=== PATIENT | female | born 1980 | race African-American/Black ===

== ENCOUNTER 2018-07-30 08:57 | Emergency (ER) | payer OTHER ==
[~2018-07-30] VITALS: Ht 157.5 cm; Wt 95.3 kg
--- OUTSIDE RECORDS SUMMARY | 2018-07-30 09:02 | XMS REPORT ---
Author Author [facility] Organization [facility] Address [address] [place], [place] [address] Care Team Providers Care Manager Statistics Name Role Phone PCP Unavailable Allergies and Adverse Reactions Name Reaction Notes NO KNOWN DRUG ALLERGIES Plan of Treatment Not available. Medications Active Name Start Date Estimated Completion Date SIG Comments Metaform Oral 500mg twice daily Bactrim DS Oral Tablet 160-800 mg take 1 tablet by oral route 2 times per day tylenol #3 po 1 q 4-6 hrs p.r.n. Humalog Subcutaneous Solution 100 unit/mL 11/28/2014 inject by subcutaneous route as per insulin sliding scale protocol Lantus Subcutaneous Solution 100 unit/mL 11/28/2014 inject 40 milliliters by subcutaneous route once a day (at bedtime) naproxen sodium oral tablet 550 mg 11/28/2014 12/08/2014 take 1 tablet (550 mg ) by oral route every 12 hours as needed for 10 days Keflex oral capsule 500 mg 11/28/2014 12/05/2014 take 1 capsule by oral route every 8 hours for 7 days Name Start Date Expiration Date SIG Comments Clindamycin HCl Oral Capsule 300 mg 12/05/2009 12/15/2009 take 1 capsule (300 mg) by oral route every 6 hours for 10 days ibuprofen Oral tablet 800 mg 05/03/2013 05/17/2013 take 1 tablet by oral route 3 times a day as needed for 14 days Problem List Description Status Onset Diabetes Active Bronchitis, chronic Active Vital Signs Date Time BP-Sys(mm[Hg] BP-Radha(mm[Hg]) HR(bpm) RR(rpm) Temp WT HT HC BMI BSA BMI Percentile O2 Sat(%) 11/28/2014 1:44:00 PM 120 mmHg 84 mmHg 84 bpm 16 rpm 97.6 F 12/16/2009 11:13:00 AM 100 mmHg 60 mmHg 72 bpm 18 rpm 97.2 F 12/09/2009 2:04:00 PM 110 mmHg 80 mmHg 72 bpm 18 rpm 97.7 F 12/05/2009 10:10:00 AM 110 mmHg 80 mmHg 78 bpm 18 rpm 96.6 F 12/01/2009 2:57:00 PM 100 mmHg 60 mmHg 80 bpm 18 rpm 97.4 F 175 lbs Social History Name Description Comments denies alcohol use denies smoking smokrd 5 months quit 2 months ago History of Procedures Date Ordered Description Order Status 05/03/2013 12:00 AM COMPLETE CBC W/AUTO DIFF WBC Returned 05/03/2013 12:00 AM COMPREHEN METABOLIC PANEL Returned 05/03/2013 12:00 AM GLYCOSYLATED HEMOGLOBIN TEST Returned 12/01/2009 12:00 AM DRAINAGE OF SKIN ABSCESS Reviewed Results Summary Data and Description Results 05/07/2013 8:40 AM GLUCOSE 184.0 mg/dLSODIUM 140.0 mmol/LPOTASSIUM 3.90 mmol/ LCHLORIDE 107.0 mmol/LCO2 27.0 mmol/LBUN 8.0 mg/dLCREATININE 0.70 mg/dLSGOT/AST 11.0 IU/LSGPT/ALT 10.0 IU/LALK PHOS 90.0 IU/LTOTAL PROTEIN 5.90 g/dLALBUMIN 3.40 g/dLTOTAL BILI 0.20 mg/dLCALCIUM 9.30 mg/dLeGFR >60 mL/min/1.73 m2HGB A1C 14.20 %WBC 8.7 RBC 4.55 HGB 12.80 g/dLHCT 37.20 %MCV 82.0 fLMCH 28.10 pgMCHC 34.40 g/dLRDW CV 12.70 %MPV 9.50 fLPLT 333 %NEUT 46.70 %%LYMP 43.60 %%MONO 6.60 %%EOS 2.90 %%BASO 0.20 %#NEUT 4.05 #LYMP 3.78 #MONO 0.57 #EOS 0.25 #BASO 0.02 History Of Immunizations Not available. History of Past Illness Name Date of Onset Comments Bronchitis, chronic Hemorrhoids, External Diabetes Abscess Dec 05 2009 10:11AM Abscess Of Finger Dec 01 2009 3:04PM Abscess Dec 09 2009 2:06PM Abscess Dec 16 2009 11:14AM Diabetes Mellitus, Type II, Uncontrolled May 03 2013 3:49PM Dental caries May 03 2013 3:49PM Diabetes mellitus, Type I Uncontrolled May 17 2013 4:26PM Diabetes Nov 28 2014 1:45PM Dental caries Nov 28 2014 1:45PM Poor vision Nov 28 2014 1:45PM Payers Insurance Name Company Name Plan Name Plan Number Policy Number Policy Group Number Start Date [place] - [place] [facility] ONLY Free Clinic [id number] N/A [facility] [id number] N/A [place] Clinic - [place] [facility] ONLY [facility] [id number] N/A History of Encounters Visit Date Visit Type Provider 11/28/2014 Office visit Gonzalez Morgan APRN 05/17/2013 Office visit Gonzalez Morgan APRN 05/03/2013 Office visit Gonzalez Morgan APRN 12/16/2009 Office visit Loyd Acuña MD 12/09/2009 Office visit Loyd Acuña MD 12/05/2009 Office visit Loyd Acuña MD 12/01/2009 Procedures Loyd Acuña MD 05/05/2009 Laboratory Tom Moreira MD
--- OUTSIDE RECORDS SUMMARY | 2018-07-30 09:03 | XMS REPORT ---
Author Author CHELSEA NORMAN Organization [facility] Address [address] [place] [address] Care Team Providers Care Camelid Fiber Sorter Name Role Phone CHELSEA NORMAN Unavailable PROBLEMS Type Condition ICD9-CM Code XXI76-BF Code Onset Dates Condition Status SNOMED Code Problem Proliferative diabetic retinopathy of both eyes with macular edema associated with type 2 diabetes mellitus E11.3513 Active 8607809640260 Problem manager intermediate current use of insulin Z79.4 Active 115622409 Problem Neuropathy G62.9 Active 480823886 Problem Vitreous hemorrhage, unspecified eye H43.10 Active 61474577 Problem Type 2 diabetes mellitus with unspecified diabetic retinopathy with macular edema E11.311 Active 6113079325658 Problem Iron deficiency anemia, unspecified iron deficiency anemia type D50.9 Active 13182869 Problem 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 56663429 ALLERGIES No Known Allergies ENCOUNTERS Encounter Location Date Diagnosis [address] [address] Apr, Type 2 diabetes mellitus with other circulatory complications E11.59 ; Iron deficiency anemia, unspecified iron deficiency anemia type D50.9 and BMI 40.0-44.9, adult Z68.41 [place] [address] [address] [place] [address] Apr, [place] [address] [address] [place] [id number] [place] [address] Apr, Type 2 diabetes mellitus with other circulatory complications E11.59 [place] [address] [address] [place] [id number] [place] [address] Mar, Type 2 diabetes mellitus with other circulatory complications E11.59 ; retirement current use of insulin Z79.4 ; Leg swelling M79.89 ; Pain in right leg M79.604 ; Pain of left leg M79.605 and BMI 40.0-44.9 , adult Z68.41 [facility] [address] [facility] [id number] [place] [address] Dec, [facility] [place] [address] [id number] [place] [address] Dec [facility] [address] [id number] [place] [address] Dec [facility] [place] [address] [id number] [place] [address] Dec [facility] [address] [id number] [place] [address] November Type 2 diabetes mellitus with other circulatory complications E11.59 ; manager intermediate current use of insulin Z79.4 ; Iron deficiency anemia, unspecified iron deficiency anemia type D50.9 and BMI 40.0-44.9, adult Z68.41 [facility] [address] [id number] [place] [address] November [facility] [address] [facility] [id number] [place] [address] November, [facility] DIAMONDSHAMIKA [id number] [address] November Type 2 diabetes mellitus with other circulatory complications E11.59 ; retirement current use of insulin Z79.4 and Hx of retinal hemorrhage Z86.69 [facility] [address] [id number] [place] [address] November Type 2 diabetes mellitus with other circulatory complications E11.59 ; manager intermediate current use of insulin Z79.4 ; Iron deficiency anemia, unspecified iron deficiency anemia type D50.9 ; Neuropathy G62.9 ; Drug-induced constipation K59.03 ; Peripheral edema R60.9 ; Hx of retinal hemorrhage Z86.69 and BMI 40.0-44.9, adult Z68.41 IMMUNIZATIONS No Known Immunizations SOCIAL HISTORY Never Assessed REASON FOR VISIT headaches / BP concerns-twooden,RMA, pt complaining of headaches for about month now, and her blood sugar is high PLAN OF CARE Activity Details Follow Up 4 Weeks Reason:DM2 f/u VITAL SIGNS Height 62 in 2018-05-23 Weight 233.4 lbs 2018-05-23 Temperature 98.0 degrees Fahrenheit 2018-05-23 Heart Rate 91 bpm 2018-05-23 Respiratory Rate 18 2018-05-23 Oximetry on room air:100 % 2018-05-23 BMI 42.68 kg/m2 2018-05-23 Blood pressure systolic 114 mmHg 2018-05-23 Blood pressure diastolic 82 mmHg 2018-05-23 MEDICATIONS Medication Instructions Dosage Frequency Start Date End Date Duration Status Potassimin 20 meq Orally Once a day 1 tablet 24h Jun, 30 days Active Docusate Sodium 100 MG Orally 2 times a day 1 capsule as needed 12h Active Aspirin Adult Low Dose 81 MG Orally Once a day 1 tablet 24h Active Fiber-Lax 625 MG Orally Once a day 1 tablet as needed 24h Active Furosemide 40 mg Orally 2 times a day 1 tablet 12h 30 days Active Atorvastatin Calcium 10 mg Orally Once a day 1 tablet 24h Apr, 30 day(s) Active Ferrous Sulfate 325 (65 Fe) MG Orally 2 times a day 1 tablet 12h Active Levemir Flexpen 100 UNIT/ML Subcutaneous daily at bedtime inject 20 units Apr, 30 days Active Olmesartan Medoxomil 5 mg Orally Once a day 1 tablet 24h Apr, 90 days Active NovoLog Flexpen 100 UNIT/ML Subcutaneous 3 times a day 5 units 8h November, Active RESULTS No Results PROCEDURES No Known procedures INSTRUCTIONS MEDICATIONS ADMINISTERED No Known Medications MEDICAL (GENERAL) HISTORY Type Description Date Medical History diabetes Medical History Nerve damage Surgical History section X 3 Surgical History cyst removal Surgical History cholecystectomy Surgical History Mass removed from Lt breast Surgical History Laser eye surgery balateral Hospitalization History child Hospitalization History surgeries
--- OUTSIDE RECORDS SUMMARY | 2018-07-30 09:03 | XMS REPORT ---
Author Author CHELSEA NORMAN Organization [facility] Address [address] [place] [address] Care Team Providers Care Lidder Name Role Phone CHELSEA NORMNA Unavailable PROBLEMS Type Condition ICD9-CM Code SZE33-FX Code Onset Dates Condition Status SNOMED Code Problem Proliferative diabetic retinopathy of both eyes with macular edema associated with type 2 diabetes mellitus E11.3513 Active 8329379392340 Problem pipe straightener current use of insulin Z79.4 Active 973921417 Problem Neuropathy G62.9 Active 712394767 Problem Vitreous hemorrhage, unspecified eye H43.10 Active 47406460 Problem Type 2 diabetes mellitus with unspecified diabetic retinopathy with macular edema E11.311 Active 9154401894442 Problem Iron deficiency anemia, unspecified iron deficiency anemia type D50.9 Active 95145853 Problem 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 55160537 ALLERGIES No Information ENCOUNTERS Encounter Location Date Diagnosis [place] [address] [place] [address] Apr, [place] [address] [place] [address] Apr, Type 2 diabetes mellitus with other circulatory complications E11.59 [place] [address] [address] [place] [address] Mar, Type 2 diabetes mellitus with other circulatory complications E11.59 ; pipe straightener current use of insulin Z79.4 ; Leg swelling M79.89 ; Pain in right leg M79.604 ; Pain of left leg M79.605 and BMI 40.0-44.9 , adult Z68.41 [facility] [address], [place] [address] Dec, [facility] [id number] [place] [address] Dec [facility] [address] [id number] [place] [address] Dec [facility] [address] [id number] [place] [address] Dec [facility] [place] [address] [id number] [place] [address] November Type 2 diabetes mellitus with other circulatory complications E11.59 ; pipe straightener current use of insulin Z79.4 ; Iron deficiency anemia, unspecified iron deficiency anemia type D50.9 and BMI 40.0-44.9, adult Z68.41 [facility] [place] [address] [id number] [place] [address] November [facility] [address] [facility] [id number] [place] [address] November, [facility] [place] [address] [id number] [place] [address] November Type 2 diabetes mellitus with other circulatory complications E11.59 ; pipe straightener current use of insulin Z79.4 and Hx of retinal hemorrhage Z86.69 [facility] L[address] [address] [id number] [place] [address] November Type 2 diabetes mellitus with other circulatory complications E11.59 ; pipe straightener current use of insulin Z79.4 ; Iron deficiency anemia, unspecified iron deficiency anemia type D50.9 ; Neuropathy G62.9 ; Drug-induced constipation K59.03 ; Peripheral edema R60.9 ; Hx of retinal hemorrhage Z86.69 and BMI 40.0-44.9, adult Z68.41 IMMUNIZATIONS No Known Immunizations SOCIAL HISTORY Never Assessed REASON FOR VISIT Lab/meds PLAN OF CARE VITAL SIGNS MEDICATIONS Unknown Medications RESULTS No Results PROCEDURES No Known procedures [...]
--- OUTSIDE RECORDS SUMMARY | 2018-07-30 09:03 | XMS REPORT ---
Author Author CHELSEA NORMAN Organization [facility] Address [address] [place] [address] Care Team Providers Care Resource Center Teacher Name Role Phone CHELSEA NORMAN Unavailable PROBLEMS Type Condition ICD9-CM Code IIC72-PP Code Onset Dates Condition Status SNOMED Code Problem Proliferative diabetic retinopathy of both eyes with macular edema associated with type 2 diabetes mellitus E11.3513 Active 6472395667183 Problem intermission coordinator current use of insulin Z79.4 Active 827966248 Problem Neuropathy G62.9 Active 064867672 Problem Vitreous hemorrhage, unspecified eye H43.10 Active 87129308 Problem Type 2 diabetes mellitus with unspecified diabetic retinopathy with macular edema E11.311 Active 3051073779438 Problem Iron deficiency anemia, unspecified iron deficiency anemia type D50.9 Active 25003576 Problem 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 50931314 ALLERGIES No Information ENCOUNTERS Encounter Location Date Diagnosis [place] [address] [place] [address] Apr, [place] [address] [place] [address] Apr, Type 2 diabetes mellitus with other circulatory complications E11.59 [place] [address] [address] [place] [address] Mar, Type 2 diabetes mellitus with other circulatory complications E11.59 ; intermission coordinator current use of insulin Z79.4 ; Leg swelling M79.89 ; Pain in right leg M79.604 ; Pain of left leg M79.605 and BMI 40.0-44.9 , adult Z68.41 [facility] [address] [address] Dec, [facility] [id number] [place] [address] Dec [facility] [address] [address] [id number] [place] [address] Dec [facility] [address] [id number] [place] [address] Dec [facility] [address] [address] [id number] [place] [address] November Type 2 diabetes mellitus with other circulatory complications E11.59 ; intermission coordinator current use of insulin Z79.4 ; Iron deficiency anemia, unspecified iron deficiency anemia type D50.9 and BMI 40.0-44.9, adult Z68.41 [facility] [place] [address] [id number] [place] [address] November [facility] [address] [facility] [id number] [place] [address] November, [facility] DIAMOND [address] [id number] [place] [address] November Type 2 diabetes mellitus with other circulatory complications E11.59 ; intermission coordinator current use of insulin Z79.4 and Hx of retinal hemorrhage Z86.69 [facility] [place] [address] [id number] [place] [address] November Type 2 diabetes mellitus with other circulatory complications E11.59 ; intermission coordinator current use of insulin Z79.4 ; Iron deficiency anemia, unspecified iron deficiency anemia type D50.9 ; Neuropathy G62.9 ; Drug-induced constipation K59.03 ; Peripheral edema R60.9 ; Hx of retinal hemorrhage Z86.69 and BMI 40.0-44.9, adult Z68.41 IMMUNIZATIONS No Known Immunizations SOCIAL HISTORY Never Assessed REASON FOR VISIT Lantus PLAN OF CARE VITAL SIGNS MEDICATIONS Medication Instructions Dosage Frequency Start Date End Date Duration Status Atorvastatin Calcium 10 mg Orally Once a day 1 tablet 24h Apr, 30 day(s) Active Levemir Flexpen 100 UNIT/ML Subcutaneous daily at bedtime inject 15 units Apr, Active RESULTS No Results PROCEDURES No Known [...]
--- OUTSIDE RECORDS SUMMARY | 2018-07-30 09:04 | XMS REPORT | Continuity of Care Document ---
Author Author [facility] Organization [facility] Address Unknown Phone Unavailable Allergies There is no data. Medications There is no data. Problems There is no data. Procedures There is no data. Results Test Result Range CBC - 04/18/18 15:24 WHITE BLOOD CELL COUNT 8.7 Thousand/uL 3.8-10.8 RED BLOOD CELL COUNT 4.27 Million/uL 3.80-5.10 HEMOGLOBIN 10.0 g/dL 11.7-15.5 HEMATOCRIT 33.1 % 35.0-45.0 MCV 77.5 fL 80.0-100.0 MCH 23.4 pg 27.0-33.0 MCHC 30.2 g/dL 32.0-36.0 RDW 12.7 % 11.0-15.0 PLATELET COUNT 399 Thousand/uL 140-400 MPV 10.3 fL 7.5-12.5 ABSOLUTE NEUTROPHILS 5733 cells/uL 4045-3291 ABSOLUTE LYMPHOCYTES 2158 cells/uL 850-3900 ABSOLUTE MONOCYTES 626 cells/uL 200-950 ABSOLUTE EOSINOPHILS 139 cells/uL 15-500 ABSOLUTE BASOPHILS 44 cells/uL 0-200 NEUTROPHILS 65.9 % NRG LYMPHOCYTES 24.8 % NRG MONOCYTES 7.2 % NRG EOSINOPHILS 1.6 % NRG BASOPHILS 0.5 % NRG Encounters ACCT No. Visit Date/Time Discharge Status Pt. Type Provider Facility Loc./Unit Complaint [id number] 11/28/2014 14:34:38 11/28/2014 23:59:59 CLS Outpatient Gonzalez Morgan [id number] 01/18/2018 10:00:00 01/18/2018 23:59:59 [address] LI [facility] [id number] 04/18/2018 14:20:00 Document Registration
--- OUTSIDE RECORDS SUMMARY | 2018-07-30 09:04 | XMS REPORT ---
Author Author HARMAN LI [facility] L[facility] Address [address] [place] [address] Care Team Providers Care Flight Test Shop Mechanic Name Role Phone HARMAN LI Unavailable PROBLEMS Type Condition ICD9-CM Code ZEA96-SU Code Onset Dates Condition Status SNOMED Code Problem Proliferative diabetic retinopathy of both eyes with macular edema associated with type 2 diabetes mellitus E11.3513 Active 4614266191087 Problem intermediate project manager current use of insulin Z79.4 Active 960053826 Problem Neuropathy G62.9 Active 522704537 Problem Vitreous hemorrhage, unspecified eye H43.10 Active 36889580 Problem Type 2 diabetes mellitus with unspecified diabetic retinopathy with macular edema E11.311 Active 6026371607543 Problem Iron deficiency anemia, unspecified iron deficiency anemia type D50.9 Active 27249204 Problem 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 89407541 ALLERGIES No Information ENCOUNTERS Encounter Location Date Diagnosis [facility] [address] [facility] [id number] [place] [address] Dec, [facility] [address] [address] [id number] [place] [address] Dec [facility] [address] [address] [id number] [place] [address] Dec [facility] [address] [id number] [place] [address] Dec [facility] [place] [address] [id number] [place] [address] November Type 2 diabetes mellitus with other circulatory complications E11.59 ; half-way current use of insulin Z79.4 ; Iron deficiency anemia, unspecified iron deficiency anemia type D50.9 and BMI 40.0-44.9, adult Z68.41 [facility] [place] [address] [id number] [place] [address] November [facility] [address] [facility] [id number] [place] [address] November, [facility] [address] [id number] [place] [address] November Type 2 diabetes mellitus with other circulatory complications E11.59 ; intermediate project manager current use of insulin Z79.4 and Hx of retinal hemorrhage Z86.69 [facility] [address] [id number] [place] [address] November Type 2 diabetes mellitus with other circulatory complications E11.59 ; intermediate project manager current use of insulin Z79.4 ; Iron deficiency anemia, unspecified iron deficiency anemia type D50.9 ; Neuropathy G62.9 ; Drug-induced constipation K59.03 ; Peripheral edema R60.9 ; Hx of retinal hemorrhage Z86.69 and BMI 40.0-44.9, adult Z68.41 IMMUNIZATIONS No Known Immunizations SOCIAL HISTORY Never Assessed REASON FOR VISIT eye exam PLAN OF CARE VITAL SIGNS MEDICATIONS Unknown [...]
--- OUTSIDE RECORDS SUMMARY | 2018-07-30 09:04 | XMS REPORT ---
Author Author HARMAN LI [facility] LOBO Address [address] [place] [address] Care Team Providers Care Sheep Farm Worker Name Role Phone HARMAN LI Unavailable PROBLEMS Type Condition ICD9-CM Code VKC22-CP Code Onset Dates Condition Status SNOMED Code Problem Proliferative diabetic retinopathy of both eyes with macular edema associated with type 2 diabetes mellitus E11.3513 Active 4595055667139 Problem termite exterminator current use of insulin Z79.4 Active 887154616 Problem Neuropathy G62.9 Active 206038081 Problem Vitreous hemorrhage, unspecified eye H43.10 Active 23180799 Problem Type 2 diabetes mellitus with unspecified diabetic retinopathy with macular edema E11.311 Active 8693648243478 Problem Iron deficiency anemia, unspecified iron deficiency anemia type D50.9 Active 11626714 Problem 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 [id number] [place] [address] Dec, [facility] [address] [address] [id number] [place] [address] Dec [facility] [address] [id number] [place] [address] Dec [facility] [address] [id number] [place] [address] Dec [facility] [place] [address] [id number] [place] [address] November Type 2 diabetes mellitus with other circulatory complications E11.59 ; MCFP current use of insulin Z79.4 ; Iron deficiency anemia, unspecified iron deficiency anemia type D50.9 and BMI 40.0-44.9, adult Z68.41 [facility] [place] [address] [id number] [place] [address] November [facility] [address] [facility] [id number] [place] [address] November, [facility] [address] [id number] [place] [address] November Type 2 diabetes mellitus with other circulatory complications E11.59 ; termite exterminator current use of insulin Z79.4 and Hx of retinal hemorrhage Z86.69 [facility] [address] [id number] [place] [address] November Type 2 diabetes mellitus with other circulatory complications E11.59 ; termite exterminator current use of insulin Z79.4 ; Iron deficiency anemia, unspecified iron deficiency anemia type D50.9 ; Neuropathy G62.9 ; Drug-induced constipation K59.03 ; Peripheral edema R60.9 ; Hx of retinal hemorrhage Z86.69 and BMI 40.0-44.9, adult Z68.41 IMMUNIZATIONS No Known Immunizations SOCIAL HISTORY Never Assessed REASON FOR VISIT FYI only PLAN OF CARE VITAL SIGNS MEDICATIONS Unknown [...]
--- OUTSIDE RECORDS SUMMARY | 2018-07-30 09:04 | XMS REPORT | CCD ---
Author Author RANDEE RADER Organization Unknown Address [address] [facility] [address] [place], [place] [address] Care Team Providers Care Informatics Pharmacist Name Role Phone MIGUEL JUAREZ, CHELSEA Del Rio Attphyedith CHELSEA RIVERA MDsularissa Vital Signs Unknown. Allergies Allergy Code Allergy Type Reaction Status No Known Allergies 0 No known allergies Active Procedures Unknown. History of Immunizations Unknown. Problems Unknown. Results Unknown. Medications Unknown. Medications Administered Unknown. Encounters Unknown. Social History Smoking Status Code Start Date End Date Never smoker [id number] Patient Decision Aids Unknown. Discharge Instructions You were admitted to [facility] on 12/16/2013. You were discharged from [facility] on 12/16/2013. Should you have any questions prior to discharge, please contact a member of your healthcare team. If you have left the hospital and have any questions, please contact your primary care physician. Chief Complaint and Reason For Visit Chief Complaint Date of Onset HAND SWELLING Function Status Unknown. Referral/Transition of Care Unknown.
--- OUTSIDE RECORDS SUMMARY | 2018-07-30 09:04 | XMS REPORT ---
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 [id number] [place] [address] Dec, [facility] [address] [id number] [place] [address] Dec [facility] [address] [id number] [place] [address] Dec [facility] [address] [id number] [place] [address] Dec [facility] [address] [id number] [place] [address] November Type 2 diabetes mellitus with other circulatory complications E11.59 ; retirement current use of insulin Z79.4 ; Iron deficiency anemia, unspecified iron deficiency anemia type D50.9 and BMI 40.0-44.9, adult Z68.41 [facility] [place] [address] [id number] [place] [address] November [facility] [address] [facility] [id number] [place] [address] November, [facility] [address] [id number] [place] [address] November Type 2 diabetes mellitus with other circulatory complications E11.59 ; termite control service representative current use of insulin Z79.4 and Hx of retinal hemorrhage Z86.69 [facility] [address] [id number] [place] [address] November Type 2 diabetes mellitus with other circulatory complications E11.59 ; termite control service representative current use of insulin Z79.4 ; Iron deficiency anemia, unspecified iron deficiency anemia type D50.9 ; Neuropathy G62.9 ; Drug-induced constipation K59.03 ; Peripheral edema R60.9 ; Hx of retinal hemorrhage Z86.69 and BMI 40.0-44.9, adult Z68.41 IMMUNIZATIONS No Known Immunizations SOCIAL HISTORY Never Assessed REASON FOR VISIT Repository Medication PLAN OF CARE VITAL SIGNS MEDICATIONS Unknown [...]
--- OUTSIDE RECORDS SUMMARY | 2018-07-30 09:04 | XMS REPORT | CCD ---
Author Author FAYE ORDAZ Organization Unknown Address [address] [facility] [address] [place], [place] [address] Care Team Providers Care Mender Knit Goods Name Role Phone [place] ER, PATRICIA DO Attphys [place] ER, PATRICIA DO Prisurg Vital Signs Unknown or Not Available. Allergies Allergy Code Allergy Type Reaction Status No Known Allergies 0 No known allergies Active Procedures Procedure Code Procedure Type Date BEDSIDE GLUCOSE 06406463 SNOMED CT 05/14/2014 CULTURE URINE 378656433 SNOMED CT 05/14/2014 ^CBC W/AUTO DIFF 4067732 SNOMED CT 05/14/2014 URINALYSIS C&S IF IND 160647826 SNOMED CT 05/14/[address] 05/14/2014 COMPREHENSIVE METABOLIC PANEL 470676380 SNOMED CT 2013 CBC W/ AUTO DIFF (RFLX MAN DIFF IF IND) 5128050 SNOMED CT 05/14/2014 History of Immunizations Unknown or Not Available. Problems Unknown or Not Available. Results BEDSIDE GLUCOSE - Collect Date/Time: 05/14/2014 18:11 Test Name Code Test Result Test Units Test Ref Range GLUCOSE POCT 260 MG/DL L=70 H=100 COMPREHENSIVE METABOLIC PANEL - Collect Date/Time: 05/14/2014 17:20 Test Name Code Test Result Test Units Test Ref Range GLUCOSE 2345-7 521 MG/DL L=70 H=100 SODIUM 2951-2 133 MEQ/L L=135 H=148 POTASSIUM 2823-3 4.1 MEQ/L L=3.5 H=5.3 CHLORIDE 2075-0 99 MEQ/L L=96 H=110 CO2 2028-9 24 MEQ/L L=22 H=29 BUN 3094-0 11 MG/DL L=8 H=22 CREATININE 2160-0 0.8 MG/DL L=0.6 H=1.6 SGOT/AST 1920-8 10 IU/L L=10 H=40 SGPT/ALT 1742-6 9 IU/L L=8 H=54 ALK PHOS 6768-6 84 IU/L L=35 H=115 TOTAL PROTEIN 2885-2 6.0 G/DL L=5.5 H=8.5 ALBUMIN 1751-7 3.4 G/DL L=3.1 H=5.4 TOTAL BILI 1975-2 0.2 MG/DL L=0.0 H=1.5 CALCIUM 28972-6 9.0 MG/DL L=8.2 H=10.6 AGE 33 yrs GFR NonAA 82 GFR AA 99 eGFR 60 mL/min/1.7 eGFR AA* 60 mL/min/1.7 RECHECKED GLUCOSE N/A LIPASE - Collect Date/Time: 05/14/2014 17:20 Test Name Code Test Result Test Units Test Ref Range LIPASE 3040-3 45 U/L L=8 H=78 CBC W/ AUTO DIFF (RFLX MAN DIFF IF IND) - Collect Date/Time: 05/14/2014 17:20 Test Name Code Test Result Test Units Test Ref Range WBC 34180-4 7.7 TH/CMM L=4.5 H=10.8 RBC 789-8 4.48 ML/CMM L=4.20 H=5.40 HGB 718-7 12.4 G/DL L=12.0 H=16.0 HCT 4544-3 36.2 % L=37.0 H=47.0 MCV 81 FL L=81 H=99 MCH 27.7 PG L=27.0 H=33.0 MCHC 34.3 G/DL L=31.0 H=36.0 RDW SD 37 FL L=36 H=50 RDW CV 12.8 % L=0.0 H=14.8 MPV 9.4 FL L=9.3 H=12.5 PLT 777-3 272 TH/CMM L=130 H=440 NRBC# 0.00 TH/CMM L=0.00 H=0.00 NRBC% 0.0 /100WBC L=0.0 H=2.0 %NEUT 53.4 % %LYMP 39.6 % %MONO 5.1 % %EOS 1.6 % %BASO 0.3 % #NEUT 4.10 TH/CMM L=2.10 H=8.20 #LYMP 3.03 TH/CMM L=0.90 H=5.20 #MONO 0.39 TH/CMM L=0.16 H=1.00 #EOS 0.12 TH/CMM L=0.00 H=0.80 #BASO 0.02 TH/CMM L=0.00 H=0.20 MANUAL DIFF NOT IND N/A URINALYSIS C&S IF IND - Collect Date/Time: 05/14/2014 17:45 Test Name Code Test Result Test Units Test Ref Range COLOR YELLOW N/A NL: YELLOW APPEARANCE CLEAR N/A NL: CLEAR SPEC GRAV <=1.005 N/A NL: 1.002 - 1.022 pH 6.0 N/A NL: 5 - 9 PROTEIN NEGATIVE N/A NL: NEGATIVE mg/dl GLUCOSE >=1000 N/A NL: NEGATIVE mg/dl KETONE NEGATIVE N/A NL: NEGATIVE mg/dl BILIRUBIN NEGATIVE N/A NL: NEGATIVE BLOOD SMALL N/A NL: NEGATIVE NITRITE NEGATIVE N/A NL: NEGATIVE LEUK SCREEN NEGATIVE N/A NL: NEGATIVE WBC/HPF 5-10 N/A NL: NEGATIVE RBC/HPF 0-5 N/A NL: NEGATIVE CASTS/LPF NEGATIVE N/A NL: NEGATIVE CRYSTALS NEGATIVE N/A NL: NEGATIVE MUCOUS THRDS NEGATIVE N/A NL: NEGATIVE BACTERIA 1+ N/A NL: NEGATIVE EPITH CELLS 1+ SQUAMOUS N/A NL: NEGATIVE TRICHOMONAS NEGATIVE N/A NL: NEGATIVE YEAST NEGATIVE N/A NL: NEGATIVE CULT SET UP? YES N/A Medications Unknown or Not Available. Medications Administered Unknown or Not Available. Encounters Encounter Diagnosis Diagnosis Code Start Date OTHER ABNORMAL GLUCOSE 82425 05/14/2014 Social History Smoking Status Code Start Date End Date Never smoker 787688556 Patient Decision Aids Unknown or Not Available. Discharge Instructions You were admitted to [facility] on 05/14/2014 with a principal diagnosis of OTHER ABNORMAL GLUCOSE. You were discharged from [facility] on 05/14/2014. Should you have any questions prior to discharge, please contact a member of your healthcare team. If you have left the hospital and have any questions, please contact your primary care physician. Chief Complaint and Reason For Visit Chief Complaint Date of Onset NAUSEA VOMITING Function Status Unknown or Not Available. Referral/Transition of Care Unknown or Not Available.
--- OUTSIDE RECORDS SUMMARY | 2018-07-30 09:04 | XMS REPORT ---
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 Z79.4 Active 472046719 Problem Neuropathy G62.9 Active 916682356 Problem Vitreous hemorrhage, unspecified eye H43.10 Active 71542195 Problem Type 2 diabetes mellitus with unspecified diabetic retinopathy with macular edema E11.311 Active 6374056712385 Problem Iron deficiency anemia, unspecified iron deficiency anemia type D50.9 Active 14137762 Problem 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 70124960 ALLERGIES No Information ENCOUNTERS Encounter Location Date Diagnosis [facility] [place] [address] [facility] [id number] [place] [address] Dec, [facility] [address] [id number] [place] [address] Dec [facility] [address] [id number] [place] [address] Dec [facility] [address] [id number] [place] [address] Dec [facility] [address] [id number] [place] [address] November Type 2 diabetes mellitus with other circulatory complications E11.59 ; intermediate current use of insulin Z79.4 ; Iron deficiency anemia, unspecified iron deficiency anemia type D50.9 and BMI 40.0-44.9, adult Z68.41 [facility] [place] [address] [id number] [place] [address] November [facility] [place] [address] [facility] [id number] [place] [address] November, [facility] [address] [id number] [place] [address] November Type 2 diabetes mellitus with other circulatory complications E11.59 ; roasterman current use of insulin Z79.4 and Hx of retinal hemorrhage Z86.69 [facility] [address] [id number] [place] [address] November Type 2 diabetes mellitus with other circulatory complications E11.59 ; roasterman current use of insulin Z79.4 ; Iron deficiency anemia, unspecified iron deficiency anemia type D50.9 ; Neuropathy G62.9 ; Drug-induced constipation K59.03 ; Peripheral edema R60.9 ; Hx of retinal hemorrhage Z86.69 and BMI 40.0-44.9, adult Z68.41 IMMUNIZATIONS No Known Immunizations SOCIAL HISTORY Never Assessed REASON FOR VISIT PLAN OF CARE VITAL SIGNS MEDICATIONS Unknown [...]
--- OUTSIDE RECORDS SUMMARY | 2018-07-30 09:04 | XMS REPORT ---
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.4 Active 643602990 Problem Neuropathy G62.9 Active 324191779 Problem Vitreous hemorrhage, unspecified eye H43.10 Active 16392057 Problem Type 2 diabetes mellitus with unspecified diabetic retinopathy with macular edema E11.311 Active 5315123674149 Problem Iron deficiency anemia, unspecified iron deficiency anemia type D50.9 Active 29411867 Problem 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 23329699 ALLERGIES No Information ENCOUNTERS Encounter Location Date Diagnosis [facility] [address] [facility] [id number] [place] [address] Dec, [facility] [address] [id number] [place] [address] Dec [facility] [address] [id number] [place] [address] Dec [facility] [address] [id number] [place] [address] Dec [facility] [address] [id number] [place] [address] November Type 2 diabetes mellitus with other circulatory complications E11.59 ; FPC current use of insulin Z79.4 ; Iron deficiency anemia, unspecified iron deficiency anemia type D50.9 and BMI 40.0-44.9, adult Z68.41 [facility] [address] [id number] [place] [address] November [facility] [address] [facility] [id number] [place] [address] November, [facility] [place] [address] [id number] [place] [address] November Type 2 diabetes mellitus with other circulatory complications E11.59 ; termite exterminator helper current use of insulin Z79.4 and Hx of retinal hemorrhage Z86.69 [facility] [address] [id number] [place] [address] November Type 2 diabetes mellitus with other circulatory complications E11.59 ; termite exterminator helper current use of insulin Z79.4 ; Iron deficiency anemia, unspecified iron deficiency anemia type D50.9 ; Neuropathy G62.9 ; Drug-induced constipation K59.03 ; Peripheral edema R60.9 ; Hx of retinal hemorrhage Z86.69 and BMI 40.0-44.9, adult Z68.41 IMMUNIZATIONS No Known Immunizations SOCIAL HISTORY Never Assessed REASON FOR VISIT Requests return call PLAN OF CARE VITAL SIGNS MEDICATIONS Unknown [...]
--- OUTSIDE RECORDS SUMMARY | 2018-07-30 09:04 | XMS REPORT ---
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.4 Active 262979065 Problem Neuropathy G62.9 Active 777019173 Problem Vitreous hemorrhage, unspecified eye H43.10 Active 24748751 Problem Type 2 diabetes mellitus with unspecified diabetic retinopathy with macular edema E11.311 Active 6462990870944 Problem Iron deficiency anemia, unspecified iron deficiency anemia type D50.9 Active 32215511 Problem 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 85592706 ALLERGIES No Information ENCOUNTERS Encounter Location Date Diagnosis [facility] [address] [facility] [id number] [place] [address] Dec, [facility] [address] [id number] [place] [address] Dec [facility] [address] [id number] [place] [address] Dec [facility] [place] [address] [id number] [place] [address] Dec [facility] [address] [id number] [place] [address] November Type 2 diabetes mellitus with other circulatory complications E11.59 ; longterm current use of insulin Z79.4 ; Iron deficiency anemia, unspecified iron deficiency anemia type D50.9 and BMI 40.0-44.9, adult Z68.41 [facility] [place] [address] [id number] [place] [address] November [facility] [address] [facility] [id number] [place] [address] November, [facility] [address] [id number] [place] [address] November Type 2 diabetes mellitus with other circulatory complications E11.59 ; ad terminal makeup operator current use of insulin Z79.4 and Hx of retinal hemorrhage Z86.69 [facility] [address] [id number] [place] [address] November Type 2 diabetes mellitus with other circulatory complications E11.59 ; ad terminal makeup operator current use of insulin Z79.4 ; Iron deficiency anemia, unspecified iron deficiency anemia type D50.9 ; Neuropathy G62.9 ; Drug-induced constipation K59.03 ; Peripheral edema R60.9 ; Hx of retinal hemorrhage Z86.69 and BMI 40.0-44.9, adult Z68.41 IMMUNIZATIONS No Known Immunizations SOCIAL HISTORY Never Assessed REASON FOR VISIT Patient care status PLAN OF CARE VITAL SIGNS MEDICATIONS Unknown [...]
--- OUTSIDE RECORDS SUMMARY | 2018-07-30 09:04 | XMS REPORT | CCD ---
Author Author FAYE ORDAZ Organization Unknown Address [address] [facility] [address] [place], [place] [address] Care Team Providers Care Aircraft Tool Maker Name Role Phone [place] ER, APTRICIA DO Attphys [place] ER, PATRICIA DO Prisurg Vital Signs Unknown or Not Available. Allergies Allergy Code Allergy Type Reaction Status No Known Allergies 0 No known allergies Active Procedures Procedure Code Procedure Type Date BEDSIDE GLUCOSE 32116125 SNOMED CT 05/16/2014 History of Immunizations Unknown or Not Available. Problems Unknown or Not Available. Results BEDSIDE GLUCOSE - Collect Date/Time: 05/16/2014 19:55 Test Name Code Test Result Test Units Test Ref Range GLUCOSE POCT 139 MG/DL L=70 H=100 Medications Unknown or Not Available. Medications Administered Unknown or Not Available. Encounters Encounter Diagnosis Diagnosis Code Start Date DIABETES W OTH SPEC MANIFEST,TYPE 2 24662 05/16/2014 Social History Smoking Status Code Start Date End Date Never smoker 140257220 Patient Decision Aids Unknown or Not Available. Discharge Instructions You were admitted to [facility] on 05/16/2014 with a principal diagnosis of DIABETES W OTH SPEC MANIFEST,TYPE 2. You were discharged from [facility] on 05/16/2014. Should you have any questions prior to discharge, please contact a member of your healthcare team. If you have left the hospital and have any questions, please contact your primary care physician. Chief Complaint and Reason For Visit Chief Complaint Date of Onset DIZZINESS HEADACHE HIGH BLOOD SUGAR Function Status Unknown or Not Available. Referral/Transition of Care Unknown or Not Available.
--- OUTSIDE RECORDS SUMMARY | 2018-07-30 09:04 | XMS REPORT ---
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 Z79.4 Active 681723964 Problem Neuropathy G62.9 Active 978979274 Problem Vitreous hemorrhage, unspecified eye H43.10 Active 76670339 Problem Type 2 diabetes mellitus with unspecified diabetic retinopathy with macular edema E11.311 Active 6220123646921 Problem Iron deficiency anemia, unspecified iron deficiency anemia type D50.9 Active 61927627 Problem 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 84291230 ALLERGIES No Known Allergies ENCOUNTERS Encounter Location Date Diagnosis [place] [address] [id number] [place] [address] 04 Apr, 2018 Type 2 diabetes mellitus with other circulatory complications E11.59 [place] [id number] [place] [address] Mar, Type 2 diabetes mellitus with other circulatory complications E11.59 ; alf current use of insulin Z79.4 ; Leg swelling M79.89 ; Pain in right leg M79.604 ; Pain of left leg M79.605 and BMI 40.0-44.9 , adult Z68.41 [facility] [address] [address] Dec, [facility] [address] [id number] [place] [address] Dec [facility] [address] [id number] [place] [address] Dec [facility] [address] [id number] [place] [address] Dec [facility] [address] [id number] [place] [address] November Type 2 diabetes mellitus with other circulatory complications E11.59 ; terminal supervisor current use of insulin Z79.4 ; Iron deficiency anemia, unspecified iron deficiency anemia type D50.9 and BMI 40.0-44.9, adult Z68.41 [facility] [address] [id number] [place] [address] November [facility] [address] [facility] [id number] [place] [address] November, [facility] [address] [address] [id number] [place] [address] November Type 2 diabetes mellitus with other circulatory complications E11.59 ; alf current use of insulin Z79.4 and Hx of retinal hemorrhage Z86.69 [facility] [address] [id number] [place] [address] November Type 2 diabetes mellitus with other circulatory complications E11.59 ; alf current use of insulin Z79.4 ; Iron deficiency anemia, unspecified iron deficiency anemia type D50.9 ; Neuropathy G62.9 ; Drug-induced constipation K59.03 ; Peripheral edema R60.9 ; Hx of retinal hemorrhage Z86.69 and BMI 40.0-44.9, adult Z68.41 IMMUNIZATIONS No Known Immunizations SOCIAL HISTORY Never Assessed REASON FOR VISIT New provider visit-AMBREEN scherer, patient complain of her right eye is bleeding. blurried visions in right eye PLAN OF CARE Activity Details Follow Up 3 Months Reason: Pending Test A1C (IN HOUSE) Pending Test TSH w/ FREE T4 Pending Test LIPID PANEL Pending Test CMP Pending Test CBC VITAL SIGNS Height 62 in 2018-04-18 Weight 229.8 lbs 2018-04-18 Temperature 98.0 degrees Fahrenheit 2018-04-18 Heart Rate 93 bpm 2018-04-18 Respiratory Rate 18 2018-04-18 Oximetry on room air:100 % 2018-04-18 BMI 42.03 kg/m2 2018-04-18 Blood pressure systolic 110 mmHg 2018-04-18 Blood pressure diastolic 92 mmHg 2018-04-18 MEDICATIONS Medication Instructions Dosage Frequency Start Date End Date Duration Status Lantus SoloStar 100 UNIT/ML Subcutaneous daily at bedtime 15 units November 90 days Active Potassimin 20 meq Orally Once a day 1 tablet 24h Jun, 30 days Active Furosemide 40 mg Orally 2 times a day 1 tablet 12h 30 days Active Aspirin Adult Low Dose 81 MG Orally Once a day 1 tablet 24h Active Nabumetone 750 mg Orally 2 times a day 1 tablet 12h Jun, 30 days Active Fiber-Lax 625 MG Orally Once a day 1 tablet as needed 24h Active Ferrous Sulfate 325 (65 Fe) MG Orally 2 times a day 1 tablet 12h Active NovoLog Flexpen 100 UNIT/ML Subcutaneous 3 times a day 5 units 8h November, 90 days Active Docusate Sodium 100 MG Orally 2 times a day 1 capsule as needed 12h Active APAP 325 MG Orally 2 times a day 1 tablet as needed 12h Active RESULTS Name Result Date Reference Range MICROALBUMIN, URINE (IN HOUSE) 2018-04-18 MICROALBUMIN normal Lot # [id number] Exp date 12/2018 Clarity clear Color yellow ALB 150 CRE 50 A:C (IN HOUSE) 300 Control + Control Lot # Exp date PROCEDURES Procedure Date Ordered Result Body Site COMPLETE CBC W/AUTO DIFF WBC Apr 18, 2018 GLYCATED HEMOGLOBIN TEST Apr 18, 2018 VENIPUNCT, ROUTINE* Apr 18, 2018 MICROALBUMIN, SEMIQUANT Apr 18, 2018 LIPID PANEL Apr 18, 2018 COMPREHEN METABOLIC PANEL Apr 18, 2018 ASSAY OF FREE THYROXINE Apr 18, 2018 ASSAY THYROID STIM HORMONE Apr 18, 2018 INSTRUCTIONS MEDICATIONS ADMINISTERED No Known Medications MEDICAL (GENERAL) HISTORY Type Description Date Medical History diabetes Medical History Nerve damage Surgical History section X 3 Surgical History cyst removal Surgical History cholecystectomy Surgical History Mass removed from Lt breast Surgical History Laser eye surgery balateral Hospitalization History child Hospitalization History surgeries
--- OUTSIDE RECORDS SUMMARY | 2018-07-30 09:04 | XMS REPORT ---
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 use of insulin Z79.4 Active 172953732 Problem Neuropathy G62.9 Active 072155796 Problem Vitreous hemorrhage, unspecified eye H43.10 Active 84395591 Problem Type 2 diabetes mellitus with unspecified diabetic retinopathy with macular edema E11.311 Active 7509203554768 Problem Iron deficiency anemia, unspecified iron deficiency anemia type D50.9 Active 12495874 Problem 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 75966145 ALLERGIES No Known Allergies ENCOUNTERS Encounter Location Date Diagnosis [facility] [address] [facility] [id number] [place] [address] Dec, [facility] [address] [id number] [place] [address] Dec [facility] [address] [id number] [place] [address] Dec [facility] [address] [id number] [place] [address] Dec [facility] [address] [id number] [place] [address] November Type 2 diabetes mellitus with other circulatory complications E11.59 ; medical terminologist current use of insulin Z79.4 ; Iron deficiency anemia, unspecified iron deficiency anemia type D50.9 and BMI 40.0-44.9, adult Z68.41 [facility] [address] [id number] [place] [address] November [facility] [address] [facility] [id number] [place] [address] November, [facility] [address] [id number] [place] [address] November Type 2 diabetes mellitus with other circulatory complications E11.59 ; halfway current use of insulin Z79.4 and Hx of retinal hemorrhage Z86.69 [facility] [address] [id number] [place] [address] November Type 2 diabetes mellitus with other circulatory complications E11.59 ; halfway current use of insulin Z79.4 ; Iron deficiency anemia, unspecified iron deficiency anemia type D50.9 ; Neuropathy G62.9 ; Drug-induced constipation K59.03 ; Peripheral edema R60.9 ; Hx of retinal hemorrhage Z86.69 and BMI 40.0-44.9, adult Z68.41 IMMUNIZATIONS No Known Immunizations SOCIAL HISTORY Never Assessed REASON FOR VISIT Establish Care. , Pt needs needles or pens for insulin. OSEAS Nichole PLAN OF CARE Activity Details Follow Up 2 Weeks Reason:diabetes VITAL SIGNS Height 62 in 2017-11-29 Weight 241.7 lbs 2017-11-29 Temperature 98.1 degrees Fahrenheit 2017-11-29 Heart Rate 82 bpm 2017-11-29 Respiratory Rate 18 2017-11-29 Oximetry 99 % 2017-11-29 BMI 44.20 kg/m2 2017-11-29 Blood pressure systolic 116 mmHg 2017-11-29 Blood pressure diastolic 76 mmHg 2017-11-29 MEDICATIONS Medication Instructions Dosage Frequency Start Date End Date Duration Status Humulin 70/30 (70-30) 100 UNIT/ML Subcutaneous 2 times a day 20 units 12h Active Potassimin 20 meq Orally Once a day 1 tablet 24h Active Docusate Sodium 100 MG Orally 2 times a day 1 capsule as needed 12h Active Nabumetone 750 MG Orally 2 times a day 1 tablet 12h Active Fiber-Lax 625 MG Orally Once a day 1 tablet as needed 24h Active APAP 325 MG Orally 2 times a day 1 tablet as needed 12h Active Furosemide 40 MG Orally 2 times a day 1 tablet 12h Active Aspirin Adult Low Dose 81 MG Orally Once a day 1 tablet 24h Active Ferrous Sulfate 325 (65 Fe) MG Orally 2 times a day 1 tablet 12h Active RESULTS Name Result Date Reference Range A1C (IN HOUSE) 2017-11-29 A1C IN HOUSE 7.5 4.3 - 5.6 % Previous A1c none Lot 0850 Exp date PROCEDURES Procedure Date Ordered Result Body Site GLYCATED HEMOGLOBIN TEST November 29, 2017 INSTRUCTIONS MEDICATIONS ADMINISTERED No Known Medications MEDICAL (GENERAL) HISTORY Type Description Date Medical History diabetes Medical History Nerve damage Surgical History section X 3 Surgical History cyst removal Surgical History cholecystectomy Surgical History Mass removed from Lt breast Surgical History Laser eye surgery balateral Hospitalization History child Hospitalization History surgeries
--- OUTSIDE RECORDS SUMMARY | 2018-07-30 09:04 | XMS REPORT ---
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 Z79.4 Active 343158520 Problem Neuropathy G62.9 Active 492330857 Problem Vitreous hemorrhage, unspecified eye H43.10 Active 08348509 Problem Type 2 diabetes mellitus with unspecified diabetic retinopathy with macular edema E11.311 Active 0503177025533 Problem Iron deficiency anemia, unspecified iron deficiency anemia type D50.9 Active 97943220 Problem 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 21859936 ALLERGIES No Known Allergies ENCOUNTERS Encounter Location Date Diagnosis [facility] [address] [facility] [id number] [place] [address] Dec, [facility] [address] [id number] [place] [address] Dec [facility] [address] [id number] [place] [address] Dec [facility] [address] [id number] [place] [address] Dec [facility] [address] [id number] [place] [address] November Type 2 diabetes mellitus with other circulatory complications E11.59 ; editor [place] current use of insulin Z79.4 ; Iron deficiency anemia, unspecified iron deficiency anemia type D50.9 and BMI 40.0-44.9, adult Z68.41 [facility] [address] [id number] [place] [address] November [facility] [address] [facility] [id number] [place] [address] November, [facility] [place] [address] [id number] [place] [address] November Type 2 diabetes mellitus with other circulatory complications E11.59 ; [facility] current use of insulin Z79.4 and Hx of retinal hemorrhage Z86.69 [facility] [address] [id number] [place] [address] November Type 2 diabetes mellitus with other circulatory complications E11.59 ; [facility] current use of insulin Z79.4 ; Iron deficiency anemia, unspecified iron deficiency anemia type D50.9 ; Neuropathy G62.9 ; Drug-induced constipation K59.03 ; Peripheral edema R60.9 ; Hx of retinal hemorrhage Z86.69 and BMI 40.0-44.9, adult Z68.41 IMMUNIZATIONS No Known Immunizations SOCIAL HISTORY Never Assessed REASON FOR VISIT Diabetes follow-up, Pt fasting B/S range between 150-210., Pt Rt eye is bleeding started Tuesday. OSEAS Nichole PLAN OF CARE Activity Details Follow Up prn, after eye exam Reason: VITAL SIGNS Height 62 in 2017-12-13 Weight 134.4 lbs 2017-12-13 Temperature 98.4 degrees Fahrenheit 2017-12-13 Heart Rate 80 bpm 2017-12-13 Respiratory Rate 18 2017-12-13 Oximetry 98 % 2017-12-13 BMI 24.58 kg/m2 2017-12-13 Blood pressure systolic 118 mmHg 2017-12-13 Blood pressure diastolic 84 mmHg 2017-12-13 MEDICATIONS Medication Instructions Dosage Frequency Start Date End Date Duration Status Ferrous Sulfate 325 (65 Fe) MG Orally 2 times a day 1 tablet 12h Active Humulin 70/30 (70-30) 100 UNIT/ML Subcutaneous 2 times a day 20 units 12h Active Aspirin Adult Low Dose 81 MG Orally Once a day 1 tablet 24h Active Docusate Sodium 100 MG Orally 2 times a day 1 capsule as needed 12h Active APAP 325 MG Orally 2 times a day 1 tablet as needed 12h Active Furosemide 40 MG Orally 2 times a day 1 tablet 12h Active Potassimin 20 meq Orally Once a day 1 tablet 24h Active Fiber-Lax 625 MG Orally Once a day 1 tablet as needed 24h Active Nabumetone 750 MG Orally 2 times a day 1 tablet 12h Active RESULTS No Results PROCEDURES No Known [...]
--- OUTSIDE RECORDS SUMMARY | 2018-07-30 09:04 | XMS REPORT ---
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 [address] [facility] [id number] [place] [address] Dec, [facility] [address] [id number] [place] [address] Dec [facility] [address] [id number] [place] [address] Dec [facility] [address] [id number] [place] [address] Dec [facility] [address] [id number] [place] [address] November Type 2 diabetes mellitus with other circulatory complications E11.59 ; long term care pharmacist current use of insulin Z79.4 ; Iron deficiency anemia, unspecified iron deficiency anemia type D50.9 and BMI 40.0-44.9, adult Z68.41 [facility] [address] [id number] [place] [address] [facility] [address] [facility] [id number] [place] [address] November, [facility] [address] [id number] [place] [address] November Type 2 diabetes mellitus with other circulatory complications E11.59 ; [facility] current use of insulin Z79.4 and Hx of retinal hemorrhage Z86.69 [facility] [address] [id number] [place] [address] November Type 2 diabetes mellitus with other circulatory complications E11.59 ; [facility] current use of insulin Z79.4 ; Iron deficiency anemia, unspecified iron deficiency anemia type D50.9 ; Neuropathy G62.9 ; Drug-induced constipation K59.03 ; Peripheral edema R60.9 ; Hx of retinal hemorrhage Z86.69 and BMI 40.0-44.9, adult Z68.41 IMMUNIZATIONS No Known Immunizations SOCIAL HISTORY Never Assessed REASON FOR VISIT Diabetes follow up. OSEAS Nichole PLAN OF CARE Activity Details Follow Up 2 Months Reason:Diabetes f/u VITAL SIGNS Height 62 in 2017-12-21 Weight 241.2 lbs 2017-12-21 Temperature 99.3 degrees Fahrenheit 2017-12-21 Heart Rate 78 bpm 2017-12-21 Respiratory Rate 18 2017-12-21 Oximetry 98 % 2017-12-21 BMI 44.11 kg/m2 2017-12-21 Blood pressure systolic 114 mmHg 2017-12-21 Blood pressure diastolic 82 mmHg 2017-12-21 MEDICATIONS Medication Instructions Dosage Frequency Start Date End Date Duration Status Furosemide 40 MG Orally 2 times a day 1 tablet 12h Active Potassimin 20 meq Orally Once a day 1 tablet 24h Active Lantus SoloStar 100 UNIT/ML Subcutaneous daily at bedtime 15 units November 90 days Active Nabumetone 750 MG Orally 2 times a day 1 tablet 12h Active Ferrous Sulfate 325 (65 Fe) MG Orally 2 times a day 1 tablet 12h Active Aspirin Adult Low Dose 81 MG Orally Once a day 1 tablet 24h Active NovoLog Flexpen 100 UNIT/ML Subcutaneous 3 times a day 5 units 8h November, 90 days Active Fiber-Lax 625 MG Orally Once a day 1 tablet as needed 24h Active APAP 325 MG Orally 2 times a day 1 tablet as needed 12h Active Docusate Sodium 100 MG Orally 2 times a day 1 capsule as needed 12h Active RESULTS No Results PROCEDURES No [...]
[2018-07-30] MEDS ORDERED: NS IV 1000 ML 1,000 ML IV SCH (09:07)
--- NOTE | 2018-07-30 09:13 | ED GI ---
General Stated Complaint: POSSIBLE DKA Source of Information: Patient Exam Limitations: No Limitations History of Present Illness Date Seen by Provider: Jul 30, 2018 Time Seen by Provider: 08:58 Initial Comments Patient presents to ER by private conveyance with chief complaint that she went to work today at [employer] and her blood sugar was reading high and she was told by her nurse to come get checked out. She's been a diabetic for 14 years and for the past couple days as been reading anywhere from 500 to high. She's been taking her insulin she is only missed one dose last couple days. She takes 20 units of Levemir daily and a sliding scale of NovoLog. She follows with [facility]. She's been having some nausea headache feeling unwell but no fevers or chills. No diarrhea or vomiting. She's not having any belly pain. She states her tubes are tied. She's never been in diabetic ketoacidosis but she is worried that she could be. She's had have multiple laser treatments for her retina secondary to her diabetes. Allergies and Home Medications Allergies Coded Allergies: No Known Drug Allergies (Unverified , 07/30/18) Patient Home Medication List Home Medication List Reviewed: Yes Review of Systems Review of Systems Constitutional: No chills, No fever, No malaise EENTM: No Blurred Vision, No Double Vision, No Eye Pain, No Eye Tearing, No Ear Drainage, No Ear Pain Respiratory: Denies Cough, Denies Orthopnea, Denies Shortness of Air Cardiovascular: Denies Chest Pain, Denies Edema Gastrointestinal: Denies Abdomen Distended, Denies Abdominal Pain, Denies Constipated, Denies Diarrhea; Nausea; Denies Poor Fluid Intake, Denies Vomiting Genitourinary: Denies Burning, Denies Discharge Musculoskeletal: No back pain, No joint pain Skin: No pruritus, No rash Psychiatric/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: Headache; Denies Numbness, Denies Paresthesia Past Eilhxje-Zqmwcy-Uraueq Hx Patient Social History Alcohol Use: Denies Use Recreational Drug Use: No Smoking Status: Never a Smoker Recent Foreign Travel: No Contact w/Someone Who Travel: No Physical Exam Vital Signs Vital Signs - First Documented 07/30/18 09:00 Temp 97.2 Pulse 81 Resp 18 B/P (MAP) 139/97 (111) Pulse Ox 100 O2 Delivery Room Air Capillary Refill : Height/Weight/BMI Height: '" Weight: lbs. oz. kg; BMI Method: General Appearance: mild distress, obese HEENT: PERRL/EOMI, normal ENT inspection, TMs normal; No pharynx normal ( oropharynx is mildly dry) Respiratory: lungs clear, normal breath sounds, no respiratory distress, no accessory muscle use Cardiovascular: normal peripheral pulses, regular rate, rhythm, no edema Gastrointestinal: normal bowel sounds, non tender, soft Neurologic/Psychiatric: alert, normal mood/affect, oriented x 3 Skin: normal color, warm/dry Progress/Results/Core Measures Results/Orders Lab Results Laboratory Tests Test 07/30/18 09:11 07/30/18 09:16 Range/Units White Blood Count 11.4 H 4.3-11.0 10^3/uL Red Blood Count 4.29 L 4.35-5.85 10^6/uL Hemoglobin 9.4 L 11.5-16.0 G/DL Hematocrit 30 L 35-52 % Mean Corpuscular Volume 69 L 80-99 FL Mean Corpuscular Hemoglobin 22 L 25-34 PG Mean Corpuscular Hemoglobin Concent 32 32-36 G/DL Red Cell Distribution Width 15.6 H 10.0-14.5 % Platelet Count 485 H 130-400 10^3/uL Mean Platelet Volume 9.6 7.4-10.4 FL Neutrophils (%) (Auto) 70 42-75 % Lymphocytes (%) (Auto) 20 12-44 % Monocytes (%) (Auto) 7 0-12 % Eosinophils (%) (Auto) 3 0-10 % Basophils (%) (Auto) 0 0-10 % Neutrophils # (Auto) 8.0 H 1.8-7.8 X 10^3 Lymphocytes # (Auto) 2.2 1.0-4.0 X 10^3 Monocytes # (Auto) 0.8 0.0-1.0 X 10^3 Eosinophils # (Auto) 0.3 0.0-0.3 10^3/uL Basophils # (Auto) 0.0 0.0-0.1 10^3/uL Sodium Level 132 L 135-145 MMOL/L Potassium Level 5.5 H 3.6-5.0 MMOL/L Chloride Level 100 98-107 MMOL/L Carbon Dioxide Level 24 21-32 MMOL/L Anion Gap 8 5-14 MMOL/L Blood Urea Nitrogen 16 7-18 MG/DL Creatinine 1.14 0.60-1.30 MG/DL Estimat Glomerular Filtration Rate 53 BUN/Creatinine Ratio 14 Glucose Level 482 *H 70-105 MG/DL Calcium Level 9.0 8.5-10.1 MG/DL Corrected Calcium 9.6 8.5-10.1 MG/DL Magnesium Level 1.8 1.8-2.4 MG/DL Total Bilirubin 0.2 0.1-1.0 MG/DL Aspartate Amino Transf (AST/SGOT) 16 5-34 U/L Alanine Aminotransferase (ALT/SGPT) 13 0-55 U/L Alkaline Phosphatase 99 40-136 U/L Total Protein 6.3 L 6.4-8.2 GM/DL Albumin 3.2 3.2-4.5 GM/DL Urine Color YELLOW Urine Clarity VERY CLOUDY H Urine pH 5 5-9 Urine Specific [place] 1.015 L 1.016-1.022 Urine Protein 4+ NEGATIVE Urine Glucose (UA) 4+ H NEGATIVE Urine Ketones NEGATIVE NEGATIVE Urine Nitrite NEGATIVE NEGATIVE Urine Bilirubin NEGATIVE NEGATIVE Urine Urobilinogen NORMAL NORMAL MG/DL Urine Leukocyte Esterase 1+ H NEGATIVE Urine RBC (Auto) 2+ H NEGATIVE Urine RBC RARE /HPF Urine WBC 10-25 H /HPF Urine Squamous Epithelial Cells 10-25 H /HPF Urine Crystals NONE /LPF Urine Bacteria LARGE H /HPF Urine Casts NONE /LPF Urine Mucus MODERATE H /LPF Urine Culture Indicated YES My Orders Orders - BERYL COLON Cbc With Automated Diff (07/30/18 09:07) Comprehensive Metabolic Panel (07/30/18 09:07) Magnesium (07/30/18 09:07) Ua Culture If Indicated (07/30/18 09:07) Saline Lock/Iv-Start (07/30/18 09:07) Ns Iv 1000 Ml (Sodium Chloride 0.9%) (07/30/18 09:07) Urine Bedside (07/30/18 09:07) Ketorolac Injection (Toradol Injection) (07/30/18 09:15) Ondansetron Injection (Zofran Injectio (07/30/18 09:15) Urine Culture (07/30/18 09:16) Insulin Aspart (Novolog) (Novolog (Charg (1/6/19 10:15) Accucheck Stat ONCE (07/30/18 10:14) Medications Given in ED Current Medications Medications Dose Ordered Sig/Christopher Route Start Time Stop Time Status Last Admin Dose Admin Insulin Aspart 25 unit ONCE ONCE SC 07/30/18 10:15 07/30/18 10:16 DC 07/30/18 10:15 25 UNIT Ketorolac Tromethamine 30 mg ONCE ONCE IVP 07/30/18 09:15 07/30/18 09:16 DC 07/30/18 09:23 30 MG Ondansetron HCl 4 mg ONCE ONCE IVP 07/30/18 09:15 07/30/18 09:16 DC 07/30/18 09:22 4 MG Vital Signs/I&O 07/30/18 09:00 Temp 97.2 Pulse 81 Resp 18 B/P (MAP) 139/97 (111) Pulse Ox 100 O2 Delivery Room Air Progress Progress Note #1: Time: 09:13 Progress Note Hyperglycemia with her without HHS/DKA. We'll start with a liter of saline and some blood and urine. Progress Note #2: Time: 10:42 Progress Note Patient's blood sugar is down from 482-365 with just 25 units of NovoLog. Plan is to send her home with follow-up in one to 2 days with primary care. We'll increase her Levemir from 20 up to 30 units at night and her NovoLog at 10 more units to her sliding scale baseline. 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 Decision time for Depature: 10:43 Referrals: [facility] (PCP/Family) Primary Care Physician Patient Instructions: Diabetes Type 2 (DC) Add. Discharge Instructions: Try and eat a reasonable diabetic diet to avoid sugars and increase your Levemir 30 units at night. Increase your NovoLog by 10 units in addition to your sliding scale. Follow-up in the next 1-2 days with primary care. Work/School Note: Work Release Form Date Seen in the Emergency Department: Jul 30, 2018 Return to Work: Jul 30, 2018 Restrictions: No Restrictions Copy Copies To 1: DIANA VERNON TITUS J Jul 30, 2018 09:13
[2018-07-30] MEDS ORDERED: ONDANSETRON 4 MG/2 ML (SDV) Z0FRAN IVP ONE (09:15)
[2018-07-30] MEDS ORDERED: KETOROLAC 30 MG/ML VIAL IVP ONE (09:15)
[2018-07-30 09:27] LABS: BILIRUBIN,URINE NEGATIVE (NEGATIVE); CLARITY,URINE VERY CLOUDY; COLOR,URINE YELLOW; GLUCOSE, URINE (UA) 4+ (NEGATIVE); KETONES,URINE NEGATIVE (NEGATIVE); LEUKOCYTE ESTERASE ,URINE 1+ (NEGATIVE); NITRITE,URINE NEGATIVE (NEGATIVE); PH,URINE 5 (5-9); PROTEIN,URINE 4+ (NEGATIVE); UROBILINOGEN,URINE NORMAL (NORMAL)
[2018-07-30 09:28] LABS: BASOPHILS % (AUTO) 0 % (0-10); EOSINOPHILS # (AUTO) 0.3 10^3/uL (0.0-0.3); EOSINOPHILS % (AUTO) 3 % (0-10); HEMATOCRIT 30 % (35-52); HEMOGLOBIN 9.4 G/DL (11.5-16.0); LYMPHOCYTES # (AUTO) 2.2 X 10^3 (1.0-4.0); LYMPHOCYTES % (AUTO) 20 % (12-44); MEAN CORPUSCULAR HEMOGLOBIN 22 PG (25-34); MEAN CORPUSCULAR HGB CONC 32 G/DL (32-36); MEAN CORPUSCULAR VOLUME 69 FL (80-99); MEAN PLATELET VOLUME 9.6 FL (7.4-10.4); MONOCYTES # (AUTO) 0.8 X 10^3 (0.0-1.0); MONOCYTES % (AUTO) 7 % (0-12); NEUTROPHILS % (AUTO) 70 % (42-75); PLATELET COUNT 485 10^3/uL (130-400); RED BLOOD COUNT 4.29 10^6/uL (4.35-5.85); RED CELL DISTRIBUTION WIDTH 15.6 % (10.0-14.5); WHITE BLOOD COUNT 11.4 10^3/uL (4.3-11.0)
[2018-07-30 09:34] LABS: BACTERIA,URINE LARGE /HPF; RBC,URINE RARE /HPF
[2018-07-30] MEDS ORDERED: NOVLOG (09:34)
[2018-07-30 09:44] LABS: ALBUMIN 3.2 GM/DL (3.2-4.5); BILIRUBIN,TOTAL 0.2 MG/DL (0.1-1.0); CREATININE SERUM 1.14 MG/DL (0.60-1.30); MAGNESIUM 1.8 MG/DL (1.8-2.4); POTASSIUM 5.5 MMOL/L (3.6-5.0); TOTAL PROTEIN 6.3 GM/DL (6.4-8.2)
--- NOTE | 2018-07-30 09:59 | NUR ---
TO ROOM FLUIDS CON'T TO INFUSE TEXTING ON PHONE REPORTS THAT HER HEADACHE IS GONE,
[2018-07-30] MEDS ORDERED: inSUlin ASPART (NovoLOG) 1 UNIT/0.01 ML (CHARGE PER UNIT) SC ONE (10:15)
[2018-07-30 11:12] VITALS: BP 121/88
== END 2018-07-30 11:12 | disposition home or self-care (01) ==
LOC: ER 08:59
DX: E11.65 Type 2 diabetes mellitus with hyperglycemia (principal); E11.319 Type 2 diabetes mellitus with unspecified diabetic retinopathy without macular edema; Z79.4 Long term (current) use of insulin; Z98.890 Other specified postprocedural states
CPT/HCPCS: 36415; 80053; 81000; 82962; 83735; 84703; 85025; 87077; 87088; 96361; 96372; 96374; 96375

== ENCOUNTER → 2019-10-15 | Outpatient (CLI) | payer OTHER ==
[~2019-10-15] VITALS: Ht 157.5 cm; Wt 96.8 kg
[~2019-10-15] MED LIST: LIDOCAINE 1% INJ 20 ML 20 ML VIAL INJ ONE; NOVLOG
--- NOTE | 2019-10-16 12:52 | Diagnostic Imaging Report ---
INDICATION: Right-sided thyroid nodule. Patient presents for ultrasound-guided biopsy. FINDINGS: Patient was brought to the procedure room, placed on table in the supine position. Ultrasound imaging of the right neck was performed to evaluate appropriate entry site. The right neck was then prepped and draped in the usual sterile fashion. A small amount of 1% lidocaine was utilized for local anesthesia. A total of five passes were made into the dominant hypoechoic solid mass involving the right thyroid lobe utilizing 25-gauge needles and fine-needle aspiration technique. Hemostasis was obtained using manual compression. Patient tolerated the procedure well and left the department in stable condition. IMPRESSION: Successful ultrasound-guided fine-needle aspiration of the dominant right thyroid nodule. Pathology results are currently pending. Dictated by: Dictated on workstation # [id number]
== END ==
LOC: RAD 14:12
PROVIDERS: ATTEND Otolaryngology Otolaryngology/Facial Plastic Surgery
DX: E04.1 Nontoxic single thyroid nodule (principal)
CPT/HCPCS: 88173; 88305

== ENCOUNTER 2019-11-13 11:07 | Outpatient (RCR) | payer OTHER ==
[2019-11-08 14:44] VITALS: BP 170/93
[~2019-11-13] VITALS: Ht 162.6 cm; Wt 96.8 kg
[2019-11-13 11:00] VITALS: BP 165/87
[~2019-11-13 11:07] MED LIST changes: +IRON SUCROSE 200 MG/10 ML (VENOFER) VIAL IV NR; +IRON SUCROSE 200 MG/10 ML (VENOFER) VIAL IV ONE; -LIDOCAINE 1% INJ 20 ML 20 ML VIAL INJ ONE
[2019-11-13] MEDS ORDERED: IRON SUCROSE 200 MG/10 ML (VENOFER) VIAL IV ONE (11:15)
== END 2019-11-13 11:47 | disposition home or self-care (01) ==
LOC: SDC 11:07
PROVIDERS: ATTEND Family Medicine
DX: D50.9 Iron deficiency anemia, unspecified (principal)
CPT/HCPCS: 96365

== ENCOUNTER → 2020-08-19 | Outpatient (CLI) | payer OTHER ==
[~2020-08-19] MED LIST changes: -IRON SUCROSE 200 MG/10 ML (VENOFER) VIAL IV NR; -IRON SUCROSE 200 MG/10 ML (VENOFER) VIAL IV ONE
--- NOTE | 2020-08-19 15:57 | Diagnostic Imaging Report ---
PROCEDURE: US Thyroid. TECHNIQUE: Multiple real-time grayscale images were obtained of the thyroid in various projections. INDICATION: Thyroid nodules. COMPARISON: Correlation is made with outside ultrasound from 08/21/2019. FINDINGS: The right lobe of thyroid measures 6.0 x 2.1 x 3.0 cm and the left lobe measures 6.5 x 1.8 x 2.6 cm. Isthmus is 6 mm in thickness. There is a dominant solid nodule in lower pole of right lobe measuring 3.4 x 2.0 x 3.1 cm. This compares with prior measurement of 1.7 x 1.4 x 1.4 cm, although there may be some variation in size due to measurement technique. Mixed solid and cystic nodule laterally in the midportion of right lobe measures approximately 7 mm x 5 mm, similar to prior exam. The left lobe is markedly heterogeneous. A nodule in the mid left lobe is approximately 7 mm in size, stable. IMPRESSION: Bilateral thyroid nodules. Dominant solid mass in right lobe is again noted. This may be increased in size when compared with prior study from 08/21/2019. This has been previously sampled. Dictated by: Dictated on workstation # [id number]
== END ==
LOC: RAD 14:21
PROVIDERS: ATTEND Otolaryngology Otolaryngology/Facial Plastic Surgery
DX: E04.2 Nontoxic multinodular goiter (principal)
CPT/HCPCS: 76536

== ENCOUNTER → 2020-09-17 | Outpatient (CLI) | payer OTHER ==
--- NOTE | 2020-09-17 13:27 | Diagnostic Imaging Report ---
PROCEDURE: Pelvic comp/transvaginal sonogram. TECHNIQUE: Complete transabdominal and transvaginal pelvic ultrasound was performed. In addition, limited pelvic Doppler was performed. INDICATION: Abnormal uterine bleeding. FINDINGS: Uterus measures 10.8 x 5.6 x 7.6 cm. No discrete myometrial mass is detected. Endometrium is approximately 12 mm in thickness. Left ovary cannot be visualized. Right ovary measures 3.5 x 2.1 x 2.2 cm. There appears to be a hypoechoic mass in the right ovary approximately 19 mm in size, likely a cyst. There is normal vascularity to the right ovary. No fluid is seen. IMPRESSION: 19 mm probable right ovarian cyst. Left ovary cannot be visualized. The study is otherwise unremarkable. Dictated by: Dictated on workstation # [id number]
== END ==
LOC: RAD 10:16
PROVIDERS: ATTEND Obstetrics & Gynecology
DX: N93.8 Other specified abnormal uterine and vaginal bleeding (principal)
CPT/HCPCS: 76830; 76856

== ENCOUNTER 2020-09-30 05:57 | Outpatient (RCR) | payer OTHER ==
[~2020-09-30] VITALS: Ht 157.5 cm; Wt 110.9 kg
[2020-09-30] MEDS ORDERED: RT-ALBUINH IH (12:37)
[2020-09-30] MEDS ORDERED: PANT20TA18 PO (12:37)
[2020-09-30] MEDS ORDERED: CANA300T PO (12:37)
[2020-09-30] MEDS ORDERED: ATOR10TA66 PO (12:37)
[2020-09-30] MEDS ORDERED: FURO40TA4 PO (12:37)
[2020-09-30] MEDS ORDERED: LINA145C PO (12:37)
[2020-09-30] MEDS ORDERED: INSU100I29 SQ (12:37)
[2020-09-30] MEDS ORDERED: DICL50TA6 PO (12:37)
[2020-09-30] MEDS ORDERED: MEDR10TA9 PO (12:37)
[2020-09-30] MEDS ORDERED: SUCR1TAB PO (12:37)
[2020-09-30] MEDS ORDERED: POTA10TA36 PO (12:37)
[2020-09-30] MEDS ORDERED: INSU100I14 SQ (12:37)
[2020-09-30] MEDS ORDERED: LIRA0.6P SQ (12:37)
== END 2020-09-30 13:00 | disposition home or self-care (01) ==
LOC: PREOP 05:57
PROVIDERS: ATTEND Obstetrics & Gynecology
DX: Z01.818 Encounter for other preprocedural examination (principal)

== ENCOUNTER 2020-10-02 14:41 | Outpatient (RCR) | payer OTHER ==
[2020-08-29 09:38] LABS: BASOPHILS % (AUTO) 0 % (0-10); EOSINOPHILS # (AUTO) 0.2 10^3/uL (0.0-0.3); EOSINOPHILS % (AUTO) 2 % (0-10); HEMATOCRIT 26 % (35-52); HEMOGLOBIN 7.6 g/dL (11.5-16.0); LYMPHOCYTES # (AUTO) 1.9 10^3/uL (1.0-4.0); LYMPHOCYTES % (AUTO) 21 % (12-44); MEAN CORPUSCULAR HEMOGLOBIN 20 pg (25-34); MEAN CORPUSCULAR HGB CONC 29 g/dL (32-36); MEAN CORPUSCULAR VOLUME 70 fL (80-99); MEAN PLATELET VOLUME 9.3 fL (9.0-12.2); MONOCYTES # (AUTO) 0.5 10^3/uL (0.0-1.0); MONOCYTES % (AUTO) 6 % (0-12); NEUTROPHILS # (AUTO) 6.7 10^3/uL (1.8-7.8); NEUTROPHILS % (AUTO) 71 % (42-75); PLATELET COUNT 433 10^3/uL (130-400); WHITE BLOOD COUNT 9.5 10^3/uL (4.3-11.0)
[2020-08-29 09:56] LABS: ALANINE AMINOTRANSFERASE 10 U/L (0-55); ALBUMIN 2.1 GM/DL (3.2-4.5); ALKALINE PHOSPHATASE 108 U/L (40-136); BILIRUBIN,TOTAL < 0.1 MG/DL (0.1-1.0); BUN/CREATININE RATIO 11; CALCIUM 8.2 MG/DL (8.5-10.1); CARBON DIOXIDE 20 MMOL/L (21-32); CHLORIDE 105 MMOL/L (98-107); CREATININE SERUM 1.58 MG/DL (0.60-1.30); GFR ESTIMATED 44; GLUCOSE 271 MG/DL (70-105); POTASSIUM 3.5 MMOL/L (3.6-5.0); SODIUM 136 MMOL/L (135-145); TOTAL PROTEIN 5.2 GM/DL (6.4-8.2)
[~2020-10-02 14:41] MED LIST changes: +ATOR10TA66 PO; +CANA300T PO; +DICL50TA6 PO; +FERRIC CARBOXYMALTOSE (CANCER) 750 MG in NS (IVPB) CANCER CENTER 250 ML IV SCH; +FURO40TA4 PO; +INSU100I14 SQ; +INSU100I29 SQ; +LINA145C PO; +LIRA0.6P SQ; +MEDR10TA9 PO; +PANT20TA18 PO; +POTA10TA36 PO; +RT-ALBUINH IH; +SUCR1TAB PO
[2020-10-02 14:55] LABS: BASOPHILS # (AUTO) 0.1 10^3/uL (0.0-0.1); BASOPHILS % (AUTO) 1 % (0-10); EOSINOPHILS # (AUTO) 0.2 10^3/uL (0.0-0.3); EOSINOPHILS % (AUTO) 3 % (0-10); HEMATOCRIT 36 % (35-52); HEMOGLOBIN 11.4 g/dL (11.5-16.0); LYMPHOCYTES # (AUTO) 2.3 10^3/uL (1.0-4.0); LYMPHOCYTES % (AUTO) 27 % (12-44); MEAN CORPUSCULAR HEMOGLOBIN 24 pg (25-34); MEAN CORPUSCULAR HGB CONC 32 g/dL (32-36); MEAN CORPUSCULAR VOLUME 75 fL (80-99); MEAN PLATELET VOLUME 9.9 fL (9.0-12.2); MONOCYTES # (AUTO) 0.6 10^3/uL (0.0-1.0); MONOCYTES % (AUTO) 7 % (0-12); NEUTROPHILS # (AUTO) 5.3 10^3/uL (1.8-7.8); NEUTROPHILS % (AUTO) 62 % (42-75); PLATELET COUNT 358 10^3/uL (130-400); WHITE BLOOD COUNT 8.6 10^3/uL (4.3-11.0)
[2020-10-02 15:22] LABS: ALBUMIN 2.4 GM/DL (3.2-4.5); BILIRUBIN,TOTAL 0.1 MG/DL (0.1-1.0); CALCIUM 8.5 MG/DL (8.5-10.1); CREATININE SERUM 1.97 MG/DL (0.60-1.30); POTASSIUM 3.8 MMOL/L (3.6-5.0); TOTAL PROTEIN 5.8 GM/DL (6.4-8.2)
[2020-10-03] MEDS ORDERED: IBUP-844 PO (14:51)
[2020-10-03] MEDS ORDERED: ACET-93 PO (14:51)
[2020-10-03] MEDS ORDERED: OXC5T PO (14:51)
== END 2020-11-27 | disposition home or self-care (01) ==
LOC: ONC 14:41
PROVIDERS: ATTEND Internal Medicine Hematology & Oncology
DX: Z01.411 Encounter for gynecological examination (general) (routine) with abnormal findings (principal); D50.9 Iron deficiency anemia, unspecified; N93.9 Abnormal uterine and vaginal bleeding, unspecified
CPT/HCPCS: 80053; 82728; 83540; 85025; G0463; 96365; 99213; 99214

== ENCOUNTER 2020-10-03 11:24 | Day surgery (SDC) | payer OTHER ==
[2020-10-03] VITALS (9 sets, daily range): BP systolic 108–149; BP diastolic 70–92
[~2020-10-03] VITALS: Ht 157 cm; Wt 110.9 kg
[~2020-10-03 11:24] MED LIST changes: -FERRIC CARBOXYMALTOSE (CANCER) 750 MG in NS (IVPB) CANCER CENTER 250 ML IV SCH
[2020-10-03] MEDS ORDERED: MIDAZOLAM 2 MG/2 ML (VERSED) VIAL ONE (12:07)
[2020-10-03] MEDS: LACTATED RINGERS 1,000 ML IV PRN ×2 (12:07→14:50)
[2020-10-03] MEDS ORDERED: fentaNYL INJ 100 MCG/2 ML AMP ONE (12:07)
[2020-10-03] MEDS ORDERED: ceFAZolin INJECTION 1,000 MG in WATER (STERILE) FOR INJECTION 10 ML IV ONE (12:15)
[2020-10-03 12:16] LABS: BASOPHILS % (AUTO) 1 % (0-10); EOSINOPHILS # (AUTO) 0.2 10^3/uL (0.0-0.3); EOSINOPHILS % (AUTO) 2 % (0-10); HEMATOCRIT 34 % (35-52); HEMOGLOBIN 11.1 g/dL (11.5-16.0); LYMPHOCYTES # (AUTO) 1.9 10^3/uL (1.0-4.0); LYMPHOCYTES % (AUTO) 24 % (12-44); MEAN CORPUSCULAR HEMOGLOBIN 25 pg (25-34); MEAN CORPUSCULAR HGB CONC 32 g/dL (32-36); MEAN CORPUSCULAR VOLUME 76 fL (80-99); MEAN PLATELET VOLUME 9.7 fL (9.0-12.2); MONOCYTES # (AUTO) 0.6 10^3/uL (0.0-1.0); MONOCYTES % (AUTO) 7 % (0-12); NEUTROPHILS # (AUTO) 5.2 10^3/uL (1.8-7.8); NEUTROPHILS % (AUTO) 66 % (42-75); PLATELET COUNT 293 10^3/uL (130-400)
[2020-10-03] MEDS ORDERED: ceFAZolin INJECTION 1,000 MG ONE (12:25)
[2020-10-03] MEDS ORDERED: WATER (STERILE) FOR INJECTION 10 ML ONE (12:25)
--- NOTE | 2020-10-03 13:42 | Progress Note-Pre Operative ---
Pre-Operative Progress Note H&P Reviewed The H&P was reviewed, patient examined and no changes noted. Date Seen by Provider: Oct 03, 2020 Time Seen by Provider: 13:00 Date H&P Reviewed: Oct 03, 2020 Time H&P Reviewed: 13:00 Pre-Operative Diagnosis: menorrhagia, endometrial polyp, anemia GAYATHRI SPANN DO Oct 03, 2020 13:42
[2020-10-03] MEDS ORDERED: LIDOCAINE PF 2% 5 ML (XYLOCAINE) VIAL ONE (14:23)
[2020-10-03] MEDS ORDERED: ONDANSETRON 4 MG/2 ML (SDV) Z0FRAN ONE (14:23)
[2020-10-03] MEDS ORDERED: proPOfol 200 MG/20 ML (DIPRIVAN) VIAL IV ONE (14:23)
[2020-10-03] MEDS ORDERED: SUCCINYLCHOLINE INJ 100 MG/5 ML SYR/VIAL ONE (14:23)
[2020-10-03] MEDS ORDERED: SEVOFLURANE (ULTANE) 15 ML INHAL SOLN ONE (14:23)
[2020-10-03] MEDS ORDERED: KETOROLAC 30 MG/ML VIAL ONE (14:23)
--- NOTE | 2020-10-03 14:34 | Operative Report ---
Operative Report Date of Procedure/Surgery Oct 03, 2020 Surgeon (s) GAYATHRI SPANN DO Concrete Floater (s): NA Post-Operative Diagnosis menorrhagia, anemia endometrial polyp submucosal fibroid Procedure Performed hysteroscopy, dilation and curettage, Katya endometrial ablation Description of Procedure Anesthesia Type: General Estimated blood loss (mL): minimal Specimen(s) collected/removed endometrial curettings Description of the Procedure Patient has had a history of anemia requiring iron infusions and abnormal uterine bleeding. She was passing very large clots. This improved somewhat with progesterone but it did not stop completely and she has started bleeding heavily again the last few days. Her most recent hemoglobin prior to the last infusion was 7.6. Pelvic US showed endometrium to be 12 mm and no obvious myometrial masses. Endometrial biopsy was benign with probable endometrial polyp. We opted for hysteroscopy dilation and curettage with endometrial ablation, to stop or at least slow, bleeding until hemoglobin was at a more tolerable level. She also did not want to miss much work She states she is still bleeding heavily, however, her hemoglobin at the oncology office yesterday was 11.4 We discussed the possibility of not doing the procedure today and rescheduling a hysterectomy and she said, "let's just do it. Maybe I won't need a hysterectomy". With informed consent, the patient was taken to the operating room where general anesthesia was found to be adequate. She was prepped and draped in the usual sterile fashion. The bladder was drained of clear, yellow urine (400 ml). A speculum was placed in the vagina and the cervix was grasped with a tenaculum and then the cervix was gently dilated with Atul dilators. I then [id number] the hysteroscope and revealed the above mentioned findings. Interestingly, there was not any blood clots in the uterine cavity. I removed the scope and then did a gentle sharp curette removing a moderate amount of endometrial tissue, including what appeared to be the polyp. I followed up with a scope revealing a full curette was done. I then inserted the Katya device under the described typical technique. And advanced to the fundus. The compliance test was found to be adequate and the device was then enabled. The ablation started and [id number] the requisite 120 seconds. The device was then removed and a follow up view of the uterine lining revealed a near complete typical ablation of the lining. The tenaculum was removed from the anterior cervix and the device removed from the vagina The patient was now awakened and taken to recovery in a stable condition. Sponge, lap, needle and instrument counts were correct times two. Toradol 30 mg IV was given. Ancef 1 gram IV was given prior to the start of the procedure. Findings of the Procedure Endometrium appeared inactive in areas with a polyp/fibroid and the left apex. Additional proliferative tissue was noted. Endometrial cavity was > 6 cm Cervix was long (5 + cm) Allergies and Home Medications Allergies Coded Allergies: No Known Drug Allergies (Unverified , 10/03/20) Home Medications Albuterol Sulfate 1 Puff Puff, 2 PUFF IH Q4H, (Reported) 1 PUFF = 90 MCG Atorvastatin Calcium 10 Mg Tablet, 10 MG PO HS, (Reported) Canagliflozin 300 Mg Tablet, 300 MG PO DAILY, (Reported) Diclofenac Sodium 50 Mg Tablet.dr, 50 MG PO BID, (Reported) Furosemide 40 Mg Tablet, 40 MG PO BID PRN, (Reported) Insulin Aspart 300 Units/3 Ml Solution, 25 UNITS SQ AC, (Reported) Insulin Detemir 100 Unit/1 Ml Insuln.pen, 50 UNIT SQ BID, (Reported) Linaclotide 145 Mcg Capsule, 145 MCG PO DAILY, (Reported) Liraglutide 0.6 Mg/0.1 Ml Pen.injctr, 1.8 MG SQ DAILY, (Reported) Medroxyprogesterone Acetate 10 Mg Tablet, 10 MG PO DAILY, (Reported) Pantoprazole Sodium 20 Mg Tablet.dr, 40 MG PO DAILY, (Reported) Potassium Chloride 10 Meq Tab.er.prt, 20 MEQ PO DAILY, (Reported) Sucralfate 1 Gm Tablet, 1 GM PO QIDACHS, (Reported) Patient Home Medication List Home Medication List Reviewed: Yes GAYATHRI SPANN DO Oct 03, 2020 14:34
--- NOTE | 2020-10-03 14:50 | Discharge Inst-Women's Service ---
Discharge Inst-Women's Serv Depart Medication/Instructions New, Converted or Re-Newed RX: Transmitted to Pharmacy Final Diagnosis abnormal uterine bleeding endometrial polyp anemia Problems Reviewed?: Yes Consults/Follow Up Additional Follow Up: Yes (1-2 weeks for post op check/gathology) Activity Driving Instructions: No Driving for 24 Hours NO SMOKING: NO SMOKING Nothing Inside Vagina: No Douching, No Anna Diet Discharge Diet: No Restrictions Symptoms to Report to : Swelling Increased, Bleeding Excessive, Pain Increased, Fever Over 101 Degrees F, Vaginal Bleeding Increase, Cramps in Feet or Legs, Lightheadedness, Vaginal Discharge Foul expect light bleeding, discharge for up to two weeks. For Any Problems or Questions: Contact Your Physician GAYATHRI SPANN DO Oct 03, 2020 14:50
[2020-10-03] MEDS ORDERED: OXC5T PO (14:51)
[2020-10-03] MEDS ORDERED: IBUP-844 PO (14:51)
[2020-10-03] MEDS ORDERED: ACET-93 PO (14:51)
--- NOTE | 2020-10-03 14:55 | Anesthesia-General Post-Op ---
General Patient Condition Mental Status/LOC: Same as Preop Cardiovascular: Satisfactory Nausea/Vomiting: Absent Respiratory: Satisfactory Pain: Controlled Complications: Absent Post Op Complications Complications None Follow Up Care/Instructions Patient Instructions None needed. Anesthesia/Patient Condition Patient Condition Patient is doing well, no complaints, stable vital signs, no apparent adverse anesthesia problems. No complications reported per nursing. JEAN HOLLEY CRNA Oct 03, 2020 14:55
[2020-10-03] MEDS ORDERED: MEPERIDINE (DEMEROL) INJ 50 MG/ML IVP ONE (15:00)
[2020-10-03] MEDS ORDERED: HYDROmorphone 2 MG/ML VIAL (DILAUDID) IV ONE (15:00)
[2020-10-03] MEDS ORDERED: ACETAMINOPHEN 500 MG TAB (TYLENOL) PO PRN (15:00)
[2020-10-03] MEDS ORDERED: ONDANSETRON 4 MG/2 ML (SDV) Z0FRAN IVP PRN (15:00)
[2020-10-03] MEDS ORDERED: KETOROLAC 30 MG/ML VIAL IVP ONE (15:00)
[2020-10-03] MEDS ORDERED: morphine INJ 10 MG/ML 1ML (SYR OR VIAL) IVP ONE (15:00)
[2020-10-03] MEDS ORDERED: IBUPROFEN 600 MG (MOTRIN) TAB PO SCH (18:00)
== END 2020-10-03 17:40 | disposition home or self-care (01) ==
LOC: SDC 11:24
PROVIDERS: ATTEND Obstetrics & Gynecology
DX: N84.0 Polyp of corpus uteri (principal); D25.0 Submucous leiomyoma of uterus; I10 Essential (primary) hypertension; J45.909 Unspecified asthma, uncomplicated; K21.9 Gastro-esophageal reflux disease without esophagitis; E11.9 Type 2 diabetes mellitus without complications; E03.9 Hypothyroidism, unspecified; D50.0 Iron deficiency anemia secondary to blood loss (chronic); D50.9 Iron deficiency anemia, unspecified; E66.9 Obesity, unspecified; Z68.41 Body mass index [BMI] 40.0-44.9, adult; Z79.4 Long term (current) use of insulin; Z79.51 Long term (current) use of inhaled steroids; Z79.899 Other long term (current) drug therapy; Z80.52 Family history of malignant neoplasm of bladder; Z80.49 Family history of malignant neoplasm of other genital organs
CPT/HCPCS: 36415; 82962; 84703; 85025; 87081; 88305

== ENCOUNTER 2020-12-27 13:38 | Inpatient (IN) | payer OTHER ==
[~2020-12-27] VITALS: Ht 155 cm; Wt 114.3 kg
[~2020-12-27 13:38] MED LIST changes: +ACET-93 PO; +IBUP-844 PO; +OXC5T PO
--- NOTE | 2020-12-27 13:54 | ED Chest Pain ---
General Chief Complaint: Chest Pain Stated Complaint: L ARM NUMBNESS/CP Source: patient Exam Limitations: no limitations (MAYA ROSE APRN) History of Present Illness Date Seen by Provider: Dec 27, 2020 Time Seen by Provider: 13:50 Initial Comments To ER with reports of left-sided chest pain that she noticed upon awakening this morning. No shortness of breath but the pain is worsened by taking a deep breath and moving. It radiates down the left arm. No cough no fever. She is an insulin-dependent diabetic with hyperlipidemia and hypertension. She has no coronary history. She states that last night she felt as though she had some trouble getting her words out. She knew what she wanted to say but could not get them out. Today that has resolved but she has some reports of left arm "feeling weird" also since awakening this morning at about 9 AM. 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 PRODUCTION SUPERVISOR: No NTG SL WELDING PRODUCTION SUPERVISOR: No Associated Symptoms: No shortness of breath (MAYA ROSE APRN) Allergies and Home Medications Allergies Coded Allergies: No Known Drug Allergies (Unverified , 10/03/20) Home Medications Acetaminophen 500 Mg Tablet, 1,000 MG PO Q8H PRN for PAIN-MILD (1-4) Prescribed by: GAYATHRI SPANN on 10/03/20 1451 Albuterol Sulfate 1 Puff Puff, 2 PUFF IH Q4H, (Reported) 1 PUFF = 90 MCG Atorvastatin Calcium 10 Mg Tablet, 10 MG PO HS, (Reported) Canagliflozin 300 Mg Tablet, 300 MG PO DAILY, (Reported) Diclofenac Sodium 50 Mg Tablet.dr, 50 MG PO BID, (Reported) Furosemide 40 Mg Tablet, 40 MG PO BID PRN, (Reported) Ibuprofen 600 Mg Tablet, 600 MG PO Q6HR Prescribed by: GAYATHRI SPANN on 10/03/20 1451 Insulin Aspart 300 Units/3 Ml Solution, 25 UNITS SQ AC, (Reported) Insulin Detemir 100 Unit/1 Ml Insuln.pen, 50 UNIT SQ BID, (Reported) Linaclotide 145 Mcg Capsule, 145 MCG PO DAILY, (Reported) Liraglutide 0.6 Mg/0.1 Ml Pen.injctr, 1.8 MG SQ DAILY, (Reported) Medroxyprogesterone Acetate 10 Mg Tablet, 10 MG PO DAILY, (Reported) Oxycodone Hcl 5 Mg Tab, 5 MG PO Q6H Prescribed by: GAYATHRI SPANN on 10/03/20 1451 Pantoprazole Sodium 20 Mg Tablet.dr, 40 MG PO DAILY, (Reported) Potassium Chloride 10 Meq Tab.er.prt, 20 MEQ PO DAILY, (Reported) Sucralfate 1 Gm Tablet, 1 GM PO QIDACHS, (Reported) Patient Home Medication List Home Medication List Reviewed: Yes (MAYA ROSE APRN) Review of Systems Review of Systems Constitutional: see HPI EENTM: No Symptoms Reported Respiratory: No Symptoms Reported Cardiovascular: See HPI, Chest Pain; Denies Irregular Heart Rate, Denies Lightheadedness, Denies Palpitations, Denies Syncope Gastrointestinal: See HPI Genitourinary: No Symptoms Reported Musculoskeletal: no symptoms reported Skin: no symptoms reported Psychiatric/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: See HPI, Numbness Endocrine: No Symptoms Reported Hematologic/Lymphatic: No Symptoms Reported (MAYA ROSE APRN) Past Zudjmez-Oskmzh-Bsrkbp Hx Patient Social History Type Used: Cigars Former Smoker, Quit: Oct 03, 1996 2nd Hand Smoke Exposure: No Recent Hopitalizations: No (MAYA ROSE APRN) Immunizations Up To Date Date of Influenza Vaccine: May 05, 2020 (MAYA ROSE APRN) Seasonal Allergies Seasonal Allergies: No (MAYA ROSE APRN) Past Medical History Surgeries: Yes (CYST ) Section, Gallbladder, Tubal Ligation Respiratory: Yes Asthma, Chronic Bronchitis Cardiac: No High Cholesterol, Hypertension 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: No DIRECTOR OF RESERVATIONS History: Tubal Ligation Genitourinary: No UTI-Chronic Gastrointestinal: No Gastroesophageal Reflux, Polyps Musculoskeletal: No Endocrine: Yes Diabetes, Insulin dep HEENT: No (RETINA RUPYURE) Cancer: No Psychosocial: No Integumentary: No Blood Disorders: No (MAYA ROSE APRN) Physical Exam Vital Signs Vital Signs - First Documented 12/27/20 13:40 Temp 36.7 Pulse 88 Resp 17 B/P (MAP) 169/91 (117) O2 Delivery Room Air (PRETTY SULLIVAN MD) Vital Signs Capillary Refill : (MAYA ROSE APRN) Height, Weight, BMI Height: 5'2.00" Weight: 210lbs. oz. 95.339067qw; 44.99 BMI Method:Stated General Appearance: No Apparent Distress, WD/WN, Other (Alert and oriented ambulates to room 3 without difficulty. She is hypertensive at 191/119. Heart rate is 83 sinus without ectopy) HEENT: PERRL/EOMI, TMs Normal Neck: Full Range of Motion, Normal Inspection Respiratory: Lungs Clear, Normal Breath Sounds, No Accessory Muscle Use, No Respiratory Distress Cardiovascular: Regular Rate, Rhythm, Normal Peripheral Pulses Gastrointestinal: Normal Bowel Sounds, Non Tender, Soft Extremity: Normal Capillary Refill, Normal Inspection Neurologic/Psychiatric: Alert, Oriented x3 Skin: Normal Color, Warm/Dry (MAYA ROSE APRN) Progress/Results/Core Measures Results/Orders Lab Results Laboratory Tests Test 12/27/20 13:55 12/27/20 14:32 Range/Units White Blood Count 6.9 4.3-11.0 10^3/uL Red Blood Count 4.38 3.80-5.11 10^6/uL Hemoglobin 12.2 11.5-16.0 g/dL Hematocrit 35 35-52 % Mean Corpuscular Volume 80 80-99 fL Mean Corpuscular Hemoglobin 28 25-34 pg Mean Corpuscular Hemoglobin Concent 35 32-36 g/dL Red Cell Distribution Width 12.7 10.0-14.5 % Platelet Count 337 130-400 10^3/uL Mean Platelet Volume 10.1 9.0-12.2 fL Immature Granulocyte % (Auto) 0 % Neutrophils (%) (Auto) 70 42-75 % Lymphocytes (%) (Auto) 20 12-44 % Monocytes (%) (Auto) 7 0-12 % Eosinophils (%) (Auto) 3 0-10 % Basophils (%) (Auto) 0 0-10 % Neutrophils # (Auto) 4.8 1.8-7.8 10^3/uL Lymphocytes # (Auto) 1.4 1.0-4.0 10^3/uL Monocytes # (Auto) 0.5 0.0-1.0 10^3/uL Eosinophils # (Auto) 0.2 0.0-0.3 10^3/uL Basophils # (Auto) 0.0 0.0-0.1 10^3/uL Immature Granulocyte # (Auto) 0.0 0.0-0.1 10^3/uL Prothrombin Time 12.1 L 12.2-14.7 SEC INR Comment 0.9 0.8-1.4 Activated Partial Thromboplast Time 26 24-35 SEC D-Dimer 0.98 H 0.00-0.49 UG/ML Sodium Level 128 L 135-145 MMOL/L Potassium Level 4.8 3.6-5.0 MMOL/L Chloride Level 96 L 98-107 MMOL/L Carbon Dioxide Level 21 21-32 MMOL/L Anion Gap 11 5-14 MMOL/L Blood Urea Nitrogen 23 H 7-18 MG/DL Creatinine 2.20 H 0.60-1.30 MG/DL Estimat Glomerular Filtration Rate 30 BUN/Creatinine Ratio 10 Glucose Level 784 *H 70-105 MG/DL Calcium Level 8.9 8.5-10.1 MG/DL Corrected Calcium 10.2 H 8.5-10.1 MG/DL Total Bilirubin 0.3 0.1-1.0 MG/DL Aspartate Amino Transf (AST/SGOT) 15 5-34 U/L Alanine Aminotransferase (ALT/SGPT) 14 0-55 U/L Alkaline Phosphatase 169 H 40-136 U/L Troponin I < 0.028 <0.028 NG/ML Total Protein 5.5 L 6.4-8.2 GM/DL Albumin 2.4 L 3.2-4.5 GM/DL Serum Test, Qualitative NEGATIVE NEGATIVE Urine Color YELLOW Urine Clarity CLEAR Urine pH 7.0 5-9 Urine Specific Bronson 1.015 L 1.016-1.022 Urine Protein 2+ H NEGATIVE Urine Glucose (UA) 3+ H NEGATIVE Urine Ketones NEGATIVE NEGATIVE Urine Nitrite NEGATIVE NEGATIVE Urine Bilirubin NEGATIVE NEGATIVE Urine Urobilinogen 0.2 < = 1.0 MG/DL Urine Leukocyte Esterase NEGATIVE NEGATIVE Urine RBC (Auto) TRACE-I NEGATIVE Urine RBC 0-2 /HPF Urine WBC 0-2 /HPF Urine Squamous Epithelial Cells 0-2 /HPF Urine Crystals NONE /LPF Urine Bacteria NEGATIVE /HPF Urine Casts PRESENT /LPF Urine Red Blood Cell Casts 0-2 H /LPF Urine Mucus NEGATIVE /LPF Urine Culture Indicated NO (PRETTY SULLIVAN MD) Medications Given in ED Current Medications Medications Dose Ordered Sig/Christopher Route Start Time Stop Time Status Last Admin Dose Admin Insulin Human Regular 10 unit ONCE ONCE IV 12/27/20 14:30 12/27/20 14:31 DC 12/27/20 14:29 10 UNIT (PRETTY SULLIVAN MD) Vital Signs/I&O 12/27/20 12/27/20 13:40 13:40 Temp 36.7 Pulse 88 Resp 17 B/P (MAP) 169/91 (117) O2 Delivery Room Air Room Air (PRETTY SULLIVAN MD) Progress Progress Note : Progress Note I was physically present in the emergency department as attending physician gloria ng the care of this patient. I was not directly involved in this patient's care. (PRETTY SULLIVAN MD) Initial ECG Impression Date: Dec 27, 2020 Initial ECG Impression Time: 13:54 Initial ECG Rate: 79 Initial ECG Rhythm: Normal Sinus Initial ECG Intervals: Normal Initial ECG Impression: Nonspecific Changes Initial ECG Comparisson: No Previous ECG Available (MAYA ROSE APRN) Departure Communication (Admissions) 1530-discussed the case with Dr. Weems will admit on N K protocol (MAYA ROSE APRN) Impression Primary Impression: Hyperglycemia due to diabetes mellitus Disposition: ADMITTED INPATIENT Condition: Stable Admissions Decision to Admit Reason: Admit from ER (General) Decision to Admit/Date: Dec 27, 2020 Time/Decision to Admit Time: 15:30 (MAYA ROSE APRN) Departure-Patient Inst. Referrals: [facility] [place] (PCP/Family) Primary Care Physician NIH Stroke Scale NIH Stroke Scale NIH : Select: Initial Level of Consciousness: 0=Alert Level of Consciousness-Questio: 0=Answers both month/age LOC Commands: 0=Performs both tasks Gaze: 0=Normal Visual [place]: 0=No visual loss Facial Movement (Facial Paresi: 0=Normal symmetrical mnt Motor Function-Arms Right: 0=No drift Motor Function-Arms Left: 0=No drift Motor Function-Legs Right: 0=No drift Motor Function-Legs Left: 0=No drift Limb Ataxia: 0=Absent Sensory: 1=Mild to Moderate loss Best Language: 0=No aphasia Dysarthria: 0=Normal Extinction & Inattention: 0=No abnormality NIH Stroke Scale Score: 1 (MAYA ROSE APRN) MAYA ROSE APRN Dec 27, 2020 13:54 PRETTY SULLIVAN MD Dec 27, 2020 15:40
[2020-12-27] MEDS ORDERED: meTOprolol 5 MG/5 ML (LOPRESSOR) VIAL IV ONE (14:00)
[2020-12-27 14:04] LABS: BASOPHILS % (AUTO) 0 % (0-10); EOSINOPHILS # (AUTO) 0.2 10^3/uL (0.0-0.3); EOSINOPHILS % (AUTO) 3 % (0-10); HEMATOCRIT 35 % (35-52); HEMOGLOBIN 12.2 g/dL (11.5-16.0); LYMPHOCYTES # (AUTO) 1.4 10^3/uL (1.0-4.0); LYMPHOCYTES % (AUTO) 20 % (12-44); MEAN CORPUSCULAR HEMOGLOBIN 28 pg (25-34); MEAN CORPUSCULAR HGB CONC 35 g/dL (32-36); MEAN CORPUSCULAR VOLUME 80 fL (80-99); MEAN PLATELET VOLUME 10.1 fL (9.0-12.2); MONOCYTES # (AUTO) 0.5 10^3/uL (0.0-1.0); MONOCYTES % (AUTO) 7 % (0-12); NEUTROPHILS # (AUTO) 4.8 10^3/uL (1.8-7.8); NEUTROPHILS % (AUTO) 70 % (42-75); PLATELET COUNT 337 10^3/uL (130-400); WHITE BLOOD COUNT 6.9 10^3/uL (4.3-11.0)
[2020-12-27 14:16] LABS: ALBUMIN 2.4 GM/DL (3.2-4.5)
[2020-12-27 14:17] LABS: CHLORIDE 96 MMOL/L (98-107); POTASSIUM 4.8 MMOL/L (3.6-5.0); SODIUM 128 MMOL/L (135-145)
[2020-12-27 14:18] LABS: CALCIUM 8.9 MG/DL (8.5-10.1); FIBRIN DEGRADATION PRODUCTS 0.98 UG/ML (0.00-0.49); INR 0.9 (0.8-1.4); PROTHROMBIN TIME PATIENT 12.1 SEC (12.2-14.7)
[2020-12-27 14:19] LABS: TOTAL PROTEIN 5.5 GM/DL (6.4-8.2)
[2020-12-27 14:20] LABS: CARBON DIOXIDE 21 MMOL/L (21-32)
[2020-12-27 14:21] LABS: BILIRUBIN,TOTAL 0.3 MG/DL (0.1-1.0)
[2020-12-27 14:22] LABS: ALKALINE PHOSPHATASE 169 U/L (40-136)
[2020-12-27 14:23] LABS: GFR ESTIMATED 30
[2020-12-27 14:24] LABS: BUN/CREATININE RATIO 10
[2020-12-27 14:26] LABS: ALANINE AMINOTRANSFERASE 14 U/L (0-55)
[2020-12-27] MEDS ORDERED: NS IV 1000 ML 1,000 ML IV SCH ×7 (14:30→18:30)
[2020-12-27] MEDS ORDERED: inSUlin (REGULAR) HUMAN 1 UNIT/0.01 ML (CHARGE PER UNIT) IV ONE ×2 (14:30→20:30)
[2020-12-27 14:31] LABS: GLUCOSE 784 MG/DL (70-105)
[2020-12-27 14:42] LABS: BILIRUBIN,URINE NEGATIVE (NEGATIVE); CLARITY,URINE CLEAR; COLOR,URINE YELLOW; GLUCOSE, URINE (UA) 3+ (NEGATIVE); KETONES,URINE NEGATIVE (NEGATIVE); LEUKOCYTE ESTERASE ,URINE NEGATIVE (NEGATIVE); NITRITE,URINE NEGATIVE (NEGATIVE); PROTEIN,URINE 2+ (NEGATIVE)
--- NOTE | 2020-12-27 15:02 | Diagnostic Imaging Report ---
Procedure: CT head w/o r/o stroke. Technique: Multiple contiguous axial images were obtained through the brain without the use of intravenous contrast. Auto Exposure Controls were utilized during the CT exam to meet ALARA standards for radiation dose reduction. Indication: Altered mental status with chest pain and left arm numbness. Comparison: None. Discussion: No intracranial hemorrhage, mass, midline shift, or hydrocephalus. The ventricles and sulci are normal size and configuration for age. The visualized orbits, paranasal sinuses, mastoid air cells, and calvarium are unremarkable. Impression: Negative head CT. Dictated by: Dictated on workstation # [id number]
--- NOTE | 2020-12-27 15:03 | Diagnostic Imaging Report ---
Indication: Chest pain with left arm numbness. Comparison: None. Discussion: Single portable upright view of the chest was obtained. Normal heart size. No consolidation, pleural fluid or pneumothorax. No osseous abnormality. Impression: Negative chest. Dictated by: Dictated on workstation # [id number]
[2020-12-27 15:21] LABS: BACTERIA,URINE NEGATIVE /HPF; RBC,URINE 0-2 /HPF; RED BLOOD CELL CASTS,URINE 0-2 /LPF; SQUAMOUS EPITHELIAL CELL,UR 0-2 /HPF; WBC,URINE 0-2 /HPF
--- NOTE | 2020-12-27 16:12 | Pulmonary Consultation ---
History of Present Illness History of Present Illness Date Seen by Provider: Dec 27, 2020 Time Seen by Provider: 16:15 Date of Admission Admitted with elev BG 784, chest pain. PMH: DM, htn, HL, chronic pain, GERD, asthma, m. obesity. SH FH and ROS per ED rpt. No other sx X as in PC. PE: Obese, comfortable. 36.7 88 17 169/91. No other significant findings. BUN 23 Cr 2.0 BG 784 Troponin normal. A/P: hyperglycemia, CP., htn. IV Regular 10 units, IVF. Monitor BP. Allergies and Home Medications Allergies Coded Allergies: No Known Drug Allergies (Unverified , 10/03/20) Home Medications Acetaminophen 500 Mg Tablet, 1,000 MG PO Q8H PRN for PAIN-MILD (1-4) Prescribed by: GAYATHRI SPANN on 10/03/201450 Albuterol Sulfate 1 Puff Puff, 2 PUFF IH Q4H, (Reported) 1 PUFF = 90 MCG Atorvastatin Calcium 10 Mg Tablet, 10 MG PO HS, (Reported) Canagliflozin 300 Mg Tablet, 300 MG PO DAILY, (Reported) Diclofenac Sodium 50 Mg Tablet.dr, 50 MG PO BID, (Reported) Furosemide 40 Mg Tablet, 40 MG PO BID PRN, (Reported) Ibuprofen 600 Mg Tablet, 600 MG PO Q6HR Prescribed by: GAYATHRI SPANN on 10/03/201450 Insulin Aspart 300 Units/3 Ml Solution, 25 UNITS SQ AC, (Reported) Insulin Detemir 100 Unit/1 Ml Insuln.pen, 50 UNIT SQ BID, (Reported) Linaclotide 145 Mcg Capsule, 145 MCG PO DAILY, (Reported) Liraglutide 0.6 Mg/0.1 Ml Pen.injctr, 1.8 MG SQ DAILY, (Reported) Medroxyprogesterone Acetate 10 Mg Tablet, 10 MG PO DAILY, (Reported) Oxycodone Hcl 5 Mg Tab, 5 MG PO Q6H Prescribed by: GAYATHRI SPANN on 10/03/201450 Pantoprazole Sodium 20 Mg Tablet.dr, 40 MG PO DAILY, (Reported) Potassium Chloride 10 Meq Tab.er.prt, 20 MEQ PO DAILY, (Reported) Sucralfate 1 Gm Tablet, 1 GM PO QIDACHS, (Reported) Past Medical/Social/Family Hx Patient Social History Smoking Status: Former Smoker Sepsis Event Evaluation Height, Weight, BMI Height: 5'2.00" Weight: 210lbs. oz. 95.586040wi; 36.00 BMI Method:Stated Exam Exam Vital Signs Date Time Temp Pulse Resp B/P (MAP) Pulse Ox O2 Delivery O2 Flow Rate FiO2 12/27/20 13:40 36.7 88 17 169/91 (117) Room Air 12/27/20 13:40 Room Air Height & Weight Height: 5'2.00" Weight: 210lbs. oz. 95.884669xa; 36.00 BMI Method:Stated General Appearance: No Apparent Distress, WD/WN, Other (Alert and oriented ambulates to room 3 without difficulty. She is hypertensive at 191/119. Heart rate is 83 sinus without ectopy) HEENT: PERRL/EOMI, TMs Normal Neck: Full Range of Motion, Normal Inspection Respiratory: Lungs Clear, Normal Breath Sounds, No Accessory Muscle Use, No Respiratory Distress Cardiovascular: Regular Rate, Rhythm, Normal Peripheral Pulses Capillary Refill: Less Than 3 Seconds Extremity: Normal Capillary Refill, Normal Inspection Neurologic/Psychiatric: Alert, Oriented x3 Skin: Normal Color, Warm/Dry Results Lab Laboratory Tests 12/27/20 13:55 MIROSLAVA ZHOU MD Dec 27, 2020 16:12
[2020-12-27] MEDS ORDERED: 1/2 NS IV SOLUTION 1,000 ML IV SCH (16:30)
[2020-12-27] MEDS ORDERED: POTASSIUM CL 10MEQ/50ML IVPB 50 ML IV SCH (16:30)
[2020-12-27] MEDS ORDERED: CATHETER FLUSH 10 ML SYR IV PRN (16:30)
[2020-12-27] MEDS ORDERED: ONDANSETRON 4 MG/2 ML (SDV) Z0FRAN IV PRN (16:30)
[2020-12-27] MEDS ORDERED: D5 1/2 NS 1000 ML IV SOLUTION 1,000 ML IV SCH (16:30)
[2020-12-27] MEDS ORDERED: fentaNYL INJ 100 MCG/2 ML AMP IV PRN (16:30)
[2020-12-27 17:25] LABS: BILIRUBIN,URINE NEGATIVE (NEGATIVE); CLARITY,URINE CLEAR; COLOR,URINE YELLOW; GLUCOSE, URINE (UA) 3+ (NEGATIVE); KETONES,URINE NEGATIVE (NEGATIVE); LEUKOCYTE ESTERASE ,URINE NEGATIVE (NEGATIVE); NITRITE,URINE NEGATIVE (NEGATIVE); PROTEIN,URINE 3+ (NEGATIVE)
[2020-12-27 17:36] LABS: BACTERIA,URINE NEGATIVE /HPF; RBC,URINE 0-2 /HPF; SQUAMOUS EPITHELIAL CELL,UR 0-2 /HPF; WBC,URINE 0-2 /HPF
[2020-12-27 18:22] LABS: POTASSIUM 3.8 MMOL/L (3.6-5.0)
[2020-12-27 18:23] LABS: CALCIUM 8.8 MG/DL (8.5-10.1)
[2020-12-27 18:28] LABS: CREATININE SERUM 1.77 MG/DL (0.60-1.30)
[2020-12-27] MEDS ORDERED: NS IV 1000 ML 1,000 ML ONE (18:33)
[2020-12-27] MEDS ORDERED: fentaNYL INJ 100 MCG/2 ML AMP IVP PRN (20:30)
[2020-12-27] MEDS ORDERED: ONDANSETRON 4 MG/2 ML (SDV) Z0FRAN IVP PRN (20:30)
[2020-12-27] MEDS ORDERED: DEXTROSE 50% 50 ML (IMS) SYR IV PRN ×2 (20:30)
[2020-12-27] MEDS: NS IV 1000 ML 1,000 ML IV SCH (21:06)
[2020-12-28] MEDS: NS IV 1000 ML 1,000 ML IV SCH ×2 (02:01→10:12)
[2020-12-28] MEDS: ACETAMINOPHEN 500 MG TAB (TYLENOL) PO PRN ×3 (03:00→14:20)
[2020-12-28 03:16] LABS: BASOPHILS # (AUTO) 0.1 10^3/uL (0.0-0.1); BASOPHILS % (AUTO) 1 % (0-10); EOSINOPHILS # (AUTO) 0.4 10^3/uL (0.0-0.3); EOSINOPHILS % (AUTO) 4 % (0-10); HEMATOCRIT 33 % (35-52); HEMOGLOBIN 11.2 g/dL (11.5-16.0); LYMPHOCYTES # (AUTO) 4.2 10^3/uL (1.0-4.0); LYMPHOCYTES % (AUTO) 38 % (12-44); MEAN CORPUSCULAR HEMOGLOBIN 28 pg (25-34); MEAN CORPUSCULAR HGB CONC 34 g/dL (32-36); MEAN CORPUSCULAR VOLUME 81 fL (80-99); MEAN PLATELET VOLUME 9.9 fL (9.0-12.2); MONOCYTES # (AUTO) 0.8 10^3/uL (0.0-1.0); MONOCYTES % (AUTO) 7 % (0-12); NEUTROPHILS # (AUTO) 5.5 10^3/uL (1.8-7.8); NEUTROPHILS % (AUTO) 50 % (42-75); PLATELET COUNT 384 10^3/uL (130-400)
[2020-12-28 03:27] LABS: POTASSIUM 3.7 MMOL/L (3.6-5.0)
[2020-12-28 03:29] LABS: CALCIUM 8.6 MG/DL (8.5-10.1)
[2020-12-28 03:33] LABS: CREATININE SERUM 1.63 MG/DL (0.60-1.30); PHOSPHORUS 3.2 MG/DL (2.3-4.7)
[2020-12-28] MEDS: inSUlin ASPART (NovoLOG) 1 UNIT/0.01 ML (CHARGE PER UNIT) SC SCH ×4 (05:06→17:35)
[2020-12-28] MEDS ORDERED: MAGNESIUM 1 GM/100 ML IVPB 100 ML IV SCH (06:00)
[2020-12-28] MEDS ORDERED: POTASSIUM CL 10MEQ/50ML IVPB 50 ML IV SCH (06:00)
[2020-12-28] MEDS ORDERED: KCL 20 MEQ TAB (K-DUR) PO SCH (06:00)
--- NOTE | 2020-12-28 08:18 | History & Physical-Hospitalist ---
History of Present Illness HPI/Chief Complaint Chief complaint: Generalized weakness with severely high sugar History of present illness: This is a 40-year-old -[place] female who has a past medical history of diabetes insulin requiring with severe insulin r esistance who presented to the ER with a fuzzy feeling. She reports that is been progressive and no unilateral weakness but work-up ensued showing very elevated sugar at 784. She was placed on insulin drip for non-DKA hyperglycemia and she currently is much improved waiting to go downstairs. She requires an enormous amount of insulin. Patient has definite apathy. Source: patient, RN/MD Exam Limitations: no limitations Date Seen 12/28/20 Time Seen by a Provider: 11:45 Attending Physician Rhea Weems DO [facility]/On License Of [facility] Referring Physician Date of Admission Dec 27, 2020 at 14:33 Home Medications & Allergies Home Medications Reviewed patient Home Medication Reconciliation performed by pharmacy medication reconciliations weight reducing technician and/or nursing. Patients Allergies have been reviewed. Allergies Allergies Coded Allergies No Known Drug Allergies (Unverified10/03/20) Past Tiwcvol-Xiouue-Calkbk Hx Patient Social History Marrital Status: Employed/Student: unemployed Tobacco Use?: No Smoking Status: Former Smoker Use of E-Cig and/or Vaping dev: No Substance use?: No Alcohol Use?: Yes Alcohol type: Wine Alcohol Frequency: Once in a while Additional Alcohol Comments: N/A Pt feels they are or have been: No Immunizations Up To Date Date of Influenza Vaccine: Apr 28, 2020 Hepatitis A: No Hepatitis B: No Seasonal Allergies Seasonal Allergies: No Current Status status: No status: No Advance Directives: No Communicates: Verbally Primary Language: Swedish Preferred Spoken Language: Swedish Is interpretation needed?: No Sensory deficits: Vision impairment Additional sensory deficits: REPORTS SHE DOES NOT NEED GLASSES HERE Implanted or Applied Medical D: None Past Medical History Surgeries: Section, Gallbladder, Tubal Ligation Asthma, Chronic Bronchitis High Cholesterol, Hypertension 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 oz. 95.899581pt; 47.28 BMI Method:Stated General Appearance: No Apparent Distress, Chronically ill, Obese Eyes: Right Eye Normal Inspection, Right Eye PERRL HEENT: PERRL/EOMI, Normal ENT Inspection, Pharynx Normal, Moist Mucous Membr anes Neck: Full Range of Motion, Normal Inspection, Non Tender Respiratory: Chest Non Tender, Lungs Clear, Normal Breath Sounds, No Accessory Muscle Use, No Respiratory Distress Cardiovascular: Regular Rate, Rhythm, No Edema, No Gallop, No JVD, No Murmur, Normal Peripheral Pulses Gastrointestinal: Normal Bowel Sounds, No Organomegaly, No Pulsatile Mass, Non Tender, Soft Back: Normal Inspection, No CVA Tenderness, No Vertebral Tenderness Extremity: Normal Capillary Refill, Normal Inspection, Normal Range of Motion, Non Tender, No Calf Tenderness, No Pedal Edema Neurologic/Psychiatric: Alert, Oriented x3, No Motor/Sensory Deficits, Depresse d Affect Skin: Normal Color, Warm/Dry Lymphatic: No Adenopathy Results Results/Procedures Labs Laboratory Tests 12/27/20 13:55 12/27/20 18:05 12/28/20 02:48 Patient resulted labs reviewed. Assessment/Plan Admission Diagnosis Assessment: Hyperosmolar nonketotic state status post insulin drip Hypertension Obesity Plan: Transition insulin drip to subcu insulin Monitor closely Severe insulin resistance Admission Status: Inpatient Order (span 2 midnights) Reason for Inpatient Admission: Severe hyperglycemia Clinical Quality Measures AMI/AHF: ASA po Prior to arrival: RHEA Dallas DO Dec 28, 2020 08:18
[2020-12-28] MEDS ORDERED: inSUlin (REGULAR) HUMAN 1 UNIT/0.01 ML (CHARGE PER UNIT) SC NR (08:30)
[2020-12-28] MEDS ORDERED: FUROSEMIDE 40 MG (LASIX) TAB PO PRN (11:45)
[2020-12-28] MEDS ORDERED: RX-IBUPROFEN 600 MG (MOTRIN) TAB PPK#4 PO SCH (12:00)
[2020-12-28] MEDS: IBUPROFEN 600 MG (MOTRIN) TAB PO SCH ×3 (12:20→23:21)
[2020-12-28] MEDS: SUCRALFATE 1 GM (CARAFATE) TAB PO SCH ×3 (12:20→20:56)
[2020-12-28 12:47] VITALS: BP 155/94
[2020-12-28] MEDS ORDERED: ONDANSETRON 4 MG (ZOFRAN) ORAL DISSOLVE TAB PO PRN (13:00)
[2020-12-28] MEDS: RT-ALBUTEROL SULF 2.5 MG/3 ML PRE-MIX VIAL IH SCH ×3 (15:32→21:36)
[2020-12-28 16:20] VITALS: BP 132/83
[2020-12-28] MEDS ORDERED: inSUlin ASPART (NovoLOG) 1 UNIT/0.01 ML (CHARGE PER UNIT) ONE ×2 (17:32→20:52)
[2020-12-28 19:52] VITALS: BP 132/73
[2020-12-28] MEDS ORDERED: inSUlin ASPART (NovoLOG) 1 UNIT/0.01 ML (CHARGE PER UNIT) SC ONE (20:45)
[2020-12-28] MEDS ORDERED: NON-FORMULARY MEDICATION 1 EA EA (Diclofenac Sodium 50 MG) PO SCH (21:00)
[2020-12-28] MEDS ORDERED: ATORVASTATIN 10 MG TABLET PO SCH (21:00)
[2020-12-28] MEDS ORDERED: RT-ALBUTEROL/IPRATROPIUM 3 ML (DUONEB) VIAL ONE (21:30)
[2020-12-28 23:52] VITALS: BP 144/86
[2020-12-29] MEDS: RT-ALBUTEROL SULF 2.5 MG/3 ML PRE-MIX VIAL IH SCH ×3 (02:30→10:32)
[2020-12-29 04:27] VITALS: BP 158/82
[2020-12-29 05:45] LABS: BASOPHILS % (AUTO) 0 % (0-10); EOSINOPHILS # (AUTO) 0.3 10^3/uL (0.0-0.3); EOSINOPHILS % (AUTO) 3 % (0-10); HEMATOCRIT 31 % (35-52); HEMOGLOBIN 10.3 g/dL (11.5-16.0); LYMPHOCYTES # (AUTO) 2.5 10^3/uL (1.0-4.0); LYMPHOCYTES % (AUTO) 28 % (12-44); MEAN CORPUSCULAR HEMOGLOBIN 27 pg (25-34); MEAN CORPUSCULAR HGB CONC 34 g/dL (32-36); MEAN CORPUSCULAR VOLUME 81 fL (80-99); MEAN PLATELET VOLUME 9.5 fL (9.0-12.2); MONOCYTES # (AUTO) 0.6 10^3/uL (0.0-1.0); MONOCYTES % (AUTO) 7 % (0-12); NEUTROPHILS # (AUTO) 5.4 10^3/uL (1.8-7.8); NEUTROPHILS % (AUTO) 61 % (42-75); PLATELET COUNT 302 10^3/uL (130-400); WHITE BLOOD COUNT 8.8 10^3/uL (4.3-11.0)
[2020-12-29 05:59] LABS: POTASSIUM 3.6 MMOL/L (3.6-5.0)
[2020-12-29 06:00] LABS: CALCIUM 8.1 MG/DL (8.5-10.1)
[2020-12-29 06:01] LABS: TOTAL PROTEIN 4.8 GM/DL (6.4-8.2)
[2020-12-29 06:03] LABS: BILIRUBIN,TOTAL 0.1 MG/DL (0.1-1.0)
[2020-12-29 06:05] LABS: CREATININE SERUM 1.71 MG/DL (0.60-1.30)
[2020-12-29] MEDS: SUCRALFATE 1 GM (CARAFATE) TAB PO SCH ×2 (06:26→11:54)
[2020-12-29] MEDS: IBUPROFEN 600 MG (MOTRIN) TAB PO SCH ×2 (06:26→11:54)
[2020-12-29 07:25] VITALS: BP 172/92
[2020-12-29] MEDS: ACETAMINOPHEN 500 MG TAB (TYLENOL) PO PRN (07:53)
[2020-12-29] MEDS ORDERED: PANTOPRAZOLE 40 MG (PROTONIX) TAB PO ONE (07:55)
[2020-12-29] MEDS: inSUlin ASPART (NovoLOG) 1 UNIT/0.01 ML (CHARGE PER UNIT) SC SCH ×2 (07:59→11:46)
[2020-12-29] MEDS ORDERED: NON-FORMULARY MEDICATION 1 EA EA (Liraglutide (Victoza 2-Pak) 1.8 MG) SQ SCH (09:00)
[2020-12-29] MEDS ORDERED: NON-FORMULARY MEDICATION 1 EA EA (Linaclotide (Linzess) 145 MCG) PO SCH (09:00)
[2020-12-29] MEDS ORDERED: NON-FORMULARY MEDICATION 1 EA EA (Canagliflozin (Invokana) 300 MG) PO SCH (09:00)
[2020-12-29] MEDS ORDERED: PANTOPRAZOLE 40 MG (PROTONIX) TAB PO SCH (09:00)
[2020-12-29] MEDS ORDERED: NON-FORMULARY MEDICATION 1 EA EA (Potassium Chloride 20 MEQ) PO SCH (09:00)
[2020-12-29] MEDS ORDERED: PANTOPRAZOLE 20 MG TABLET (PROTONIX) PO SCH (09:00)
[2020-12-29] MEDS ORDERED: amLODIPine 5 MG (NORVASC) TAB PO NR (10:15)
[2020-12-29] MEDS ORDERED: IBUP-2473 PO (10:39)
[2020-12-29] MEDS ORDERED: INSU100I23 SQ (10:39)
[2020-12-29] MEDS ORDERED: INSU100I10 SQ (10:39)
[2020-12-29] MEDS ORDERED: ACET-2267 PO (10:39)
[2020-12-29] MEDS ORDERED: PANT40TA52 PO (10:39)
[2020-12-29 11:23] VITALS: BP 167/97
--- NOTE | 2020-12-29 11:40 | Discharge Summary ---
Diagnosis/Chief Complaint Date of Admission Dec 27, 2020 at 14:33 Date of Discharge 12/29/20 Admission Diagnosis Admission Diagnosis Hyperosmolar Non Ketotic state Type II DM with hyperglycemia HTN Morbid Obesity Discharge Diagnosis See Above Discharge Summary-Simple/Stand Consultations Discharge Physical Examination Allergies: Coded Allergies: lisinopril (Verified Allergy, Severe, COUGH, 12/29/20) Vitals & I&Os Vital Sign - Last 12Hours Date Time Temp Pulse Resp B/P (MAP) Pulse Ox O2 Delivery O2 Flow Rate FiO2 12/29/20 10:32 98 Room Air 12/29/20 07:25 36.9 68 18 172/92 (118) Intake and Output 12/29/20 00:00 Intake Total 1635 ml Balance 1635 ml Hospital Course See final discharge diagnosis. Discharge Instructions to patient/family Please see electronic discharge instructions given to patient. Discharge Medications Reviewed and agree with Discharge Medication list on patient's Discharge Instruction sheet Clinical Quality Measures AMI/AHF: ASA po Prior to arrival: JOSH Rosenthal MD Dec 29, 2020 11:40
[2020-12-29] MEDS ORDERED: AMLO-250 PO (11:42)
--- NOTE | 2020-12-29 11:43 | Discharge Summary ---
Discharge [facility] Reconcile Patient Problems Problems Reviewed?: Yes Discharge Medications New, Converted or Re-Newed RX: Transmitted to Pharmacy New Medications: Amlodipine Besylate (Amlodipine Besylate) 5 Mg Tablet 5 MG PO 1015, #30 TAB Continued Medications: Acetaminophen (Tylenol Extra Strength) 500 Mg Tablet 1000 MG PO Q8H PRN for PAIN-MILD (1-4), TAB TAKES 2 (500MG) TABLETS Atorvastatin Calcium (Atorvastatin Calcium) 10 Mg Tablet 10 MG PO HS, TAB Canagliflozin (Invokana) 300 Mg Tablet 300 MG PO DAILY, TAB Furosemide (Furosemide) 40 Mg Tablet 40 MG PO BID PRN for WATER RETENTION, TAB Ibuprofen (Ibuprofen) 200 Mg Tablet 600 MG PO Q6H PRN for PAIN-MILD (1-4), TAB TAKES 3 (200MG) TABLETS Insulin Glargine,Hum.rec.anlog (Lantus Solostar) 100 Unit/1 Ml Insuln.pen 50 UNITS SQ BID, EACH Insulin Lispro (Humalog Kwikpen) 100 Unit/1 Ml Insuln.pen 25 UNITS SQ TIDAC, EACH Linaclotide (Linzess) 145 Mcg Capsule 145 MCG PO DAILY, CAP Liraglutide (Victoza 2-Jayme) 0.6 Mg/0.1 Ml Pen.injctr 1.8 MG SQ DAILY, VIAL Pantoprazole Sodium (Pantoprazole Sodium) 40 Mg Tablet.dr 40 MG PO DAILY, TAB Potassium Chloride (Potassium Chloride) 10 Meq Tab.er.prt 20 MEQ PO DAILY Discontinued Medications: Diclofenac Sodium (Diclofenac Sodium) 50 Mg Tablet.dr 50 MG PO BID, TAB Patient Instructions Goal/Follow Up Appt: F/u with PCP Kam Farah in 1 week Activity & Diet Discharge Diet: ADA Diet, Cardiac Diet Activity as Tolerated: Yes Copy Copies To 1: [facility], JOSH Squires MD Dec 29, 2020 11:43
[2020-12-29] MEDS ORDERED: RT-ALBUTEROL SULF 2.5 MG/3 ML PRE-MIX VIAL IH PRN (12:00)
== END 2020-12-29 13:35 | disposition home or self-care (01) | DRG 638 ==
LOC: EDUNIT# 13:38 → ER 13:40 → ICU 14:33 → 4TH 12-28 12:26
PROVIDERS: ADMIT Internal Medicine; ATTEND Internal Medicine
DX: E11.00 Type 2 diabetes mellitus with hyperosmolarity without nonketotic hyperglycemic-hyperosmolar coma (NKHHC) (principal); Z68.42 Body mass index [BMI] 45.0-49.9, adult; I10 Essential (primary) hypertension; E66.01 Morbid (severe) obesity due to excess calories; Z87.891 Personal history of nicotine dependence; E78.00 Pure hypercholesterolemia, unspecified; K21.9 Gastro-esophageal reflux disease without esophagitis; Z79.4 Long term (current) use of insulin
CPT/HCPCS: 36415; 70450; 71045; 80048; 80053; 80061; 81000; 82010; 82947; 83036; 83735; 84100; 84484; 84703; 85025; 85027; 85379; 85610; 85730; 87081; 93005; 93041; 94640; 94760

== ENCOUNTER → 2021-02-27 | Outpatient (CLI) | payer OTHER ==
[~2021-02-27] MED LIST changes: +ACET-2267 PO; +AMLO-250 PO; +IBUP-2473 PO; +INSU100I10 SQ; +INSU100I23 SQ; +PANT40TA52 PO
--- NOTE | 2021-02-27 16:29 | Diagnostic Imaging Report ---
PROCEDURE: US Thyroid. TECHNIQUE: Multiple real-time grayscale images were obtained of the thyroid in various projections. INDICATION: Thyroid nodules. COMPARISON: August 19, 2020. FINDINGS: The right lobe of the thyroid gland is enlarged measuring 6.7 x 2.7 x 3.0 cm. A solid mixed echogenicity nodule with a lobulated contour is noted within the inferior pole of the right thyroid lobe measuring 3.5 x 3.2 x 1.9 cm. This has not significantly changed from the prior examination. Additional 0.8 cm partially cystic nodule within the lateral aspect of the right mid thyroid lobe is unchanged from the prior examination. No new right thyroid nodules. The left lobe of the thyroid gland is enlarged measuring 6.8 x 1.7 x 2.6 cm. 0.8 x 0.6 cm ovoid isoechoic nodule is again noted within the mid left thyroid lobe, not significantly changed from the prior examination. No new left thyroid nodules present. The isthmus is thickened. IMPRESSION: Stable 3.5 cm TI-RADS 3 nodule within the right thyroid lobe. Recommend correlation with prior fine-needle aspiration. Additional stable subcentimeter bilateral thyroid nodules without new thyroid nodule. Thyromegaly. Dictated by: Dictated on workstation # [id number]
== END ==
LOC: RAD 15:00
PROVIDERS: ATTEND Otolaryngology Otolaryngology/Facial Plastic Surgery
DX: E04.1 Nontoxic single thyroid nodule (principal)
CPT/HCPCS: 76536

== ENCOUNTER 2021-07-31 10:35 | Emergency (ER) | payer OTHER ==
[~2021-07-31] VITALS: Ht 157 cm; Wt 114.7 kg
[~2021-07-31 10:35] MED LIST changes: -POTA10TA36 PO; +POTA10TA37 PO
--- NOTE | 2021-07-31 11:08 | ED Cough/URI ---
General Chief Complaint: COVID19 Suspect/Confirmed Stated Complaint: FEVER,CHILLS,LEVY,BODY ACHES Nursing Triage Note: PT PRESENTS TO ED VIA POV FROM HOME WITH COMPLAINTS OF COUGH, FEVER, LEVY, AND SORE THROAT X 4-5 DAYS. PT REPORTS SHE HAS SEVERAL FAMILY MEMBERS THAT ARE COVID POSITIVE RIGHT NOW. PT REPORTS SHE TESTED NEGATIVE 3 DAYS AGO. Source: patient Exam Limitations: no limitations History of Present Illness Date Seen by Provider: Jul 31, 2021 Time Seen by Provider: 11:05 Initial Comments Patient is a 40-year-old female presents ED with flulike symptoms. Symptoms over the past 4 to 5 days. Patient states she has been running a low-grade fever as high as 101. She denies taking medications at home. She reports body aches, fatigue, generalized weakness. Intermittent nausea with episodes of vomiting and diarrhea. She states she is tolerating p.o. fluids. She reports runny nose and cough with sore throat. She states family members tested positive for Covid and strep. She states she had a negative Covid swab and influenza 3 days ago. She denies abdominal pain, chest pain, headache, neck pain, back pain. Patient hypertensive here in the ED. She has not taken her Norvasc this morning. She states she typically runs pretty high. Requesting a dose of her Norvasc 5mg here in the ED Allergies and Home Medications Allergies Coded Allergies: lisinopril (Verified Allergy, Severe, COUGH, 12/29/20) Patient Home Medication List Home Medication List Reviewed: Yes Acetaminophen (Tylenol Extra Strength) 500 Mg Tablet, 1,000 MG PO Q8H PRN for PAIN-MILD (1-4), (Reported) Entered as Reported by: SRINI DAVIS on 12/29/20 1039 Amlodipine Besylate (Amlodipine Besylate) 5 Mg Tablet, 5 MG PO 1015 Prescribed by: JOSH SAL on 12/29/20 1142 Atorvastatin Calcium (Atorvastatin Calcium) 10 Mg Tablet, 10 MG PO HS, (Reported) Entered as Reported by: MASOOD VILLAVICENCIO on 09/30/20 1237 Canagliflozin (Invokana) 300 Mg Tablet, 300 MG PO DAILY, (Reported) Entered as Reported by: MASOOD VILLAVICENCIO on 09/30/20 1237 Furosemide (Furosemide) 40 Mg Tablet, 40 MG PO BID PRN for WATER RETENTION, (Reported) Entered as Reported by: MASOOD VILLAVICENCIO on 09/30/20 1237 Ibuprofen (Ibuprofen) 200 Mg Tablet, 600 MG PO Q6H PRN for PAIN-MILD (1-4), (Reported) Entered as Reported by: SRINI DAVIS on 12/29/20 1039 Insulin Glargine,Hum.rec.anlog (Lantus Solostar) 100 Unit/1 Ml Insuln.pen, 50 UNITS SQ BID, (Reported) Entered as Reported by: SRINI DAVIS on 12/29/20 1039 Insulin Lispro (Humalog Kwikpen) 100 Unit/1 Ml Insuln.pen, 25 UNITS SQ TIDAC, (Reported) Entered as Reported by: SRINI DAVIS on 12/29/20 1039 Linaclotide (Linzess) 145 Mcg Capsule, 145 MCG PO DAILY, (Reported) Entered as Reported by: MASOOD VILLAVICENCIO on 09/30/20 1237 Liraglutide (Victoza 2-Jayme) 0.6 Mg/0.1 Ml Pen.injctr, 1.8 MG SQ DAILY, (Reported) Entered as Reported by: MASOOD VILLAVICENCIO on 09/30/20 1237 Pantoprazole Sodium (Pantoprazole Sodium) 40 Mg Tablet.dr, 40 MG PO DAILY, (Reported) Entered as Reported by: SRINI DAVIS on 12/29/20 103 Potassium Chloride (Potassium Chloride) 10 Meq Tab.er.prt, 20 MEQ PO DAILY, (Reported) Entered as Reported by: MASOOD VILLAVICENCIO on 09/30/20 1237 Review of Systems Review of Systems Constitutional: chills; No diaphoresis; fever, malaise, weakness EENTM: nose congestion, throat pain Respiratory: cough; No short of breath, No wheezing Cardiovascular: No chest pain, No palpitations Gastrointestinal: No abdominal pain; diarrhea, nausea Musculoskeletal: No back pain, No joint pain Skin: No change in color, No change in hair/nails All Other Systems Reviewed Negative Unless Noted: Yes Past Aoowjab-Nyxfud-Nvsgaj Hx Patient Social History Tobacco Use?: No Substance use?: No Alcohol Use?: No Pt feels they are or have been: No Immunizations Up To Date First/Initial COVID19 Vaccinat: MODERNA Second COVID19 Vaccination Jose: MODERNA 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: 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 Seasonal Allergies Seasonal Allergies: No Past Medical History Surgery/Hospitalization HX: PMH: DM, HTN, HIGH CHOL Surgeries: Yes (CYST ) Section, Gallbladder, Tubal Ligation Respiratory: Yes Asthma, Chronic Bronchitis Cardiac: No High Cholesterol, Hypertension 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: No PATIENT SVCS MGR History: Tubal Ligation Genitourinary: No UTI-Chronic Gastrointestinal: No Gastroesophageal Reflux, Polyps Musculoskeletal: No Endocrine: Yes Diabetes, Insulin dep HEENT: No (RETINA RUPYURE) Cancer: No Psychosocial: No Integumentary: No Blood Disorders: No Physical Exam Vital Signs - First Documented 07/31/21 10:50 Temp 35.6 Pulse 88 Resp 16 B/P (MAP) 192/112 (138) Pulse Ox 100 Capillary Refill : Less Than 3 Seconds Height: 5'2.00" Weight: 210lbs. oz. 95.043633vj; 46.00 BMI Method:Stated General Appearance: WD/WN, no apparent distress Eyes: Bilateral Eye Normal Inspection, Bilateral Eye PERRL, Bilateral Eye EOMI HEENT: PERRL/EOMI, normal ENT inspection, TMs normal, pharynx normal Neck: non-tender, full range of motion, supple Respiratory: chest non-tender, lungs clear, normal breath sounds, no respiratory distress Cardiovascular: regular rate, rhythm, no edema, no gallop, no JVD, no murmur Gastrointestinal: normal bowel sounds, non tender, soft, no organomegaly, no pulsatile mass Extremities: normal range of motion, non-tender, normal inspection Neurologic/Psychiatric: 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 as tested, no motor/sensory deficits, alert, normal mood/affect, oriented x 3 Skin: normal color, warm/dry Lymphatic: no adenopathy Progress/Results/Core Measures Suspected Sepsis SIRS Temperature: Pulse: 88 Respiratory Rate: 16 Blood Pressure 192 /112 Mean: 138 Results/Orders Lab Results Laboratory Tests Test 07/31/21 10:56 07/31/21 11:00 07/31/21 11:40 Range/Units SARS-CoV-2 RNA (RT-PCR) Positive H Negative Group A Streptococcus Screen NEGATIVE NEGATIVE Influenza Type A Antigen NEGATIVE NEGATIVE Influenza Type B Antigen NEGATIVE NEGATIVE Glucometer 92 70-110 MG/DL My Orders Orders - YAZMIN FELIPE Covid 19 Inhouse Test (07/31/21 10:56) Rapid Strep A Screen (07/31/21 10:56) Influenza A & B Antigens (07/31/21 11:00) Amlodipine Tablet (Norvasc Tablet) (07/31/21 11:15) Accucheck Stat ONCE (07/31/21 11:36) Medications Given in ED Current Medications Medications Dose Ordered Sig/Christopher Route Start Time Stop Time Status Last Admin Dose Admin Amlodipine Besylate 5 mg ONCE ONCE PO 07/31/21 11:15 07/31/21 11:16 DC 07/31/21 11:10 5 MG Vital Signs/I&O 07/31/21 07/31/21 10:50 11:54 Temp 35.6 Pulse 88 89 Resp 16 18 B/P (MAP) 192/112 (138) 218/126 Pulse Ox 100 98 Capillary Refill : Less Than 3 Seconds Blood Pressure Mean: 138 Departure Communication (Admissions) Patient presents ED with flulike symptoms. Symptoms over the past 4 to 5 days. Patient tested positive for Covid here. She is not tachycardic or hypoxic. Afebrile. Patient is hypertensive here. She has not taken her Norvasc today. She was given a dose here in the ED 5mg. Typically her blood pressure runs 180- 190 systolic according to the patient. I do not have any Recent visits to compare that this blood pressure. She refused any further treatment at this time. Discussed complications secondary to elevated blood pressure such as stroke, cardiac event. Patient acknowledges. She states she will continue monitoring and follow-up with her primary care physician. Patient has no chest pain, abdominal pain. She reports cough. Lung sounds clear bilateral. No wheezing. Patient does not appear in acute distress. She is tolerating p.o. fluids at home. Recommend continue staying hydrated. Continue monitoring blood pressure. Provided work note. Provided outpatient resources for monoclonal antibody infusion. Patient recommended to monitor oxygen level with pulse ox. If any worsening or change in symptoms she will need to return back to ED for further evaluation such as shortness of breath, hypoxia, worsening weakness, headache, chest pain which could be secondary to the blood pressure. Could be elevated secondary to the infection and crying Impression Primary Impression: COVID-19 Additional Impression: Hypertension Disposition: 01 HOME, SELF-CARE Condition: Stable Departure-Patient Inst. Decision time for Depature: 11:38 Referrals: [facility] (PCP/Family) Primary Care Physician Patient Instructions: COVID-19 (DC) Add. Discharge Instructions: Need to continue hydrating at home. Continue monitoring your blood pressure. Follow-up with your PCP regarding your blood pressure. All discharge instructions reviewed with patient and/or family. Voiced understanding. Work/School Note: Family Work Note, Work Release Form Date Seen in the Emergency Department: Jul 31, 2021 Return to Work: Aug 08, 2021 YAZMIN FELIPE Jul 31, 2021 11:08
[2021-07-31] MEDS ORDERED: amLODIPine 5 MG (NORVASC) TAB PO ONE (11:15)
[2021-07-31 11:54] VITALS: BP 218/126
== END 2021-07-31 11:53 | disposition home or self-care (01) ==
LOC: EDUNIT# 10:35 → ER 10:37
DX: U07.1 COVID-19 (principal); I10 Essential (primary) hypertension; E78.00 Pure hypercholesterolemia, unspecified; E11.9 Type 2 diabetes mellitus without complications; K21.9 Gastro-esophageal reflux disease without esophagitis; Z79.4 Long term (current) use of insulin; Z79.899 Other long term (current) drug therapy
CPT/HCPCS: 82947; 87430; 87636; 87804

== ENCOUNTER 2021-08-15 07:58 | Emergency (ER) | payer OTHER ==
[~2021-08-15] VITALS: Ht 157 cm; Wt 118.0 kg
[2021-08-15] MEDS ORDERED: ASPIRIN 81 MG CHEW (CHILDREN'S ASA) PO ONE (08:45)
--- NOTE | 2021-08-15 08:51 | ED Chest Pain ---
General Chief Complaint: Chest Pain Stated Complaint: CP,SOB Nursing Triage Note: ARRIVED VIA AMB TO ROOM 06. STATES SHE WAS SENT OVER FROM [facility] WITH CHEST PIAN. ALSO COMPLAINS OF SOA, SWOLLEN LEGS, AND THE TOPS OF HER FEET BEING PURPLE. Source: patient Exam Limitations: no limitations (AMAURY CHAVEZ STUDENT) History of Present Illness Date Seen by Provider: Aug 15, 2021 Time Seen by Provider: 08:30 Initial Comments Patient is a 40yoF with history of DM and severe HTN who presents with cc of sharp chest pain rated 8/10 that began ~0430 today as patient was getting up for work. She has associated shortness of breath and the pain is worsened by deep breathing but physical activity has no effect. She is markedly edematous in b/l LE which she says is a chronic problem that has gotten much worse. The pedal edema is causing pain in the top of both feet. She also complains of suprapubic tenderness and dysuria for the last couple of days and believes she has a bladder infection. Patient was diagnosed with CKD stage 4 and had her first nephrology appointment 08/10/21. She was told that her kidneys function at 20% capacity and that she will require dialysis or transplant if function dips below 15%. She states that she has had Covid twice, the first time in May 2020 and the last illness was diagnosed here on 07/31/21. She was previously vaccinated with Moderna. Patient denies diaphoresis, N/V and reports mild diarrhea. She has no history of DVT or family cardiac history although states that her brother of a blood clot post-Covid. She is resting comfortably O2 100%. She is not tachycardic or tachypneic and EKG is negative. Timing/Duration: 4-6 hours Severity/Quality: moderate, sharp Location: substernal Prior CP/Workup: no prior cardiac workup Modifying Factors: improves with breathing Associated Symptoms: No diaphoresis, No dizziness; edema; No fever/chills, No headache, No heartburn, No nausea/vomiting; shortness of breath; No syncope (AMAURY CHAVEZ STUDENT) Allergies and Home Medications Allergies Coded Allergies: lisinopril (Verified Allergy, Severe, COUGH, 12/29/20) Patient Home Medication List Home Medication List Reviewed: Yes (REBEKAH COLEMAN MD) Acetaminophen (Tylenol Extra Strength) 500 Mg Tablet, 1,000 MG PO Q8H PRN for PAIN-MILD (1-4), (Reported) Entered as Reported by: SRINI DAVIS on 12/29/20 1039 Amlodipine Besylate (Amlodipine Besylate) 5 Mg Tablet, 5 MG PO 1015 Prescribed by: JOSH SAL on 12/29/20 1142 Atorvastatin Calcium (Atorvastatin Calcium) 10 Mg Tablet, 10 MG PO HS, (Reported) Entered as Reported by: MASOOD VILLAVICENCIO on 09/30/20 1237 Canagliflozin (Invokana) 300 Mg Tablet, 300 MG PO DAILY, (Reported) Entered as Reported by: MASOOD VILLAVICENCIO on 09/30/20 1237 Furosemide (Furosemide) 40 Mg Tablet, 40 MG PO BID PRN for WATER RETENTION, (Reported) Entered as Reported by: MASOOD VILLAVICENCIO on 09/30/20 1237 Ibuprofen (Ibuprofen) 200 Mg Tablet, 600 MG PO Q6H PRN for PAIN-MILD (1-4), (Reported) Entered as Reported by: SRINI DAVIS on 12/29/20 103 Insulin Glargine,Hum.rec.anlog (Lantus Solostar) 100 Unit/1 Ml Insuln.pen, 50 UNITS SQ BID, (Reported) Entered as Reported by: SRINI DAVIS on 12/29/20 1039 Insulin Lispro (Humalog Kwikpen) 100 Unit/1 Ml Insuln.pen, 25 UNITS SQ TIDAC, (Reported) Entered as Reported by: SRINI DAVIS on 12/29/20 103 Linaclotide (Linzess) 145 Mcg Capsule, 145 MCG PO DAILY, (Reported) Entered as Reported by: MASOOD VILLAVICENCIO on 09/30/20 1237 Liraglutide (Victoza 2-Jayme) 0.6 Mg/0.1 Ml Pen.injctr, 1.8 MG SQ DAILY, (Reported) Entered as Reported by: MASOOD VILLAVICENCIO on 09/30/20 123 Pantoprazole Sodium (Pantoprazole Sodium) 40 Mg Tablet.dr, 40 MG PO DAILY, (Reported) Entered as Reported by: SRINI DAVIS on 12/29/20 1039 Potassium Chloride (Potassium Chloride) 10 Meq Tab.er.prt, 20 MEQ PO DAILY, (Reported) Entered as Reported by: MASOOD VILLAVICENCIO on 09/30/20 1237 Rivaroxaban (Xarelto) 15 Mg Tablet, 15 MG PO BID WITH MEALS Prescribed by: REBEKAH COLEMAN on 08/15/21 1155 Review of Systems Review of Systems Constitutional: No chills, No diaphoresis, No fever, No malaise EENTM: Blurred Vision; No Nose Congestion, No Throat Pain Respiratory: Denies Cough; Shortness of Air; Denies Wheezing Cardiovascular: Chest Pain, Edema; Denies Palpitations, Denies Syncope Gastrointestinal: Denies Blood Streaked Stools; Diarrhea; Denies Difficulty Swallowing, Denies Nausea, Denies Vomiting Genitourinary: Burning, Frequency; Denies Flank Pain, Denies Hematuria Musculoskeletal: No muscle pain, No muscle weakness Skin: no symptoms reported Psychiatric/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: No Symptoms Reported Endocrine: No Symptoms Reported; Denies Increased Urine Hematologic/Lymphatic: Denies Easy Bruising (ARIASpring MetricsLIANETRopatec STUDENT) Past Ozjudkx-Qqlahd-Iyndjt Hx Patient Social History Tobacco Use?: No Substance use?: No Alcohol Use?: No (ARIAVeekerKatharinaKelDoc) Immunizations Up To Date First/Initial COVID19 Vaccinat: MODERNA Second COVID19 Vaccination Jose: 03/14 COVID19 Vaccine Lamp Shade Maker: MODERNA ([employer]) Seasonal Allergies Seasonal Allergies: No ([employer]) Past Medical History Surgery/Hospitalization HX: PMH: DM, HTN, HIGH CHOL Surgeries: Yes (CYST ) Section, Gallbladder, Tubal Ligation Respiratory: Yes Asthma, Chronic Bronchitis Cardiac: No High Cholesterol, Hypertension 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 oz. 95.202264ek; 47.00 BMI Method:Stated General Appearance: No Apparent Distress, Obese HEENT: PERRL/EOMI, Pharynx Normal, Moist Mucous Membranes; No Pharyngeal Erythema Neck: Full Range of Motion, Normal Inspection, Non Tender, Supple Respiratory: Chest Non Tender, Lungs Clear, Normal Breath Sounds, No Accessory Muscle Use, No Respiratory Distress Cardiovascular: Regular Rate, Rhythm, No JVD, No Murmur, Normal Peripheral Pulses Gastrointestinal: Normal Bowel Sounds, No Organomegaly, Soft, Other (suprapubic tenderness) Extremity: Normal Capillary Refill, Normal Range of Motion, No Calf Tenderness, Pedal Edema, Swelling Neurologic/Psychiatric: Alert, Oriented x3, No Motor/Sensory Deficits, Normal Mood/Affect, counterintelligence agent II-XII Norm as Tested Skin: Normal Color, Warm/Dry Lymphatic: No Adenopathy (AMAURY CHAVEZ STUDENT) Progress/Results/Core Measures Results/Orders Lab Results Laboratory Tests Test 08/15/21 09:53 08/15/21 10:41 08/15/21 11:23 08/15/21 12:16 Range/Units White Blood Count 9.6 4.3-11.0 10^3/uL Red Blood Count 3.87 3.80-5.11 10^6/uL Hemoglobin 9.0 L 11.5-16.0 g/dL Hematocrit 32 L 35-52 % Mean Corpuscular Volume 82 80-99 fL Mean Corpuscular Hemoglobin 23 L 25-34 pg Mean Corpuscular Hemoglobin Concent 29 L 32-36 g/dL Red Cell Distribution Width 14.4 10.0-14.5 % Platelet Count 343 130-400 10^3/uL Mean Platelet Volume 9.4 9.0-12.2 fL Immature Granulocyte % (Auto) 0 % Neutrophils (%) (Auto) 63 42-75 % Lymphocytes (%) (Auto) 24 12-44 % Monocytes (%) (Auto) 9 0-12 % Eosinophils (%) (Auto) 3 0-10 % Basophils (%) (Auto) 1 0-10 % Neutrophils # (Auto) 6.0 1.8-7.8 10^3/uL Lymphocytes # (Auto) 2.3 1.0-4.0 10^3/uL Monocytes # (Auto) 0.9 0.0-1.0 10^3/uL Eosinophils # (Auto) 0.3 0.0-0.3 10^3/uL Basophils # (Auto) 0.1 0.0-0.1 10^3/uL Immature Granulocyte # (Auto) 0.0 0.0-0.1 10^3/uL D-Dimer 1.53 H 0.00-0.49 UG/ML Sodium Level 137 135-145 MMOL/L Potassium Level 4.7 3.6-5.0 MMOL/L Chloride Level 113 H 98-107 MMOL/L Carbon Dioxide Level 16 L 21-32 MMOL/L Anion Gap 8 5-14 MMOL/L Blood Urea Nitrogen 28 H 7-18 MG/DL Creatinine 2.47 H 0.60-1.30 MG/DL Estimat Glomerular Filtration Rate 24 BUN/Creatinine Ratio 11 Glucose Level 62 L 70-105 MG/DL Calcium Level 8.7 8.5-10.1 MG/DL Corrected Calcium 9.8 8.5-10.1 MG/DL Total Bilirubin 0.2 0.1-1.0 MG/DL Aspartate Amino Transf (AST/SGOT) 15 5-34 U/L Alanine Aminotransferase (ALT/SGPT) 8 0-55 U/L Alkaline Phosphatase 114 40-136 U/L Total Creatine Kinase 191 H 29-168 U/L Troponin I < 0.028 < 0.028 <0.028 NG/ML Total Protein 5.7 L 6.4-8.2 GM/DL Albumin 2.6 L 3.2-4.5 GM/DL Serum Test, Qualitative NEGATIVE NEGATIVE Glucometer 53 *L 66 L 70-110 MG/DL (REBEKAH COLEMAN MD) My Orders Orders - REBEKAH COLEMAN MD Ed Iv/Invasive Line Start (08/15/21 08:41) Cbc With Automated Diff (08/15/21 08:41) Comprehensive Metabolic Panel (08/15/21 08:41) Creatine Kinase (08/15/21 08:41) Troponin I [place] (08/15/21 08:41) Ekg Tracing (08/15/21 08:41) Fibrin Degradation Products (08/15/21 08:41) Chest 1 View, Ap/Pa Only (08/15/21 08:41) Hcg,Qualitative Serum (08/15/21 08:41) Aspirin Chewable Tablet (Baby Aspirin Ch (08/15/21 08:45) Troponin I [place] (08/15/21 11:37) Rivaroxaban Tablet (Xarelto Tablet) (08/15/21 12:15) (REBEKAH COLEMAN MD) Medications Given in ED (REBEKAH COLEMAN MD) Vital Signs/I&O 08/15/21 08/15/21 08:00 13:17 Temp 36.3 Pulse 87 86 Resp 16 16 B/P (MAP) 148/85 (106) 158/83 Pulse Ox 100 99 O2 Delivery Room Air Room Air (REBEKAH COLEMAN MD) Blood Pressure Mean: 106 Progress Progress Note #1: Time: 11:32 Progress Note Had a long discussion with the patient regarding risk of elevated D-dimer with shortness of breath, pleuritic chest pain in the setting of normal chest x-ray, normal EKG, normal troponin. Patient is post-COVID but only about 1 week to 10 days. She has a brother who from a blood clot related to COVID infection. I think it is in the best interest of the patient to go ahead and put her on anticoagulation pending VQ scan to further evaluate for pulmonary embolism. We will go ahead and ultrasound her both her legs on Tuesday as well. After review of the medical literature, the patient can be safely started on 15 mg of Xarelto twice daily for 21 days in the standard regimen followed by 20 mg daily if need be. Her creatinine clearance is 55 as calculated by me and review of the literature supports not having to renally adjust the dose. At this level. Discussed with Dr. Nahomy Dangelo, patient's dog hair clipper - she is agreeable to anti-coagulation. Will go ahead and start her on it today, and schedule her for a VQ scan on Tuesday with bilateral LE dopplers. Case discussed with the cap and hat production supervisor. She is coordinating tests for Tuesday and discussing with patient. Patient's VS are stable. Pain is improved after aspirin. Return precautions discussed. Progress Note #2: Time: 13:06 Progress Note second troponin negatvie. Will send home. (REBEKAH COLEMAN MD) Initial ECG Impression Date: Aug 15, 2021 Initial ECG Impression Time: 08:08 Initial ECG Rate: 79 Initial ECG Rhythm: Normal Sinus Initial ECG Intervals: Normal Initial ECG Impression: Normal Initial ECG Comparisson: No Previous ECG Available (REBEKAH COLEMAN MD) Diagnostic Imaging Diagonstic Imaging: Xray Comments [facility] [place], [place] NAME: JT RENDON REC#: [id number] PT STATUS: REG ER : 1980 PHYSICIAN: REBEKAH COLEMAN MD ADMIT DATE: 08/15/21/ER Draft Date of Exam:08/15/21 CHEST 1 VIEW, AP/PA ONLY INDICATION: Chest pain and shortness of breath. TIME OF EXAM: 9:36 AM COMPARISON is made with prior chest 12/27/2020. FINDINGS: The heart size is normal. The pulmonary vascularity is unremarkable. The lungs are clear. No infiltrate, effusion or pneumothorax is detected. IMPRESSION: No acute cardiopulmonary process is detected. Dictated on workstation # [id number] Dict: 08/15/21 0933 Trans: 08/15/21 0937 [facility] [id number] Interpreted by: ROXANA LIRIANO MD Electronically signed by: (REBEKAH COLEMAN MD) Departure Impression Primary Impression: Pleuritic chest pain Additional Impressions: Elevated d-dimer Chronic kidney disease Qualified Codes: N18.9 - Chronic kidney disease, unspecified Disposition: 01 HOME, SELF-CARE Condition: Stable Departure-Patient Inst. Decision time for Depature: 11:47 (REBEKAH COLEMAN MD) Referrals: [facility] (PCP) Primary Care Physician ALYSSA REYNOLDS (Family) Primary Care Physician Patient Instructions: Pleuritic Chest Pain (DC) Add. Discharge Instructions: COntinue your daily medications as prescribed. Take the Xarelto 15mg, twice a day with food - this is a blood thinning medication, you will need to be on this until we get the VQ scan and ultrasounds of your legs done as the Nursing Criminalist Technician talked to you about. Be sure and take the Xarelto *with food*. Come back to the ER if you have a return of chest pain especially with worsening shortness of breath, fever, or other emergent concerns. Take tylenol extra strength as needed for pain - 2 tablets every 6 hours. Follow up next week as well with [facility]. You have your next Kidney Doctor appointment on 09/10 at 3:30pm. Scripts Rivaroxaban (Xarelto) 15 Mg Tablet 15 MG PO BID WITH MEALS for 14 Days, #28 TAB Prov: REBEKAH COLEMAN MD 08/15/21 Verification and Attestation of Medical Student E/M Service A medical student performed and documented this service in my presence. I reviewed and verified all information documented by the medical student and made modifications to such information, when appropriate. I personally performed the physical exam and medical decision making. Rebekah Coleman, Aug 15, 2021,13:06 (REBEKAH COLEMAN MD) AMAURY CHAVEZ MED STUDENT Aug 15, 2021 08:51 REBEKAH COLEMAN MD Aug 15, 2021 09:57
--- NOTE | 2021-08-15 09:38 | Diagnostic Imaging Report ---
INDICATION: Chest pain and shortness of breath. TIME OF EXAM: 9:36 AM COMPARISON is made with prior chest 12/27/2020. FINDINGS: The heart size is normal. The pulmonary vascularity is unremarkable. The lungs are clear. No infiltrate, effusion or pneumothorax is detected. IMPRESSION: No acute cardiopulmonary process is detected. Dictated by: Dictated on workstation # [id number]
[2021-08-15 09:59] LABS: BASOPHILS # (AUTO) 0.1 10^3/uL (0.0-0.1); BASOPHILS % (AUTO) 1 % (0-10); EOSINOPHILS # (AUTO) 0.3 10^3/uL (0.0-0.3); EOSINOPHILS % (AUTO) 3 % (0-10); HEMATOCRIT 32 % (35-52); LYMPHOCYTES # (AUTO) 2.3 10^3/uL (1.0-4.0); LYMPHOCYTES % (AUTO) 24 % (12-44); MEAN CORPUSCULAR HEMOGLOBIN 23 pg (25-34); MEAN CORPUSCULAR HGB CONC 29 g/dL (32-36); MEAN CORPUSCULAR VOLUME 82 fL (80-99); MEAN PLATELET VOLUME 9.4 fL (9.0-12.2); MONOCYTES # (AUTO) 0.9 10^3/uL (0.0-1.0); MONOCYTES % (AUTO) 9 % (0-12); NEUTROPHILS % (AUTO) 63 % (42-75); PLATELET COUNT 343 10^3/uL (130-400); WHITE BLOOD COUNT 9.6 10^3/uL (4.3-11.0)
[2021-08-15 10:11] LABS: ALBUMIN 2.6 GM/DL (3.2-4.5); CHLORIDE 113 MMOL/L (98-107); POTASSIUM 4.7 MMOL/L (3.6-5.0); SODIUM 137 MMOL/L (135-145)
[2021-08-15 10:12] LABS: CALCIUM 8.7 MG/DL (8.5-10.1)
[2021-08-15 10:13] LABS: GLUCOSE 62 MG/DL (70-105)
[2021-08-15 10:14] LABS: TOTAL PROTEIN 5.7 GM/DL (6.4-8.2)
[2021-08-15 10:15] LABS: BILIRUBIN,TOTAL 0.2 MG/DL (0.1-1.0); CARBON DIOXIDE 16 MMOL/L (21-32)
[2021-08-15 10:17] LABS: ALKALINE PHOSPHATASE 114 U/L (40-136); CREATININE SERUM 2.47 MG/DL (0.60-1.30); GFR ESTIMATED 24
[2021-08-15 10:18] LABS: BUN/CREATININE RATIO 11
[2021-08-15 10:20] LABS: ALANINE AMINOTRANSFERASE 8 U/L (0-55); CREATINE KINASE 191 U/L (29-168)
[2021-08-15] MEDS ORDERED: RIVA15TA PO (11:55)
[2021-08-15] MEDS ORDERED: RIVAROXABAN 15 MG TABLET (XARELTO) PO ONE (12:15)
[2021-08-15 13:17] VITALS: BP 158/83
== END 2021-08-15 13:17 | disposition home or self-care (01) ==
LOC: EDUNIT# 07:58 → ER 08:00
DX: R07.81 Pleurodynia (principal); R79.89 Other specified abnormal findings of blood chemistry; I12.9 Hypertensive chronic kidney disease with stage 1 through stage 4 chronic kidney disease, or unspecified chronic kidney disease; E11.22 Type 2 diabetes mellitus with diabetic chronic kidney disease; N18.4 Chronic kidney disease, stage 4 (severe); J45.909 Unspecified asthma, uncomplicated; E78.00 Pure hypercholesterolemia, unspecified; E66.9 Obesity, unspecified; K21.9 Gastro-esophageal reflux disease without esophagitis; Z68.42 Body mass index [BMI] 45.0-49.9, adult; Z79.4 Long term (current) use of insulin; Z79.899 Other long term (current) drug therapy
CPT/HCPCS: 36415; 71045; 80053; 82550; 82947; 84484; 84703; 85025; 85379; 93005

== ENCOUNTER → 2021-08-17 | Outpatient (CLI) | payer OTHER ==
[~2021-08-17] MED LIST changes: +CATHETER FLUSH 10 ML SYR IV PRN; +RIVA15TA PO
--- NOTE | 2021-08-17 10:32 | Diagnostic Imaging Report ---
INDICATION: Shortness of breath, chest pain and elevated D-dimer. Patient was given 5.0 mCi technetium 99m MAA intravenously and imaging over the chest was performed in multiple obliquities. There is homogeneous perfusion of both lungs. No pleural-based perfusion defects are seen. IMPRESSION: Normal perfusion lung scan. Dictated by: Dictated on workstation # [id number]
--- NOTE | 2021-08-17 11:25 | Diagnostic Imaging Report ---
PROCEDURE: US Venous Lower Ext Mick. TECHNIQUE: Multiple real-time grayscale images were obtained over the lower extremities in various projections, bilaterally. Additional duplex Doppler and color Doppler images were also obtained. INDICATION: Shortness of breath and chest pain as well as elevated D-dimer. There is no evidence of right or left lower extremity DVT. Both lower extremity venous system shows normal compressibility with normal response to augmentation and Valsalva. No fluid collection or mass is detected. Calf veins were somewhat difficult to visualize. IMPRESSION: No evidence of right or left lower extremity DVT. Dictated by: Dictated on workstation # [id number]
== END ==
LOC: CARD 09:00
PROVIDERS: ATTEND Emergency Medicine
DX: R06.02 Shortness of breath (principal); R07.9 Chest pain, unspecified; R79.1 Abnormal coagulation profile; N18.9 Chronic kidney disease, unspecified
CPT/HCPCS: 78580; 93970; A9540

== ENCOUNTER → 2021-08-19 | Outpatient (CLI) | payer OTHER ==
[~2021-08-19] MED LIST changes: -CATHETER FLUSH 10 ML SYR IV PRN
--- NOTE | 2021-08-19 16:44 | Diagnostic Imaging Report ---
INDICATION: Chronic renal disease TECHNIQUE: Multiple real-time grayscale sonographic images were obtained of the kidneys. CORRELATION: None FINDINGS: RIGHT KIDNEY: 11.2 x 4.6 x 5.1 cm. There is normal echotexture of the right renal parenchyma. No definitive calcification or hydronephrosis. LEFT KIDNEY: 11.5 x 4.8 x 4.3 cm. There is normal echotexture of the left renal parenchyma. No definitive calcification or hydronephrosis. URINARY BLADDER: There is visualization of the left ureteral jet, nonvisualized right ureteral jet. Urinary bladder appearing unremarkable. Prevoid Volume: 276 mL. Postvoid Volume: 20 mL. IMPRESSION: 1. Unremarkable renal sonogram. Dictated by: Dictated on workstation # [id number]
== END ==
LOC: RAD 15:15
PROVIDERS: ATTEND Nurse Practitioner
DX: N18.4 Chronic kidney disease, stage 4 (severe) (principal)
CPT/HCPCS: 76770

== ENCOUNTER 2021-09-20 12:30 | Emergency (ER) | payer OTHER ==
--- NOTE | 2021-09-20 13:20 | ED Back Pain ---
General Chief Complaint: Back Problems Stated Complaint: HX RENAL FAILURE/BLOOD IN URINE Source of Information: Patient Exam Limitations: No Limitations (MISTY TRAN MED STUDENT) History of Present Illness Date Seen by Provider: Sep 20, 2021 Time Seen by Provider: 13:11 Initial Comments Mrs. Coates is a 40yo female with PMH of anemia, endometrial ablation, and statge 4 kidney failure that presents to ED due to concern for blood in her urine. She states that for the last 2 days shes had some back pain in the flank area that she would rate about an 8. She also states that when she urinates there is blood in the toilet she thought was from her urine. Talking with her further she has a history of endometrial ablation with Dr. Spann from last november and has had intermittent bleeding and irregular periods since. She is having to wear a pad to catch the blood and there is blood on the pad between urinations that seem more likely to be vaginal bleeding but she isn't sure exactly where its coming from. She also states she has some pain with urination and increased swelling in legs. She recently had HGB checked on the and said it was low but doesn't remember the value. (MISTY TRAN MED STUDENT) Initial Comments Patient complains of radicular pain down her right leg when the pain comes in "spasms". She is not taking any medications for the pain, as she did not know what was safe with her kidney disease. No F/C/n/v. normal BM. also complains of vaginal bleeding with intercourse. No follow up with Dr Spann since the ablation. (REBEKAH COLEMAN MD) Allergies and Home Medications Allergies Coded Allergies: lisinopril (Verified Allergy, Severe, COUGH, 12/29/20) Patient Home Medication List Home Medication List Reviewed: Yes (REBEKAH COLEMAN MD) Acetaminophen (Tylenol Extra Strength) 500 Mg Tablet, 1,000 MG PO Q8H PRN for PAIN-MILD (1-4), (Reported) Entered as Reported by: SRINI DAVIS on 12/29/20 1039 Amlodipine Besylate (Amlodipine Besylate) 5 Mg Tablet, 5 MG PO 1015 Prescribed by: JOSH SAL on 12/29/20 1142 Atorvastatin Calcium (Atorvastatin Calcium) 10 Mg Tablet, 10 MG PO HS, (Repo rted) Entered as Reported by: MASOOD VILLAVICENCIO on 09/30/20 1237 Canagliflozin (Invokana) 300 Mg Tablet, 300 MG PO DAILY, (Reported) Entered as Reported by: MASOOD VILLAVICENCIO on 09/30/20 1237 Cephalexin (Cephalexin) 500 Mg Tablet, 500 MG PO TID Prescribed by: REBEKAH COLEMAN on 09/20/21 1442 Furosemide (Furosemide) 40 Mg Tablet, 40 MG PO BID PRN for WATER RETENTION, (Reported) Entered as Reported by: MASOOD VILLAVICENCIO on 09/30/20 123 Ibuprofen (Ibuprofen) 200 Mg Tablet, 600 MG PO Q6H PRN for PAIN-MILD (1-4), (Reported) Entered as Reported by: SRINI DAVIS on 12/29/20 1039 Insulin Glargine,Hum.rec.anlog (Lantus Solostar) 100 Unit/1 Ml Insuln.pen, 50 UNITS SQ BID, (Reported) Entered as Reported by: SRINI DAVIS on 12/29/20 1039 Insulin Lispro (Humalog Kwikpen) 100 Unit/1 Ml Insuln.pen, 25 UNITS SQ TIDAC, (Reported) Entered as Reported by: SRINI DAVIS on 12/29/20 1039 Linaclotide (Linzess) 145 Mcg Capsule, 145 MCG PO DAILY, (Reported) Entered as Reported by: MASOOD VILLAVICENCIO on 09/30/20 123 Liraglutide (Victoza 2-Jayme) 0.6 Mg/0.1 Ml Pen.injctr, 1.8 MG SQ DAILY, (Reported) Entered as Reported by: MASOOD VILLAVICENCIO on 09/30/20 1237 Pantoprazole Sodium (Pantoprazole Sodium) 40 Mg Tablet.dr, 40 MG PO DAILY, (Reported) Entered as Reported by: SRINI DAVIS on 12/29/20 1039 Potassium Chloride (Potassium Chloride) 10 Meq Tab.er.prt, 20 MEQ PO DAILY, (Reported) Entered as Reported by: MASOOD VILLAVICENCIO on 09/30/20 1237 Rivaroxaban (Xarelto) 15 Mg Tablet, 15 MG PO BID WITH MEALS Prescribed by: REBEKAH COLEMAN on 08/15/21 1155 Review of Systems Constitutional: No chills, No fever EENTM: No blurred vision, No double vision Respiratory: No cough, No short of breath Cardiovascular: No chest pain; edema (increased in bilat legs); No palpitations Gastrointestinal: No abdominal pain, No constipation, No diarrhea, No melena, No nausea, No vomiting Genitourinary: dysuria, hematuria (Possibly), other (Possible bleeding from vagina) Musculoskeletal: back pain (R flank) Skin: No pruritus, No rash Psychiatric/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: Denies Headache, Denies Numbness (MISTY TRAN OnePageCRM STUDENT) Past Dmbihgo-Vwtuhp-Tmfnvd Hx Immunizations Up To Date First/Initial COVID19 Vaccinat: MODERNA Second COVID19 Vaccination Jose: 03/14 (MISTY TRAN [employer]Page[employer] STUDENT) Seasonal Allergies Seasonal Allergies: No (MISTY TRAN) Past Medical History Surgery/Hospitalization HX: PMH: DM, HTN, HIGH CHOL Surgeries: Yes ([facility] ) Section, Gallbladder, Tubal Ligation Respiratory: Yes Asthma, Chronic Bronchitis Cardiac: No High Cholesterol, Hypertension 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: No [employer] History: Tubal Ligation Genitourinary: No UTI-Chronic Gastrointestinal: No Gastroesophageal Reflux, Polyps Musculoskeletal: No Endocrine: Yes Diabetes, Insulin dep HEENT: No (RETINA RUPYURE) Cancer: No Psychosocial: No Integumentary: No Blood Disorders: No (MISTY TRAN [employer]Page[employer] STUDENT) Physical Exam Vital Signs Vital Signs - First Documented 09/20/21 15:01 Pulse 72 Resp 16 B/P (MAP) 136/68 Pulse Ox 100 (REBEKAH COLEMAN MD) Vital Signs Capillary Refill : (MISTY TRAN [employer]Page[employer] STUDENT) Height, Weight, BMI Height: 5'2.00" Weight: 210lbs. oz. 95.011532vt; 47.00 BMI Method:Stated General Appearance: No Apparent Distress, WD/WN, Obese HEENT: PERRL/EOMI, Pharynx Normal Cardiovascular: Regular Rate, Rhythm, No Murmur, Normal Peripheral Pulses Respiratory: Chest Non Tender, Lungs Clear, Normal Breath Sounds Peripheral Pulses: 2+ Radial Pulses (R), 2+ Radial Pulses (L) Gastrointestinal: Normal Bowel Sounds, Non Tender, Soft Back: Other (R side pain in flank area) Extremity: Non Tender, No Calf Tenderness, Pedal Edema Neurologic/Psychiatric: Alert, Oriented x3, Normal Mood/Affect Skin: Normal Color, Warm/Dry (MARC,MISTY MED STUDENT) Back: Normal Inspection, No CVA Tenderness, No Vertebral Tenderness; No Decreased Range of Motion (REBEKAH COLEMAN MD) Progress/Results/Core Measures Results/Orders Lab Results Laboratory Tests Test 09/20/21 13:03 09/20/21 13:20 09/20/21 14:14 Range/Units Urine Color RED H Urine Clarity BLOODY H Urine pH 5.0 5-9 Urine Specific [place] 1.015 L 1.016-1.022 Urine Protein 3+ H NEGATIVE Urine Glucose (UA) 2+ H NEGATIVE Urine Ketones TRACE H NEGATIVE Urine Nitrite POSITIVE H NEGATIVE Urine Bilirubin NEGATIVE NEGATIVE Urine Urobilinogen 2.0 < = 1.0 MG/DL Urine Leukocyte Esterase 1+ H NEGATIVE Urine RBC (Auto) 3+ H NEGATIVE Urine RBC TNTC H /HPF Urine WBC 0-2 /HPF Urine Squamous Epithelial Cells 0-2 /HPF Urine Crystals NONE /LPF Urine Bacteria NEGATIVE /HPF Urine Casts NONE /LPF Urine Mucus NEGATIVE /LPF Urine Culture Indicated YES White Blood Count 8.3 4.3-11.0 10^3/uL Red Blood Count 3.57 L 3.80-5.11 10^6/uL Hemoglobin 8.8 L 11.5-16.0 g/dL Hematocrit 29 L 35-52 % Mean Corpuscular Volume 81 80-99 fL Mean Corpuscular Hemoglobin 25 25-34 pg Mean Corpuscular Hemoglobin Concent 30 L 32-36 g/dL Red Cell Distribution Width 17.1 H 10.0-14.5 % Platelet Count 343 130-400 10^3/uL Mean Platelet Volume 9.6 9.0-12.2 fL Immature Granulocyte % (Auto) 1 % Neutrophils (%) (Auto) 62 42-75 % Lymphocytes (%) (Auto) 25 12-44 % Monocytes (%) (Auto) 8 0-12 % Eosinophils (%) (Auto) 4 0-10 % Basophils (%) (Auto) 1 0-10 % Neutrophils # (Auto) 5.2 1.8-7.8 10^3/uL Lymphocytes # (Auto) 2.1 1.0-4.0 10^3/uL Monocytes # (Auto) 0.6 0.0-1.0 10^3/uL Eosinophils # (Auto) 0.3 0.0-0.3 10^3/uL Basophils # (Auto) 0.0 0.0-0.1 10^3/uL Immature Granulocyte # (Auto) 0.1 0.0-0.1 10^3/uL Sodium Level 139 135-145 MMOL/L Potassium Level 4.5 3.6-5.0 MMOL/L Chloride Level 112 H 98-107 MMOL/L Carbon Dioxide Level 20 L 21-32 MMOL/L Anion Gap 7 5-14 MMOL/L Blood Urea Nitrogen 30 H 7-18 MG/DL Creatinine 2.82 H 0.60-1.30 MG/DL Estimat Glomerular Filtration Rate 21 BUN/Creatinine Ratio 11 Glucose Level 44 *L 70-105 MG/DL Calcium Level 9.0 8.5-10.1 MG/DL Serum Test, Qualitative NEGATIVE NEGATIVE Glucometer 81 70-110 MG/DL (REBEKAH COLEMAN MD) My Orders Orders - REBEKAH COLEMAN MD Ua Culture If Indicated (09/20/21 13:26) Cbc With Automated Diff (09/20/21 13:26) Basic Metabolic Panel (09/20/21 13:26) Hcg,Qualitative Serum (09/20/21 13:36) Ct Abd/Pelvis Wo(Kidney Stone) (09/20/21 13:36) Accucheck Stat ONCE (09/20/21 13:36) Ondansetron Injection (Zofran Injectio (09/20/21 13:45) D50w (Emergency) Syringe (Dextrose 50% 5 (09/20/21 13:45) D50w (Emergency) Syringe (Dextrose 50% 5 (09/20/21 13:42) Urine Culture (09/20/21 13:03) Acetaminophen Tablet (Tylenol Tablet) (09/20/21 14:45) (REBEKAH COLEMAN MD) Medications Given in ED (REBEKAH COLEMAN MD) Vital Signs/I&O 09/20/21 15:01 Pulse 72 Resp 16 B/P (MAP) 136/68 Pulse Ox 100 (REBEKAH COLEMAN MD) Progress Progress Note #1: Time: 13:42 Progress Note Blood sugar 44 - giving amp of D50 Progress Note #2: Time: 14:38 Progress Note Reviewed labs and imaging with the patient. Her GFR seems to be about what she was told it was a couple weeks ago. She does have hematuria with nitrite positive urine. No elevated white blood cell count. Her hemoglobin is relatively stable at 8.8. CT scan renal stone protocol does not show evidence of kidney stone, she does have a uterine fibroid of which she was aware. Her vital signs are stable. She is offered Tylenol. She tells me that her seam stay stitcher does not want her to have steroids therefore with the back pain and radiating pain down her right leg she is pretty much stuck with heat patches, lidocaine patches, Tylenol. I advised her to follow-up with her primary care physician at [facility]. She is comfortable with this plan of care. I advised her if she developed any fever or worsening abdominal pain or vomiting that she needs to come back to the emergency department or visit one of the hospitals in [place] where her nephrology team is. She has no clinical or objective findings at this time to warrant further study. All questions are sought and answered. PHYSICAL EXAMINATION: VITAL SIGNS: Reviewed. GENERAL: In no apparent distress. HEAD: No signs of head trauma. EYES: Pupils are equal. Extraocular motions intact. EARS: Hearing grossly intact. MOUTH: Oropharynx is normal. NECK: No adenopathy, no JVD. CHEST: Chest with clear breath sounds bilaterally. No wheezes, rales, or rhonchi. CARDIAC: Regular rate and rhythm. . VASCULAR: No Edema. ABDOMEN: Soft, without detectable tenderness. No sign of distention. No rebound or guarding, and no masses palpated. Bowel Sounds normal. MUSCULOSKELETAL: Good range of motion of all major joints. NEUROLOGIC EXAM: Alert and oriented x 3. No focal sensory or strength deficits. Speech normal. Follows commands. (REBEKAH COLEMAN MD) Diagnostic Imaging Diagonstic Imaging: CT Comments [facility], [place] NAME: JT COATES [facility] REC#: [id number] PT STATUS: REG ER : 1980 PHYSICIAN: REBEKAH COLEMAN MD ADMIT DATE: 09/20/21/ER Draft Date of Exam:09/20/21 CT ABD/PELVIS WO(KIDNEY STONE) EXAMINATION: CT abdomen and pelvis without contrast. TECHNIQUE: Multiple contiguous axial images were obtained through the abdomen and pelvis without the use of intravenous contrast. All CT scans use one or more of the following dose optimizing techniques: automated exposure control, MA and/or KvP adjustment based on patient size and exam type or iterative reconstruction. HISTORY: Flank pain COMPARISON: None available. FINDINGS: Limited views of the lower thorax are unremarkable. The liver is normal without focal lesion. There is no biliary ductal dilation. Gallbladder is surgically absent. Pancreas is normal. Spleen is normal. Adrenal glands are normal. The kidneys are normal. There is no hydronephrosis. Urinary bladder is normal. There are phleboliths in the pelvis. No ureteral stones are seen but the phleboliths make evaluation somewhat difficult. No periureteral stranding or renal stones. Bowel is normal in caliber without obstruction or inflammation. The appendix is normal. There is a 1.8 cm uterine fibroid. There is an abnormal contour of the uterine fundus likely related to a large fibroid. No free fluid or air. There are numerous retroperitoneal lymph nodes but they remain subcentimeter in short axis. Aorta is normal in caliber without aneurysm. There are no suspicious osseus lesions. IMPRESSION: 1. No renal or ureteral stones are seen. 2. Abnormal contour of the uterine fundus, likely related to a large fibroid. Dictated on workstation # [id number] Dict: 09/20/21 1405 Trans: 09/20/21 1412 [facility] [id number] Interpreted by: ASHOK QUEVEDO MD Electronically signed by: (REBEKAH COLEMAN MD) Departure Impression Primary Impression: Acute UTI Additional Impressions: Radiculopathy of lumbar region Abnormal vaginal bleeding Disposition: 01 HOME, SELF-CARE Condition: Stable Departure-Patient Inst. Decision time for Depature: 14:41 (REBEKAH COLEMAN MD) Referrals: [facility] (PCP) Primary Care Physician ALYSSA REYNOLDS (Family) Primary Care Physician GAYATHRI SPANN DO Patient Instructions: Radiculopathy (DC), Urinary Tract Infection, Adult ED Add. Discharge Instructions: Drink enough fluids to stay well-hydrated. Keflex antibiotic, 1 tablet three times a day for 7 days. You can also use Tylenol extra strength 2 tablets every 6 hours for pain as well as crik-zub-hjkdbia pain patches/heat patches. Return to the emergency room for any worsening pain especially with fever, nausea vomiting or other emergent concerning symptoms. Please follow-up with Dr. Spann as well as your seam stay stitcher tomorrow. Scripts Cephalexin (Cephalexin) 500 Mg Tablet 500 MG PO TID for 7 Days, #21 TAB Prov: REBEKAH COLEMAN MD 09/20/21 Verification and Attestation of Medical Student E/M Service A medical student performed and documented this service in my presence. I reviewed and verified all information documented by the medical student and made modifications to such information, when appropriate. I personally performed the physical exam and medical decision making. Rebekah Coleman, Sep 20, 2021,14:41 (REBEKAH COLEMAN MD) MISTY TRAN MED STUDENT Sep 20, 2021 13:20 REBEKAH COLEMAN MD Sep 20, 2021 13:42
[2021-09-20 13:34] LABS: BASOPHILS % (AUTO) 1 % (0-10); EOSINOPHILS # (AUTO) 0.3 10^3/uL (0.0-0.3); EOSINOPHILS % (AUTO) 4 % (0-10); HEMATOCRIT 29 % (35-52); HEMOGLOBIN 8.8 g/dL (11.5-16.0); LYMPHOCYTES # (AUTO) 2.1 10^3/uL (1.0-4.0); LYMPHOCYTES % (AUTO) 25 % (12-44); MEAN CORPUSCULAR HEMOGLOBIN 25 pg (25-34); MEAN CORPUSCULAR HGB CONC 30 g/dL (32-36); MEAN CORPUSCULAR VOLUME 81 fL (80-99); MEAN PLATELET VOLUME 9.6 fL (9.0-12.2); MONOCYTES # (AUTO) 0.6 10^3/uL (0.0-1.0); MONOCYTES % (AUTO) 8 % (0-12); NEUTROPHILS # (AUTO) 5.2 10^3/uL (1.8-7.8); NEUTROPHILS % (AUTO) 62 % (42-75); PLATELET COUNT 343 10^3/uL (130-400); WHITE BLOOD COUNT 8.3 10^3/uL (4.3-11.0)
[2021-09-20 13:35] LABS: BILIRUBIN,URINE NEGATIVE (NEGATIVE); COLOR,URINE RED; GLUCOSE, URINE (UA) 2+ (NEGATIVE); KETONES,URINE TRACE (NEGATIVE); LEUKOCYTE ESTERASE ,URINE 1+ (NEGATIVE); NITRITE,URINE POSITIVE (NEGATIVE); PROTEIN,URINE 3+ (NEGATIVE)
[2021-09-20 13:36] LABS: POTASSIUM 4.5 MMOL/L (3.6-5.0)
[2021-09-20 13:42] LABS: CREATININE SERUM 2.82 MG/DL (0.60-1.30)
[2021-09-20] MEDS ORDERED: DEXTROSE 50% 50 ML (IMS) SYR ONE (13:42)
[2021-09-20] MEDS ORDERED: DEXTROSE 50% 50 ML (IMS) SYR IV ONE (13:45)
[2021-09-20] MEDS ORDERED: ONDANSETRON 4 MG/2 ML (SDV) Z0FRAN IVP ONE (13:45)
[2021-09-20 13:50] LABS: BACTERIA,URINE NEGATIVE /HPF; RBC,URINE TNTC /HPF; SQUAMOUS EPITHELIAL CELL,UR 0-2 /HPF; WBC,URINE 0-2 /HPF
[2021-09-20 13:53] LABS: CLARITY,URINE BLOODY
--- NOTE | 2021-09-20 14:12 | Diagnostic Imaging Report ---
EXAMINATION: CT abdomen and pelvis without contrast. TECHNIQUE: Multiple contiguous axial images were obtained through the abdomen and pelvis without the use of intravenous contrast. All CT scans use one or more of the following dose optimizing techniques: automated exposure control, MA and/or KvP adjustment based on patient size and exam type or iterative reconstruction. HISTORY: Flank pain COMPARISON: None available. FINDINGS: Limited views of the lower thorax are unremarkable. The liver is normal without focal lesion. There is no biliary ductal dilation. Gallbladder is surgically absent. Pancreas is normal. Spleen is normal. Adrenal glands are normal. The kidneys are normal. There is no hydronephrosis. Urinary bladder is normal. There are phleboliths in the pelvis. No ureteral stones are seen but the phleboliths make evaluation somewhat difficult. No periureteral stranding or renal stones. Bowel is normal in caliber without obstruction or inflammation. The appendix is normal. There is a 1.8 cm uterine fibroid. There is an abnormal contour of the uterine fundus likely related to a large fibroid. No free fluid or air. There are numerous retroperitoneal lymph nodes but they remain subcentimeter in short axis. Aorta is normal in caliber without aneurysm. There are no suspicious osseus lesions. IMPRESSION: 1. No renal or ureteral stones are seen. 2. Abnormal contour of the uterine fundus, likely related to a large fibroid. Dictated by: Dictated on workstation # [id number]
[2021-09-20] MEDS ORDERED: CEPH500T PO (14:42)
[2021-09-20] MEDS ORDERED: ACETAMINOPHEN 500 MG TAB (TYLENOL) PO ONE (14:45)
[2021-09-20 15:01] VITALS: BP 136/68
== END 2021-09-20 15:02 | disposition home or self-care (01) ==
LOC: EDUNIT# 12:30 → ER 12:32
DX: N39.0 Urinary tract infection, site not specified (principal); M54.16 Radiculopathy, lumbar region; N93.9 Abnormal uterine and vaginal bleeding, unspecified; E66.9 Obesity, unspecified; Z68.42 Body mass index [BMI] 45.0-49.9, adult
CPT/HCPCS: 36415; 74176; 80048; 81000; 82947; 84703; 85025; 87088

== ENCOUNTER 2021-09-28 13:08 | Outpatient (RCR) | payer OTHER ==
[~2021-09-28 13:08] MED LIST changes: +CEPH500T PO
[2021-09-28 13:25] VITALS: BP 143/87
[2021-09-28] MEDS ORDERED: diphenhydrAMINE 50 MG/ML INJ (BENADRYL) IV PRN (13:30)
[2021-09-28] MEDS ORDERED: ACETAMINOPHEN 500 MG TAB (TYLENOL) PO PRN (13:30)
[2021-09-28] MEDS ORDERED: FERRIC CARBOXYMALTOSE INJ 750 MG in NS (IVPB) 250 ML IV SCH (13:30)
[2021-10-15] MEDS ORDERED: ACHD5005 PO (08:25)
== END 2021-10-22 | disposition home or self-care (01) ==
LOC: SDC 13:08
PROVIDERS: ATTEND Nurse Practitioner
DX: N18.4 Chronic kidney disease, stage 4 (severe) (principal)
CPT/HCPCS: 96365

== ENCOUNTER 2021-10-15 06:58 | Emergency (ER) | payer OTHER ==
[~2021-10-15] VITALS: Ht 157 cm; Wt 115.0 kg
[2021-10-15 07:19] LABS: BASOPHILS % (AUTO) 1 % (0-10); EOSINOPHILS # (AUTO) 0.3 10^3/uL (0.0-0.3); EOSINOPHILS % (AUTO) 4 % (0-10); HEMATOCRIT 37 % (35-52); HEMOGLOBIN 11.5 g/dL (11.5-16.0); LYMPHOCYTES # (AUTO) 1.8 10^3/uL (1.0-4.0); LYMPHOCYTES % (AUTO) 23 % (12-44); MEAN CORPUSCULAR HEMOGLOBIN 26 pg (25-34); MEAN CORPUSCULAR HGB CONC 31 g/dL (32-36); MEAN CORPUSCULAR VOLUME 83 fL (80-99); MEAN PLATELET VOLUME 9.6 fL (9.0-12.2); MONOCYTES # (AUTO) 0.7 10^3/uL (0.0-1.0); MONOCYTES % (AUTO) 8 % (0-12); NEUTROPHILS # (AUTO) 5.1 10^3/uL (1.8-7.8); NEUTROPHILS % (AUTO) 64 % (42-75); PLATELET COUNT 304 10^3/uL (130-400)
[2021-10-15] MEDS: fentaNYL INJ 100 MCG/2 ML AMP IVP ONE (07:20)
--- NOTE | 2021-10-15 07:21 | ED Chest Pain ---
General Chief Complaint: Chest Pain Stated Complaint: CP Source: patient, EMS Exam Limitations: no limitations (MISTY TRAN MED STUDENT) History of Present Illness Date Seen by Provider: Oct 15, 2021 Time Seen by Provider: 07:00 Initial Comments Mrs. Coates is a 40 yo female with PMH of DMII and Stage 4 kidney failure that presents to ED today by EMS for chest pain. She states that at 0545 she woke up with chest pain and while getting ready for work she was experiencing a sharp pressure in her chest that she would rate about a 9. Pain radiates into her back with exertion. EMS stated on arrival that her pain is now intermittent and comes and goes regardless of activity. States that standing straight up makes the pain worse. Laying back makes it better. She is SOB, but denies cough, fevers, leg pain, abdominal pain, and rash. She does smoke marijuana. No drug allergies. She has not eaten yet this morning. Blood sugar in ED is 57 and pressure is 185 systolic. (MISTY TRAN MED STUDENT) Initial Comments Patient awoke with the pain left of the sternum. She is noted to wince and groan when moving from the gurney to the ER bed. She specifically has increased pain with movement and palpation of the central chest left of the sternum. There is some exacerbation of pain with inspiration as well. Patient is noted to be hypoglycemic. She took her long-acting insulin but has not eaten breakfast yet this morning. (PRETTY SULLIVAN MD) Allergies and Home Medications Allergies Coded Allergies: lisinopril (Verified Allergy, Severe, COUGH, 12/29/20) Patient Home Medication List Home Medication List Reviewed: Yes (PRETTY SULLIVAN MD) Acetaminophen (Tylenol Extra Strength) 500 Mg Tablet, 1,000 MG PO Q8H PRN for PAIN-MILD (1-4), (Reported) Entered as Reported by: SRINI DAVIS on 12/29/20 1039 Amlodipine Besylate (Amlodipine Besylate) 5 Mg Tablet, 5 MG PO 1015 Prescribed by: JOSH SAL on 12/29/20 1142 Atorvastatin Calcium (Atorvastatin Calcium) 10 Mg Tablet, 10 MG PO HS, (Reported) Entered as Reported by: MASOOD VILLAVICENCIO on 09/30/20 1237 Canagliflozin (Invokana) 300 Mg Tablet, 300 MG PO DAILY, (Reported) Entered as Reported by: MASOOD VILLAVICENCIO on 09/30/20 1237 Cephalexin (Cephalexin) 500 Mg Tablet, 500 MG PO TID Prescribed by: REBEKAH COLEMAN on 09/20/21 1442 Furosemide (Furosemide) 40 Mg Tablet, 40 MG PO BID PRN for WATER RETENTION, (Reported) Entered as Reported by: MASOOD VILLAVICENCIO on 09/30/20 1237 Hydrocodone/Acetaminophen (Hydrocodone-Acetamin 5-325 mg) 1 Each Tablet, 1 TAB PO Q4H PRN for PAIN-MODERATE (5-7) Prescribed by: PRETTY HORNE on 10/15/21 0826 Ibuprofen (Ibuprofen) 200 Mg Tablet, 600 MG PO Q6H PRN for PAIN-MILD (1-4), (Reported) Entered as Reported by: SRINI DAVIS on 12/29/20 1039 Insulin Glargine,Hum.rec.anlog (Lantus Solostar) 100 Unit/1 Ml Insuln.pen, 50 UNITS SQ BID, (Reported) Entered as Reported by: SRINI DAVIS on 12/29/20 1039 Insulin Lispro (Humalog Kwikpen) 100 Unit/1 Ml Insuln.pen, 25 UNITS SQ TIDAC, (Reported) Entered as Reported by: SRINI DAVIS on 12/29/20 1039 Linaclotide (Linzess) 145 Mcg Capsule, 145 MCG PO DAILY, (Reported) Entered as Reported by: MASOOD VILLAVICENICO on 09/30/20 1237 Liraglutide (Victoza 2-Jayme) 0.6 Mg/0.1 Ml Pen.injctr, 1.8 MG SQ DAILY, (Reported) Entered as Reported by: MASOOD VILLAVICENCIO on 09/30/20 1237 Pantoprazole Sodium (Pantoprazole Sodium) 40 Mg Tablet.dr, 40 MG PO DAILY, (Reported) Entered as Reported by: SRINI DAVIS on 12/29/20 1039 Potassium Chloride (Potassium Chloride) 10 Meq Tab.er.prt, 20 MEQ PO DAILY, (Rep orted) Entered as Reported by: MASOOD VILLAVICENCIO on 09/30/20 1237 Rivaroxaban (Xarelto) 15 Mg Tablet, 15 MG PO BID WITH MEALS Prescribed by: REBEKAH COLEMAN on 08/15/21 1025 Review of Systems Review of Systems Constitutional: No chills, No fever EENTM: No Blurred Vision, No Double Vision Respiratory: Denies Cough; Shortness of Air; Denies Wheezing Cardiovascular: Chest Pain; Denies Edema, Denies Palpitations Gastrointestinal: Denies Abdominal Pain, Denies Constipated, Denies Diarrhea; Nausea; Denies Vomiting Genitourinary: Denies Burning, Denies Hematuria Musculoskeletal: No joint pain, No joint swelling Skin: No lesions, No rash Psychiatric/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: Denies Headache; Numbness (bilat feet) (MISTY TRAN) Musculoskeletal: see HPI, other (Chest pain worsened with palpation) Endocrine: See HPI Hematologic/Lymphatic: No Symptoms Reported (PRETTY SULLIVAN MD) Past Zfivtwe-Rkjymx-Xvkfas Hx Patient Social History Tobacco Use?: No Substance use?: Yes Substance type: Marijuana Alcohol Use?: No (PRETTY SULLIVAN MD) Immunizations Up To Date First/Initial COVID19 Vaccinat: 03/14 Second COVID19 Vaccination Jose: 03/14 Third COVID19 Vaccination Date: 03/14 (MISTY TRAN) Seasonal Allergies Seasonal Allergies: No (MISTY TRAN) Past Medical History Surgery/Hospitalization HX: PMH: DM, HTN, HIGH CHOL, RENAL FAILURE Surgeries: Yes (CYST ) Section, Gallbladder, Tubal Ligation Respiratory: Yes Asthma, Chronic Bronchitis Cardiac: No High Cholesterol, Hypertension 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: No 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 oz. 95.096051wp; 47.00 BMI Method:Stated General Appearance: Chronically ill (Stage 4 Kidney), Obese Respiratory: Lungs Clear, Normal Breath Sounds, Other (Tenderness to palpation) Cardiovascular: Regular Rate, Rhythm, No Edema, Normal Peripheral Pulses Gastrointestinal: Normal Bowel Sounds, Non Tender, Soft Extremity: Non Tender, No Calf Tenderness, No Pedal Edema Neurologic/Psychiatric: Alert, Oriented x3, No Motor/Sensory Deficits Skin: Normal Color, Warm/Dry (MARCMISTY MED STUDENT) Progress/Results/Core Measures Results/Orders Lab Results Laboratory Tests Test 10/15/21 07:15 Range/Units White Blood Count 8.0 4.3-11.0 10^3/uL Red Blood Count 4.46 3.80-5.11 10^6/uL Hemoglobin 11.5 11.5-16.0 g/dL Hematocrit 37 35-52 % Mean Corpuscular Volume 83 80-99 fL Mean Corpuscular Hemoglobin 26 25-34 pg Mean Corpuscular Hemoglobin Concent 31 L 32-36 g/dL Red Cell Distribution Width 16.2 H 10.0-14.5 % Platelet Count 304 130-400 10^3/uL Mean Platelet Volume 9.6 9.0-12.2 fL Immature Granulocyte % (Auto) 1 % Neutrophils (%) (Auto) 64 42-75 % Lymphocytes (%) (Auto) 23 12-44 % Monocytes (%) (Auto) 8 0-12 % Eosinophils (%) (Auto) 4 0-10 % Basophils (%) (Auto) 1 0-10 % Neutrophils # (Auto) 5.1 1.8-7.8 10^3/uL Lymphocytes # (Auto) 1.8 1.0-4.0 10^3/uL Monocytes # (Auto) 0.7 0.0-1.0 10^3/uL Eosinophils # (Auto) 0.3 0.0-0.3 10^3/uL Basophils # (Auto) 0.0 0.0-0.1 10^3/uL Immature Granulocyte # (Auto) 0.1 0.0-0.1 10^3/uL Prothrombin Time 11.8 L 12.2-14.7 SEC INR Comment 0.8 0.8-1.4 Activated Partial Thromboplast Time 22 L 24-35 SEC Sodium Level 139 135-145 MMOL/L Potassium Level 5.3 H 3.6-5.0 MMOL/L Chloride Level 112 H 98-107 MMOL/L Carbon Dioxide Level 16 L 21-32 MMOL/L Anion Gap 11 5-14 MMOL/L Blood Urea Nitrogen 35 H 7-18 MG/DL Creatinine 3.09 H 0.60-1.30 MG/DL Estimat Glomerular Filtration Rate 19 BUN/Creatinine Ratio 11 Glucose Level 52 *L 70-105 MG/DL Calcium Level 9.3 8.5-10.1 MG/DL Corrected Calcium 9.9 8.5-10.1 MG/DL Magnesium Level 2.1 1.6-2.4 MG/DL Total Bilirubin 0.2 0.1-1.0 MG/DL Aspartate Amino Transf (AST/SGOT) 17 5-34 U/L Alanine Aminotransferase (ALT/SGPT) 14 0-55 U/L Alkaline Phosphatase 121 40-136 U/L Myoglobin 157.9 H 10.0-92.0 NG/ML Troponin I < 0.028 <0.028 NG/ML Total Protein 6.8 6.4-8.2 GM/DL Albumin 3.2 3.2-4.5 GM/DL (PRETTY SULLIVAN MD) My Orders Orders - PRETTY SULLIVAN MD Cbc With Automated Diff (10/15/21 07:13) Magnesium (10/15/21 07:13) Chest 1 View, Ap/Pa Only (10/15/21 07:13) Ekg Tracing (10/15/21 07:13) Comprehensive Metabolic Panel (10/15/21 07:13) Myoglobin Serum (10/15/21 07:13) Protime With Inr (10/15/21 07:13) Partial Thromboplastin Time (10/15/21 07:13) O2 (10/15/21 07:13) Monitor-Rhythm Ecg Trace Only (10/15/21 07:13) Ed Iv/Invasive Line Start (10/15/21 07:13) Troponin I [place] (10/15/21 07:13) Fentanyl Inj (Sublimaze Injection) (10/15/21 07:15) Ondansetron Injection (Zofran Injectio (10/15/21 07:30) D50w (Emergency) Syringe (Dextrose 50% 5 (10/15/21 07:30) General/Regular (10/15/21 Breakfast) Hydrocodone/Apap 5/325 Tablet (Lortab 5 (10/15/21 08:15) (PRETTY SULLIVAN MD) Medications Given in ED (PRETTY SULLIVAN MD) Vital Signs/I&O 10/15/21 10/15/21 06:58 09:01 Temp 36.3 Pulse 78 85 Resp 16 16 B/P (MAP) 185/111 (135) 159/95 Pulse Ox 98 100 O2 Delivery Room Air Room Air (PRETTY SULLIVAN MD) Progress Progress Note : Progress Note Cardiopulmonary work-up was unremarkable. Chest pain was reproducible with palpation and deep inspiration and appeared musculoskeletal in nature. Pain was treated with fentanyl and hydrocodone. NSAIDs cannot be used due to her renal failure. See discharge instructions for further discussion. Blood sugar was corrected with 25 g of D50 and food. Patient is wearing a continuous glucose monitor and blood sugars were in the 130s prior to discharge. (PRETTY SULLIVAN MD) Initial ECG Impression Date: Oct 15, 2021 Initial ECG Impression Time: 07:01 Initial ECG Rate: 80 Initial ECG Rhythm: Normal Sinus Initial ECG Intervals: Normal Initial ECG Impression: Normal Comment Normal sinus rhythm with no ST elevation or depression. No abnormal intervals or axis deviation (PRETTY SULLIVAN MD) Diagnostic Imaging Diagonstic Imaging: Xray Plain Films/CT/US/NM/MRI: chest Comments Chest x-ray viewed by me and report reviewed. See report below: NAME: [facility] REC#: [id number] PT STATUS: REG ER : 1980 PHYSICIAN: PRETTY SULLIVAN MD ADMIT DATE: 10/15/21/ER Draft Date of Exam:10/15/21 CHEST 1 VIEW, AP/PA ONLY EXAMINATION: Chest radiograph, portable AP view. DATE: 10/15/2021 7:42 AM INDICATION: 40-year-old female, chest pain. COMPARISON: August 15, 2021. FINDINGS: Heart size and mediastinal contours are unchanged. There is no identified pneumothorax. There is no large pleural effusion. There is no identified focal airspace consolidation. IMPRESSION: No identified acute cardiopulmonary abnormality. Dictated on workstation # [id number] Dict: 10/15/21 0743 Trans: 10/15/21 0747 [facility] [id number] Interpreted by: VALENTINA RAJAN MD (PRETTY SULLIVAN MD) Departure Impression Primary Impression: Chest wall pain Additional Impression: Hypoglycemia Disposition: HOME, SELF-CARE Condition: Improved Departure-Patient Inst. [place]: [facility] [place] Primary Care Physician ALYSSA REYNOLDS (Family) Primary Care Physician Patient Instructions: Chest Pain, Costochondritis Add. Discharge Instructions: Your chest pain does not seem consistent with pain caused by your heart. It may be related to musculoskeletal inflammation such as costochondritis. Use hydrocodone as prescribed to treat moderate to severe pain. Use Tylenol (acetaminophen) up to 1000 mg every 6 hours as needed to treat more mild pain. You may also try topical treatments such as lidocaine patches (Salonpas). Return to care if you have worsening of symptoms despite following these instructions. Continue to monitor your blood sugars closely and eat a well-balanced diabetic diet. Follow-up with your primary care provider within the next week or two. Keep your appointment with your logistics team leader. Your potassium is slightly high today. Discussed this with your logistics team leader at your follow-up appointment. In the meantime, drink plenty of water. Call with questions or concerns. Return to the ER if you have any other urgent medical issues. All discharge instructions reviewed with patient and/or family. Voiced understanding. Scripts Hydrocodone/Acetaminophen (Hydrocodone-Acetamin 5-325 mg) 1 Each Tablet 1 TAB PO Q4H PRN for PAIN-MODERATE (5-7), #10 TAB Prov: PRETTY SULLIVAN MD 10/15/21 Medical Student Attestation and Attending Note: I have personally interviewed and examined this patient along with Misty Tran, MS 4. I have reviewed student documentation including history, physical, and assessments. I agree with the documentation except where otherwise noted. Exam: General: Alert, oriented, mild acute distress, well developed, obese HEENT: Normocephalic and atraumatic Heart: Regular rate and rhythm without murmur, anterior chest wall tender to palpation just left of the sternum Lungs: Clear to auscultation bilaterally with normal effort Abdomen: Soft, nontender, nondistended, normal bowel sounds Extremities: Normal to inspection, no significant edema, nontender Neuropsych: Alert, oriented, no focal deficits Skin: Warm and dry without rashes (PRETTY SULLIVAN MD) Copy Copies To 1: DIANA VERNON DEREK MED STUDENT Oct 15, 2021 07:21 PRETTY SULLIVAN MD Oct 15, 2021 07:53
[2021-10-15 07:25] LABS: ALBUMIN 3.2 GM/DL (3.2-4.5)
[2021-10-15 07:26] LABS: CALCIUM 9.3 MG/DL (8.5-10.1); INR 0.8 (0.8-1.4); PROTHROMBIN TIME PATIENT 11.8 SEC (12.2-14.7)
[2021-10-15 07:27] LABS: TOTAL PROTEIN 6.8 GM/DL (6.4-8.2)
[2021-10-15 07:29] LABS: BILIRUBIN,TOTAL 0.2 MG/DL (0.1-1.0)
[2021-10-15 07:31] LABS: CREATININE SERUM 3.09 MG/DL (0.60-1.30)
[2021-10-15 07:34] LABS: MAGNESIUM 2.1 MG/DL (1.6-2.4)
[2021-10-15] MEDS: DEXTROSE 50% 50 ML (IMS) SYR IV ONE (07:37)
[2021-10-15] MEDS: ONDANSETRON 4 MG/2 ML (SDV) Z0FRAN IVP ONE (07:37)
--- NOTE | 2021-10-15 07:48 | Diagnostic Imaging Report ---
EXAMINATION: Chest radiograph, portable AP view. DATE: 10/15/2021 7:42 AM INDICATION: 40-year-old female, chest pain. COMPARISON: August 15, 2021. FINDINGS: Heart size and mediastinal contours are unchanged. There is no identified pneumothorax. There is no large pleural effusion. There is no identified focal airspace consolidation. IMPRESSION: No identified acute cardiopulmonary abnormality. Dictated by: Dictated on workstation # [id number]
[2021-10-15 07:49] LABS: POTASSIUM 5.3 MMOL/L (3.6-5.0)
[2021-10-15] MEDS ORDERED: ACHD5005 PO (08:25)
[2021-10-15] MEDS: HYDROcodone/APAP 5 MG/325 MG (LORTAB) TAB PO ONE (08:25)
[2021-10-15 09:01] VITALS: BP 159/95
== END 2021-10-15 09:01 | disposition home or self-care (01) ==
LOC: EDUNIT# 06:58 → ER 07:00
DX: R07.89 Other chest pain (principal); E11.649 Type 2 diabetes mellitus with hypoglycemia without coma; E66.9 Obesity, unspecified; Z68.42 Body mass index [BMI] 45.0-49.9, adult
CPT/HCPCS: 36415; 71045; 80053; 83735; 83874; 84484; 85025; 85610; 85730; 93005; 93041

== ENCOUNTER → 2021-12-01 | Outpatient (CLI) | payer OTHER ==
[~2021-12-01] MED LIST changes: +ACHD5005 PO
== END ==
LOC: CARD 14:30
PROVIDERS: ATTEND Internal Medicine Cardiovascular Disease
DX: I51.7 Cardiomegaly (principal)
CPT/HCPCS: 93306

== ENCOUNTER → 2021-12-08 | Outpatient (CLI) | payer OTHER ==
[~2021-12-08] VITALS: Ht 157 cm; Wt 112.0 kg
[~2021-12-08] MED LIST changes: +CATHETER FLUSH 10 ML SYR IVP PRN; +REGADENOSON 0.4 MG/5 ML SYR (LEXISCAN) IV ONE
[2021-12-08 09:05] VITALS: BP 147/82
--- NOTE | 2021-12-09 12:22 | STRESS TEST ---
DATE OF SERVICE: 12/08/2021 RESTING AND POST REGADENOSON TECHNETIUM-99M TETROFOSMIN SPECT CT IMAGING ORDERING PHYSICIAN: Dr. Boothe. PRIMARY PHYSICIAN: [facility]. Baseline images were carried out after injection of 11 mCi of technetium-99m Tetrofosmin. This was followed by 0.4 mg regadenoson and 28 mCi of technetium-99m Tetrofosmin for stress imaging. The electrocardiogram showed sinus rhythm and did not change significantly with regadenoson infusion. She noted some nausea following regadenoson infusion, which resolved shortly after the regadenoson had been completed. Review of images at rest and following stress does not indicate any distinct evidence of significant myocardial ischemia or infarction. Gated images show normal global left ventricular systolic function with normal regional wall motion. Left ventricular ejection fraction is calculated to be 75%. CONCLUSIONS: 1. No evidence of any significant myocardial ischemia or infarction on this study. 2. Normal regional wall motion. 3. Normal global left ventricular systolic function with a calculated ejection fraction of 75%. Job ID: [id number] DocumentID: [id number] Dictated Date: 12/09/2021 12:01:58 Executive Admin Date: 12/09/2021 12:21:51 Dictated By: ELYSE BOOTHE MD, MA, FACP, FACC,
== END ==
LOC: CARD 07:09
PROVIDERS: ATTEND Internal Medicine Cardiovascular Disease
DX: R06.09 Other forms of dyspnea (principal)
CPT/HCPCS: 78452; 93017; A9502

== ENCOUNTER → 2022-02-05 | Outpatient (CLI) | payer OTHER ==
[~2022-02-05] MED LIST changes: -CATHETER FLUSH 10 ML SYR IVP PRN; -REGADENOSON 0.4 MG/5 ML SYR (LEXISCAN) IV ONE
--- NOTE | 2022-02-05 14:06 | Diagnostic Imaging Report ---
PROCEDURE: US Thyroid. TECHNIQUE: Multiple real-time grayscale images were obtained of the thyroid in various projections. INDICATION: Thyroid nodules. Correlation is made with prior thyroid ultrasound from 02/27/2021. Right lobe of thyroid measures 6.6 x 2.8 x 2.7 cm and the left lobe measures 6.6 x 2.2 x 2.5 cm. Isthmus is 7 mm in thickness. Subcentimeter thyroid nodules bilaterally are again noted and unchanged. The dominant solid nodule in the mid to lower pole of the right lobe of thyroid measures 3.3 x 2.5 x 3.1 cm compared with 3.5 x 1.9 x 3.2 cm on prior. No new masses are seen. IMPRESSION: Stable thyroid ultrasound with stable dominant solid mass right lobe of thyroid when compared to examination one year earlier. Dictated by: Dictated on workstation # [id number]
== END ==
LOC: RAD 11:30
PROVIDERS: ATTEND Otolaryngology Otolaryngology/Facial Plastic Surgery
DX: E04.2 Nontoxic multinodular goiter (principal)
CPT/HCPCS: 76536

== ENCOUNTER 2022-03-29 13:51 | Emergency (ER) | payer OTHER ==
[~2022-03-29] VITALS: Ht 157.5 cm; Wt 119.7 kg
[~2022-03-29 13:51] MED LIST changes: +POTA-177 PO; -POTA10TA37 PO
--- NOTE | 2022-03-29 14:54 | ED EENT ---
History of Present Illness General Chief Complaint: Eye Problems Stated Complaint: IRISH EYE REDNESS/SWELLING/DRAINING Nursing Triage Note: PT AMB TO ED BY POV WITH C/O RED, SWOLLEN, ITCHY EYES SINCE TUESDAY. PT WAS SEEN AT [facility] ON TUE, WAS GIVEN EYE DROPS FOR PINK EYE. REPORTS EYE PRESSURE WORSE IN R EYE. Source: patient Exam Limitations: no limitations History of Present Illness Date Seen by Provider: Mar 29, 2022 Time Seen by Provider: 14:30 Initial Comments 41-year-old female presents emerged from today for bilateral eye redness, swelling and drainage. She was seen in the [facility] clinic on Tuesday and started on Bleph-10 eyedrops. She states symptoms have worsened as her right eye is now swelling some. No fevers chills. No purulent drainage. She does have clear watery drainage bilaterally that is profuse. She does not wear contacts. Allergies and Home Medications Allergies Coded Allergies: lisinopril (Verified Allergy, Severe, COUGH, 12/29/20) Patient Home Medication List Home Medication List Reviewed: Yes Acetaminophen (Tylenol Extra Strength) 500 Mg Tablet, 1,000 MG PO Q8H PRN for PAIN-MILD (1-4), (Reported) Entered as Reported by: SRINI DAVIS on 12/29/20 1039 Amlodipine Besylate (Amlodipine Besylate) 5 Mg Tablet, 5 MG PO 1015 Prescribed by: JOSH SAL on 12/29/20 1142 Atorvastatin Calcium (Atorvastatin Calcium) 10 Mg Tablet, 10 MG PO HS, (Reported) Entered as Reported by: MASOOD VILLAVICENCIO on 09/30/20 1237 Canagliflozin (Invokana) 300 Mg Tablet, 300 MG PO DAILY, (Reported) Entered as Reported by: MASOOD VILLAVICENCIO on 09/30/20 1237 Cephalexin (Cephalexin) 500 Mg Tablet, 500 MG PO TID Prescribed by: REBEKAH COLEMAN on 09/20/21 1442 Furosemide (Furosemide) 40 Mg Tablet, 40 MG PO BID PRN for WATER RETENTION, (Reported) Entered as Reported by: MASOOD VILLAVICENCIO on 09/30/20 1237 Hydrocodone/Acetaminophen (Hydrocodone-Acetamin 5-325 mg) 1 Each Tablet, 1 TAB PO Q4H PRN for PAIN-MODERATE (5-7) Prescribed by: PRETTY HORNE on 10/15/21 0826 Ibuprofen (Ibuprofen) 200 Mg Tablet, 600 MG PO Q6H PRN for PAIN-MILD (1-4), (Reported) Entered as Reported by: SRINI DAVIS on 12/29/20 1039 Insulin Glargine,Hum.rec.anlog (Lantus Solostar) 100 Unit/1 Ml Insuln.pen, 50 UNITS SQ BID, (Reported) Entered as Reported by: SRINI DAVIS on 12/29/20 1039 Insulin Lispro (Humalog Kwikpen) 100 Unit/1 Ml Insuln.pen, 25 UNITS SQ TIDAC, (Reported) Entered as Reported by: SRINI DAVIS on 12/29/20 1039 Linaclotide (Linzess) 145 Mcg Capsule, 145 MCG PO DAILY, (Reported) Entered as Reported by: MASOOD VILLAVICENCIO on 09/30/20 1237 Liraglutide (Victoza 2-Jayme) 0.6 Mg/0.1 Ml Pen.injctr, 1.8 MG SQ DAILY, (R eported) Entered as Reported by: MASOOD VILLAVICENCIO on 09/30/20 1237 Pantoprazole Sodium (Pantoprazole Sodium) 40 Mg Tablet.dr, 40 MG PO DAILY, (Reported) Entered as Reported by: SRINI DAVIS on 12/29/20 1039 Potassium Chloride (Potassium Chloride) 10 Meq Tab.er.prt, 20 MEQ PO DAILY, (Reported) Entered as Reported by: MASOOD VILLAVICENCIO on 09/30/20 1237 Rivaroxaban (Xarelto) 15 Mg Tablet, 15 MG PO BID WITH MEALS Prescribed by: REBEKAH COLEMAN on 08/15/21 1155 Review of Systems Review of Systems Constitutional: no symptoms reported Eyes: Drainage, Inflammation, Pain Ears: No Symptoms Reported Nose: no symptoms reported Mouth: no symptoms reported Throat: no symptoms reported Respiratory: no symptoms reported Cardiovascular: no symptoms reported Gastrointestinal: no symptoms reported Musculoskeletal: no symptoms reported Skin: no symptoms reported 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: No Symptoms Reported Hematologic/Lymphatic: No Symptoms Reported Immunological/Allergic: no symptoms reported Past Tunebfs-Msshke-Nahkhf Hx Patient Social History Tobacco Use?: No Use of E-Cig and/or Vaping dev: No Substance use?: No Alcohol Use?: No Immunizations Up To Date First/Initial COVID19 Vaccinat: 03/14 Second COVID19 Vaccination Jose: 03/14 Third COVID19 Vaccination Date: 03/14 Seasonal Allergies Seasonal Allergies: No Past Medical History Surgery/Hospitalization HX: PMH: DM 2, HTN, HIGH CHOL, CKD, RENAL FAILURE SX: NAT, C SECT X 3 Surgeries: Yes (CYST ) Section, Gallbladder, Tubal Ligation Respiratory: Yes Asthma, Chronic Bronchitis Cardiac: No High Cholesterol, Hypertension 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 oz. 95.945507ht; 48.00 BMI Method:Stated General Appearance: WD/WN, no apparent distress Eyes: bilateral eye other (Conjunctival injection bilaterally. Clear drainage bilaterally. Pupils equal and reactive to light and accommodation. There are some mild swelling in the infraorbital region on the right.) Ears: bilateral ear auricle normal, bilateral ear canal normal, bilateral ear TM normal Nose: normal inspection Mouth/Throat: normal mouth inspection, pharynx normal Neck: non-tender, supple, normal inspection Cardiovascular: regular rate, rhythm, no edema, no gallop, no JVD, no murmur Respiratory: chest non-tender, lungs clear, normal breath sounds, no respiratory distress, no accessory muscle use Gastrointestinal: normal bowel sounds, non tender, soft, no organomegaly, no pulsatile mass Neurologic/Psychiatric: alert, normal mood/affect, oriented x 3 Skin: normal color, warm/dry Progress/Results/Core Measures Results/Orders Vital Signs/I&O 03/29/22 14:10 Temp 36.8 Pulse 71 Resp 16 B/P (MAP) 182/96 (124) Pulse Ox 100 O2 Delivery Room Air Blood Pressure Mean: 124 Departure Communication (Admissions) Patient is hemodynamically stable. Has conjunctivitis bilateral. Unclear if this is infectious versus allergy. We will treat conservatively with switch of eyedrops and recommended allergy eyedrops as well. Questions were sought and an swered she is discharged in stable condition. Impression Primary Impression: Conjunctivitis Qualified Codes: H10.33 - Unspecified acute conjunctivitis, bilateral Disposition: 01 HOME, SELF-CARE Condition: Stable Departure-Patient Inst. Decision time for Depature: 14:51 Referrals: [facility] (PCP) Primary Care Physician ALYSSA REYNOLDS (Family) Primary Care Physician Patient Instructions: Conjunctivitis ([place]) (DC) Add. Discharge Instructions: Please stop taking the old eyedrops and start the new ones. I would also get an allergy eyedrop [id number] and stagger these with the antibiotic drops. Follow-up with your primary doctor in the next 3 days. Return to the emergency department for any severe concerns All discharge instructions reviewed with patient and/or family. Voiced understanding. Scripts Ofloxacin (Ofloxacin) 0.3 % Drops 5 ML OP QID for 5 Days, #1 PKG Prov: CHINO MCDOWELL DO 03/29/22 CHINO MCDOWELL DO Mar 29, 2022 14:54
[2022-03-29] MEDS ORDERED: OFLO5DRO3 OP (14:55)
[2022-03-29 15:06] VITALS: BP 168/86
== END 2022-03-29 15:05 | disposition home or self-care (01) ==
LOC: EDUNIT# 13:51 → ER 13:54
DX: H10.9 Unspecified conjunctivitis (principal)
CPT/HCPCS: 99281

== ENCOUNTER 2022-04-02 10:57 | Inpatient (IN) | payer OTHER ==
[~2022-04-02] VITALS: Ht 157.5 cm; Wt 129.6 kg
[~2022-04-02 10:57] MED LIST changes: +OFLO5DRO3 OP
[2022-04-02 11:27] LABS: BASOPHILS % (AUTO) 0 % (0-10); EOSINOPHILS # (AUTO) 0.1 10^3/uL (0.0-0.3); EOSINOPHILS % (AUTO) 1 % (0-10); HEMATOCRIT 30 % (35-52); HEMOGLOBIN 9.8 g/dL (11.5-16.0); LYMPHOCYTES # (AUTO) 1.5 10^3/uL (1.0-4.0); LYMPHOCYTES % (AUTO) 23 % (12-44); MEAN CORPUSCULAR HEMOGLOBIN 27 pg (25-34); MEAN CORPUSCULAR HGB CONC 33 g/dL (32-36); MEAN CORPUSCULAR VOLUME 81 fL (80-99); MEAN PLATELET VOLUME 8.8 fL (9.0-12.2); MONOCYTES # (AUTO) 0.6 10^3/uL (0.0-1.0); MONOCYTES % (AUTO) 9 % (0-12); NEUTROPHILS # (AUTO) 4.4 10^3/uL (1.8-7.8); NEUTROPHILS % (AUTO) 66 % (42-75); PLATELET COUNT 278 10^3/uL (130-400); WHITE BLOOD COUNT 6.7 10^3/uL (4.3-11.0)
[2022-04-02] MEDS ORDERED: HOLD METFORMIN - RECEIVED CONTRAST 20 ML VIAL IV SCH (11:30)
[2022-04-02] MEDS ORDERED: CATHETER FLUSH 10 ML SYR IV PRN (11:30)
[2022-04-02] MEDS ORDERED: IOHEXOL 350 MG/ML 100 ML (OMNIPAQUE 350) VIAL IV ONE (11:30)
[2022-04-02] MEDS ORDERED: NS 100 ML (IVPB) BAG IV ONE (11:30)
[2022-04-02 11:43] LABS: ALBUMIN 2.8 GM/DL (3.2-4.5); POTASSIUM 4.7 MMOL/L (3.6-5.0)
[2022-04-02 11:44] LABS: CALCIUM 8.6 MG/DL (8.5-10.1)
[2022-04-02 11:47] LABS: BILIRUBIN,TOTAL 0.2 MG/DL (0.1-1.0)
[2022-04-02 11:48] LABS: ERYTHROCYTE SEDIMENTATION RATE 95 MM/HR (0-20)
[2022-04-02 11:49] LABS: CREATININE SERUM 3.42 MG/DL (0.60-1.30)
--- NOTE | 2022-04-02 12:38 | Diagnostic Imaging Report ---
PROCEDURE: CT orbit without contrast. TECHNIQUE: Multiple contiguous axial images were obtained through the facial bones without the use of intravenous contrast. Auto Exposure Controls were utilized during the CT exam to meet ALARA standards for radiation dose reduction. INDICATION: Right eye swelling. Evaluate for cellulitis. FINDINGS: There is abnormal preseptal soft tissue swelling demonstrated about the right orbit suggesting a periorbital cellulitis. There is no convincing evidence of intraorbital post-septal involvement. There is no definable abscess, foreign body or fluid collection. There is no definable soft tissue mass. The intraorbital contents themselves unremarkable. The globes are normal in morphology. Paranasal sinuses demonstrate mild mucosal thickening in the right maxillary sinus. There are no air-fluid levels. The middle ears and mastoids are clear. The soft tissues of the visualized portion of the upper neck appear appropriately symmetric. Limited assessment of the intracranial contents demonstrates no evidence of mass effect or hydrocephalus IMPRESSION: Diffuse preseptal periorbital soft tissue swelling suggesting a periorbital cellulitis. There is no evidence of post septal involvement. There is no definable abscess, foreign body or focal mass. Dictated by: Dictated on workstation # [id number]
--- NOTE | 2022-04-02 12:43 | ED EENT ---
History of Present Illness General Chief Complaint: Eye Problems Stated Complaint: SWELLING OF RIGHT EYE Source: patient Exam Limitations: no limitations History of Present Illness Date Seen by Provider: Apr 02, 2022 Time Seen by Provider: 13:25 Initial Comments To ER with right eye swelling. This began about 1 week ago and on Tuesday she was seen at [facility]. She initially just had tearing of the right eye. She was given topical antibiotics. The next day she worsened with some swelling and was seen here in the emergency room. She was subsequently started on Levaquin which she has been taking daily since 03/28/2022. She is been following with Dr. Verma and Dr. Cisneros from optometry this week and she has failed to improve. She was referred to the emergency room today due to ongoing and increasing swelling with need for CT to evaluate for abscess. She denies fevers or chills. She stage IV chronic kidney disease and is diabetic. 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 Timing/Duration: last week Severity: moderate Location: eye (R) Prearrival Treatment: prescription meds Associated Symptoms: denies symptoms Allergies and Home Medications Allergies Coded Allergies: lisinopril (Verified Allergy, Severe, COUGH, 12/29/20) Patient Home Medication List Home Medication List Reviewed: Yes Acetaminophen (Tylenol Extra Strength) 500 Mg Tablet, 1,000 MG PO Q8H PRN for PAIN-MILD (1-4), (Reported) Entered as Reported by: SRINI DAVIS on 12/29/20 1039 Amlodipine Besylate (Amlodipine Besylate) 5 Mg Tablet, 5 MG PO 1015 Prescribed by: JOSH SAL on 12/29/20 1142 Atorvastatin Calcium (Atorvastatin Calcium) 10 Mg Tablet, 10 MG PO HS, (Reported) Entered as Reported by: MASOOD VILLAVICENCIO on 09/30/20 1237 Canagliflozin (Invokana) 300 Mg Tablet, 300 MG PO DAILY, (Reported) Entered as Reported by: MASOOD VILLAVICENCIO on 09/30/20 1237 Cephalexin (Cephalexin) 500 Mg Tablet, 500 MG PO TID Prescribed by: REBEKAH COLEMAN on 09/20/21 1442 Furosemide (Furosemide) 40 Mg Tablet, 40 MG PO BID PRN for WATER RETENTION, (Reported) Entered as Reported by: MASOOD VILLAVICENCIO on 09/30/20 1237 Hydrocodone/Acetaminophen (Hydrocodone-Acetamin 5-325 mg) 1 Each Tablet, 1 TAB PO Q4H PRN for PAIN-MODERATE (5-7) Prescribed by: PRETTY HORNE on 10/15/21 0826 Ibuprofen (Ibuprofen) 200 Mg Tablet, 600 MG PO Q6H PRN for PAIN-MILD (1-4), (Reported) Entered as Reported by: SRINI DAVIS on 12/29/20 1039 Insulin Glargine,Hum.rec.anlog (Lantus Solostar) 100 Unit/1 Ml Insuln.pen, 50 UNITS SQ BID, (Reported) Entered as Reported by: SRINI DAVIS on 12/29/20 1039 Insulin Lispro (Humalog Kwikpen) 100 Unit/1 Ml Insuln.pen, 25 UNITS SQ TIDAC, (Reported) Entered as Reported by: SRINI DAVIS on 12/29/20 1039 Linaclotide (Linzess) 145 Mcg Capsule, 145 MCG PO DAILY, (Reported) Entered as Reported by: MASOOD VILLAVICENCIO on 09/30/20 1237 Liraglutide (Victoza 2-Jayme) 0.6 Mg/0.1 Ml Pen.injctr, 1.8 MG SQ DAILY, (Reported) Entered as Reported by: MASOOD VILLAVICENCIO on 09/30/20 1237 Ofloxacin (Ofloxacin) 0.3 % Drops, 5 ML OP QID Prescribed by: CHINO MCDOWELL MD on 03/29/22 1455 Pantoprazole Sodium (Pantoprazole Sodium) 40 Mg Tablet.dr, 40 MG PO DAILY, (Reported) Entered as Reported by: SRINI DAVIS on 12/29/20 1039 Potassium Chloride (Potassium Chloride) 10 Meq Tab.er.prt, 20 MEQ PO DAILY, (Reported) Entered as Reported by: MASOOD VILLAVICENCIO on 09/30/20 1237 Rivaroxaban (Xarelto) 15 Mg Tablet, 15 MG PO BID WITH MEALS Prescribed by: REBEKAH COLEMAN on 08/15/21 1155 Review of Systems Review of Systems Constitutional: see HPI Eyes: No Symptoms Reported, See HPI Ears: No Symptoms Reported Nose: no symptoms reported Mouth: no symptoms reported Throat: no symptoms reported Respiratory: no symptoms reported Cardiovascular: no symptoms reported Musculoskeletal: no symptoms reported Skin: no symptoms reported 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: No Symptoms Reported Hematologic/Lymphatic: No Symptoms Reported Past Gdthddz-Baiyvu-Jppkaw Hx Immunizations Up To Date First/Initial COVID19 Vaccinat: 03/14 Second COVID19 Vaccination Jose: 03/14 Third COVID19 Vaccination Date: 03/14 Seasonal Allergies Seasonal Allergies: No Past Medical History Surgery/Hospitalization HX: PMH: DM 2, HTN, HIGH CHOL, CKD, RENAL FAILURE SX: NAT, C SECT X 3 Surgeries: Yes (CYST ) Section, Gallbladder, Tubal Ligation Respiratory: Yes Asthma, Chronic Bronchitis Cardiac: No High Cholesterol, Hypertension 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: No 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 oz. 95.140444bm; 48.00 BMI Method:Stated General Appearance: WD/WN, no apparent distress Eyes: right eye other (Small amount of purulent material in the medial canthus. No conjunctivitis. Extraocular muscles are intact. There is some upper and lower lid edema on the right with some lower lid erythema as well.); bilateral eye PERRL, bilateral eye EOMI Ears: bilateral ear auricle normal, bilateral ear canal normal Progress/Results/Core Measures Results/Orders Lab Results Laboratory Tests Test 04/02/22 11:15 Range/Units White Blood Count 6.7 4.3-11.0 10^3/uL Red Blood Count 3.68 L 3.80-5.11 10^6/uL Hemoglobin 9.8 L 11.5-16.0 g/dL Hematocrit 30 L 35-52 % Mean Corpuscular Volume 81 80-99 fL Mean Corpuscular Hemoglobin 27 25-34 pg Mean Corpuscular Hemoglobin Concent 33 32-36 g/dL Red Cell Distribution Width 12.3 10.0-14.5 % Platelet Count 278 130-400 10^3/uL Mean Platelet Volume 8.8 L 9.0-12.2 fL Immature Granulocyte % (Auto) 1 % Neutrophils (%) (Auto) 66 42-75 % Lymphocytes (%) (Auto) 23 12-44 % Monocytes (%) (Auto) 9 0-12 % Eosinophils (%) (Auto) 1 0-10 % Basophils (%) (Auto) 0 0-10 % Neutrophils # (Auto) 4.4 1.8-7.8 10^3/uL Lymphocytes # (Auto) 1.5 1.0-4.0 10^3/uL Monocytes # (Auto) 0.6 0.0-1.0 10^3/uL Eosinophils # (Auto) 0.1 0.0-0.3 10^3/uL Basophils # (Auto) 0.0 0.0-0.1 10^3/uL Immature Granulocyte # (Auto) 0.0 0.0-0.1 10^3/uL Erythrocyte Sedimentation Rate 95 H 0-20 MM/HR Sodium Level 142 135-145 MMOL/L Potassium Level 4.7 3.6-5.0 MMOL/L Chloride Level 113 H 98-107 MMOL/L Carbon Dioxide Level 21 21-32 MMOL/L Anion Gap 8 5-14 MMOL/L Blood Urea Nitrogen 32 H 7-18 MG/DL Creatinine 3.42 H 0.60-1.30 MG/DL Estimat Glomerular Filtration Rate 16 BUN/Creatinine Ratio 9 Glucose Level 84 70-105 MG/DL Calcium Level 8.6 8.5-10.1 MG/DL Corrected Calcium 9.6 8.5-10.1 MG/DL Total Bilirubin 0.2 0.1-1.0 MG/DL Aspartate Amino Transf (AST/SGOT) 12 5-34 U/L Alanine Aminotransferase (ALT/SGPT) 12 0-55 U/L Alkaline Phosphatase 135 40-136 U/L C-Reactive Protein High Sensitivity 0.59 H 0.00-0.50 MG/DL Total Protein 6.0 L 6.4-8.2 GM/DL Albumin 2.8 L 3.2-4.5 GM/DL Procalcitonin 0.07 <0.10 NG/ML Serum Test, Qualitative NEGATIVE NEGATIVE My Orders Orders - MAYA ROSE APRN Cbc With Automated Diff (04/02/22 11:05) Comprehensive Metabolic Panel (04/02/22 11:05) Hs C Reactive Protein (04/02/22 11:05) Erythrocyte Sedimentation Rate (04/02/22 11:05) Procalcitonin (Pct) (04/02/22 11:05) Hcg,Qualitative Serum (04/02/22 11:05) Iohexol Injection (Omnipaque 350 Mg/Ml 1 (04/02/22 11:30) Received Contrast (Hold Metformin- Contr (04/02/22 11:30) Sodium Chloride Flush (Catheter Flush Sy (04/02/22 11:30) Ns (Ivpb) (Sodium Chloride 0.9% Ivpb Bag (04/02/22 11:30) Ct Orbit Wo (04/02/22 11:05) Eye Culture (04/02/22 12:43) Ceftriaxone 1 Gm Pre-Mix (Rocephin 1 Gm (04/02/22 12:45) Vancomycin 1,500 Mg X1 Ed Only (04/02/22 13:30) Medications Given in ED Current Medications Medications Dose Ordered Sig/Christopher Route Start Time Stop Time Status Last Admin Dose Admin Ceftriaxone Sodium/Dextrose 50 ml @ 100 mls/hr ONCE ONCE IV 04/02/22 12:45 04/02/22 13:14 DC 04/02/22 13:02 100 MLS/HR Departure Communication (Admissions) 1327-Spoke with Dr. Weems will admit on Rocephin and vancomycin I spoke with Osiel Davis from pharmacy. Will empirically do 1.5 g of vancomycin and he will adjust dosage based on renal function. I did obtain a culture of the discharge from the medial canthus of the right eye. I will try to contact optometry for an in-hospital consult. Impression Primary Impression: Preseptal cellulitis of right eye Disposition: ADMITTED INPATIENT Condition: Stable Admissions Decision to Admit Reason: Admit from ER (General) Decision to Admit/Date: Apr 02, 2022 Time/Decision to Admit Time: 13:27 Departure-Patient Inst. Referrals: [facility] (PCP/Family) Primary Care Physician MAYA ROSE APRN Apr 02, 2022 12:43
[2022-04-02] MEDS ORDERED: cefTRIAXone 1 GM PRE-MIX 50 ML IV ONE (12:45)
[2022-04-02] MEDS ORDERED: VANCOMYCIN INJECTION 1,500 MG in NS IV 500 ML 500 ML IV ONE (13:30)
[2022-04-02] MEDS ORDERED: MEROPENEM 1,000 MG in NS (IVPB) 100 ML IV SCH (15:45)
[2022-04-02] MEDS ORDERED: diphenhydrAMINE 25 MG TAB (BENADRYL) PO PRN (15:45)
[2022-04-02] MEDS ORDERED: HYDROmorphone 2 MG/ML VIAL (DILAUDID) IV PRN (15:45)
[2022-04-02] MEDS ORDERED: BISACODYL 10 MG SUPP (DULCOLAX) PR PRN (15:45)
[2022-04-02] MEDS ORDERED: LACTULOSE SYRUP 10GM/15ML (ENULOSE) 30ML UDC PO PRN (15:45)
[2022-04-02] MEDS ORDERED: MELATONIN 3 MG TABLET PO PRN (15:45)
[2022-04-02] MEDS ORDERED: ONDANSETRON 4 MG (ZOFRAN) ORAL DISSOLVE TAB PO PRN (15:45)
[2022-04-02] MEDS ORDERED: ACETAMINOPHEN 325 MG TABLET PO PRN (15:45)
[2022-04-02] MEDS ORDERED: diphenhydrAMINE 50 MG/ML INJ (BENADRYL) IVP PRN (15:45)
[2022-04-02] MEDS ORDERED: ONDANSETRON 4 MG/2 ML (SDV) Z0FRAN IV PRN (15:45)
[2022-04-02] MEDS ORDERED: MILK OF MAGNESIA 400 MG/5 ML 30 ML UDC PO PRN (15:45)
[2022-04-02] MEDS ORDERED: polyethylene glycoL POWDER 17 GM (MIRALAX) PACK PO PRN (15:45)
[2022-04-02] MEDS ORDERED: ANTACID SUSP 30 ML UDC (MYLANTA) PO PRN (15:45)
[2022-04-02 16:00] VITALS: BP 149/88
[2022-04-02] MEDS ORDERED: AMLO-250 PO (16:02)
[2022-04-02] MEDS ORDERED: CALC0.253 PO (16:02)
[2022-04-02] MEDS ORDERED: INSU100I10 SQ (16:02)
[2022-04-02] MEDS ORDERED: LIRA0.6P SQ (16:02)
[2022-04-02] MEDS ORDERED: ATOR10TA66 PO (16:02)
[2022-04-02] MEDS ORDERED: INSU100I23 SQ (16:02)
[2022-04-02] MEDS ORDERED: LOSA50TA63 PO (16:02)
[2022-04-02] MEDS: MEROPENEM 500 MG/NS 100 ML IVPB IV SCH ×2 (16:30)
[2022-04-02 16:48] VITALS: BP 149/88
[2022-04-02] MEDS: NS IV 1000 ML 1,000 ML IV SCH (16:51)
[2022-04-02] MEDS ORDERED: ALBU2.5V4 INH (16:58)
[2022-04-02] MEDS ORDERED: ALBU8.5H9 INH (16:58)
[2022-04-02] MEDS ORDERED: RT-ALBUTEROL SULF 2.5 MG/3 ML PRE-MIX VIAL INH PRN ×2 (17:00→20:15)
[2022-04-02] MEDS: cloNIDine 0.1 MG (CATAPRES) TAB PO PRN (19:27)
[2022-04-02 19:28] VITALS: BP 206/94
[2022-04-02 19:31] VITALS: BP 176/92
[2022-04-02] MEDS ORDERED: FUROSEMIDE 40 MG (LASIX) TAB PO PRN (20:15)
[2022-04-02] MEDS ORDERED: RT-ALBUTEROL HFA 8.5 GM INHALER IH PRN (20:15)
[2022-04-02] MEDS ORDERED: ACETAMINOPHEN 500 MG TAB (TYLENOL) PO PRN (20:15)
[2022-04-02] MEDS ORDERED: VANCOMYCIN INJECTION 1,500 MG in NS IV 500 ML 500 ML IV SCH (21:00)
[2022-04-02] MEDS: SENNOSIDES 8.6 MG (SENOKOT) TAB PO SCH (21:03)
[2022-04-02] MEDS: DOCUSATE SODIUM 100 MG (COLACE) CAP PO SCH (21:03)
[2022-04-02 23:47] VITALS: BP 151/88
[2022-04-03 03:18] VITALS: BP 143/77
[2022-04-03] MEDS: NS IV 1000 ML 1,000 ML IV SCH ×2 (05:14→11:42)
[2022-04-03] MEDS: inSUlin ASPART (NovoLOG) 1 UNIT/0.01 ML (CHARGE PER UNIT) SQ SCH ×3 (05:43→17:34)
[2022-04-03 07:15] LABS: BASOPHILS % (AUTO) 0 % (0-10); EOSINOPHILS # (AUTO) 0.1 10^3/uL (0.0-0.3); EOSINOPHILS % (AUTO) 2 % (0-10); HEMATOCRIT 28 % (35-52); LYMPHOCYTES # (AUTO) 1.8 10^3/uL (1.0-4.0); LYMPHOCYTES % (AUTO) 32 % (12-44); MEAN CORPUSCULAR HEMOGLOBIN 27 pg (25-34); MEAN CORPUSCULAR HGB CONC 33 g/dL (32-36); MEAN CORPUSCULAR VOLUME 81 fL (80-99); MEAN PLATELET VOLUME 9.7 fL (9.0-12.2); MONOCYTES # (AUTO) 0.5 10^3/uL (0.0-1.0); MONOCYTES % (AUTO) 9 % (0-12); NEUTROPHILS # (AUTO) 3.2 10^3/uL (1.8-7.8); NEUTROPHILS % (AUTO) 57 % (42-75); PLATELET COUNT 268 10^3/uL (130-400); WHITE BLOOD COUNT 5.7 10^3/uL (4.3-11.0)
--- NOTE | 2022-04-03 07:17 | History & Physical-Hospitalist ---
History of Present Illness HPI/Chief Complaint CC: Right cindy-orbital cellulitis failed PO abx HPI: This is a 41yoF who presented to the ER with right eye swelling and failed PO abx and drops given by Dr Cisneros. Patient was assessed in ER with no evidence of abscess on CT w/o contrast. Vanc and Cefepime initiated and creatinine will be monitored closely due to stage iV CKD. Source: patient Exam Limitations: clinical condition Date Seen 04/03/22 Time Seen by a Provider: 10:00 Attending Physician [place] PCP Admitting Physician: Rhea Weems DO Attending Physician: Rhea Weems DO Referring Physician Date of Admission Apr 02, 2022 at 13:24 Home Medications & Allergies Home Medications Reviewed patient Home Medication Reconciliation performed by pharmacy medication reconciliations soil field technician and/or nursing. Patients Allergies have been reviewed. Allergies Allergies Coded Allergies lisinopril (Verified Allergy, Severe, COUGH, 12/29/20) Past Jbktzmc-Mlawev-Ocbnae Hx Patient Social History Marrital Status: Employed/Student: employed Tobacco Use?: No Smoking Status: Never a Smoker Use of E-Cig and/or Vaping dev: No Substance use?: No Alcohol Use?: No Pt feels they are or have been: No Immunizations Up To Date Date of Influenza Vaccine: Apr 28, 2020 First/Initial COVID19 Vaccinat: 03/14 Second COVID19 Vaccination Jose: 03/14 Tetanus Booster (TDap): More Than 5 Years Hepatitis A: No Hepatitis B: Yes Seasonal Allergies Seasonal Allergies: No Current Status status: No status: No Advance Directives: No Communicates: Verbally Primary Language: Guamanian Preferred Spoken Language: Guamanian Is interpretation needed?: No Implanted or Applied Medical D: None Past Medical History Surgeries: Section, Gallbladder, Tubal Ligation Asthma, Chronic Bronchitis High Cholesterol, Hypertension 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 Renal Failure Gastroesophageal Reflux, Polyps Diabetes, Insulin dep Blood Disorders: No Family Medical History No Pertinent Family Hx Review of Systems Constitutional: see HPI, malaise, weakness EENTM: no symptoms reported Respiratory: no symptoms reported Cardiovascular: no symptoms reported Gastrointestinal: no symptoms reported Genitourinary: no symptoms reported Musculoskeletal: no symptoms reported Skin: no symptoms reported Psychiatric/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: No Symptoms Reported All Other Systems Reviewed Negative Unless Noted: Yes Physical Exam Physical Exam Vital Signs Vital Signs - First Documented 04/02/22 04/02/22 04/03/22 11:05 16:48 11:58 Temp 37.0 Pulse 80 Resp 18 B/P (MAP) 187/154 (165) Pulse Ox 100 O2 Delivery Room Air O2 Flow Rate 0.00 FiO2 21 Capillary Refill : Less Than 3 Seconds Height, Weight, BMI Height: 5'2.00" Weight: 210lbs. oz. 95.270393ja; 52.04 BMI Method:Stated General Appearance: No Apparent Distress, Chronically ill Eyes: Right Eye Normal Inspection, Right Eye PERRL HEENT: Pharynx Normal, Moist Mucous Membranes, Other (right cindy-orbital area with edema and redness improved) Neck: Full Range of Motion, Normal Inspection, Non Tender Respiratory: Chest Non Tender, Lungs Clear, Normal Breath Sounds, No Accessory Muscle Use, No Respiratory Distress Cardiovascular: Regular Rate, Rhythm, No Edema, No Gallop, No JVD, No Murmur, Normal Peripheral Pulses Gastrointestinal: Normal Bowel Sounds, No Organomegaly, No Pulsatile Mass, Non Tender, Soft Back: Normal Inspection, No CVA Tenderness, No Vertebral Tenderness Extremity: Normal Capillary Refill, Normal Inspection, Normal Range of Motion, Non Tender, No Calf Tenderness, No Pedal Edema Neurologic/Psychiatric: Alert, Oriented x3, No Motor/Sensory Deficits, Normal Mood/Affect Skin: Normal Color, Warm/Dry Lymphatic: No Adenopathy Results Results/Procedures Labs Laboratory Tests 04/02/22 11:15 04/03/22 06:44 Patient resulted labs reviewed. Assessment/Plan Admission Diagnosis Assessment: Preseptal cellulitis of right eye failed PO abx and worsened CKD HTN Obesity Plan: IV Vanc and Cefepime to cover gram negative and gram positive organisms but MRSA highly suspected Admission Status: Inpatient Order (span 2 midnights) Reason for Inpatient Admission: preseptal cellulitis RHEA WEEMS DO Apr 03, 2022 07:17
[2022-04-03 07:31] LABS: ALBUMIN 2.5 GM/DL (3.2-4.5); POTASSIUM 4.3 MMOL/L (3.6-5.0)
[2022-04-03 07:33] LABS: CALCIUM 8.5 MG/DL (8.5-10.1)
[2022-04-03 07:34] LABS: TOTAL PROTEIN 5.4 GM/DL (6.4-8.2)
[2022-04-03 07:35] LABS: BILIRUBIN,TOTAL 0.2 MG/DL (0.1-1.0)
[2022-04-03 07:37] LABS: CREATININE SERUM 3.51 MG/DL (0.60-1.30)
[2022-04-03] MEDS: MEROPENEM 500 MG/NS 100 ML IVPB IV SCH ×6 (07:51→16:48)
[2022-04-03 07:55] VITALS: BP 128/60
[2022-04-03] MEDS: AtorvaSTATin TABLET 10 MG TABLET PO SCH (07:56)
[2022-04-03] MEDS: SENNOSIDES 8.6 MG (SENOKOT) TAB PO SCH ×2 (07:56→20:36)
[2022-04-03] MEDS: LOSARTAN 50 MG (COZAAR) TAB PO SCH (07:56)
[2022-04-03] MEDS: amLODIPine 5 MG (NORVASC) TAB PO SCH (07:56)
[2022-04-03] MEDS: DOCUSATE SODIUM 100 MG (COLACE) CAP PO SCH ×2 (07:56→20:37)
[2022-04-03] MEDS: CALCITRIOL 0.25 MCG (ROCALTROL) CAPSULE PO SCH (08:28)
[2022-04-03] MEDS ORDERED: LIRAGLUTIDE 1.6 MG SQ SCH ×2 (09:00)
[2022-04-03] MEDS ORDERED: NON-FORMULARY MEDICATION 1 EA EA (Linaclotide (Linzess) 145 MCG) PO SCH (09:00)
[2022-04-03 11:29] VITALS: BP 140/72
[2022-04-03] MEDS: TROUGH ORDER-PHARMACY XX NR (14:00)
[2022-04-03] MEDS: VANCOMYCIN 1 GM/NS 250 ML IVPB IV SCH ×2 (14:37)
[2022-04-03 15:30] VITALS: BP 157/81
[2022-04-03] MEDS: RT-ALBUTEROL HFA 8.5 GM INHALER IH PRN (16:55)
[2022-04-03 19:36] VITALS: BP 164/91
[2022-04-03 23:39] VITALS: BP 152/87
[2022-04-04] VITALS (7 sets, daily range): BP systolic 147–192; BP diastolic 75–89
[2022-04-04] MEDS: MEROPENEM 500 MG/NS 100 ML IVPB IV SCH ×8 (00:48→23:25)
[2022-04-04] MEDS: inSUlin ASPART (NovoLOG) 1 UNIT/0.01 ML (CHARGE PER UNIT) SQ SCH ×3 (05:37→17:02)
[2022-04-04 06:51] LABS: BASOPHILS % (AUTO) 0 % (0-10); EOSINOPHILS # (AUTO) 0.2 10^3/uL (0.0-0.3); EOSINOPHILS % (AUTO) 4 % (0-10); HEMATOCRIT 29 % (35-52); HEMOGLOBIN 9.5 g/dL (11.5-16.0); LYMPHOCYTES # (AUTO) 1.8 10^3/uL (1.0-4.0); LYMPHOCYTES % (AUTO) 26 % (12-44); MEAN CORPUSCULAR HEMOGLOBIN 27 pg (25-34); MEAN CORPUSCULAR HGB CONC 33 g/dL (32-36); MEAN CORPUSCULAR VOLUME 80 fL (80-99); MEAN PLATELET VOLUME 9.3 fL (9.0-12.2); MONOCYTES # (AUTO) 0.5 10^3/uL (0.0-1.0); MONOCYTES % (AUTO) 8 % (0-12); NEUTROPHILS # (AUTO) 4.1 10^3/uL (1.8-7.8); NEUTROPHILS % (AUTO) 62 % (42-75); PLATELET COUNT 300 10^3/uL (130-400); WHITE BLOOD COUNT 6.7 10^3/uL (4.3-11.0)
[2022-04-04 07:01] LABS: ALBUMIN 2.5 GM/DL (3.2-4.5); POTASSIUM 4.7 MMOL/L (3.6-5.0)
[2022-04-04 07:02] LABS: CALCIUM 8.7 MG/DL (8.5-10.1)
[2022-04-04 07:03] LABS: TOTAL PROTEIN 5.6 GM/DL (6.4-8.2)
[2022-04-04 07:05] LABS: BILIRUBIN,TOTAL 0.1 MG/DL (0.1-1.0)
[2022-04-04 07:07] LABS: CREATININE SERUM 3.54 MG/DL (0.60-1.30)
--- NOTE | 2022-04-04 07:51 | Progress Note - Hospitalist ---
Subjective HPI/CC On Admission Date Seen by Provider: Apr 04, 2022 Time Seen by Provider: 11:00 CC: Right cindy-orbital cellulitis failed PO abx HPI: This is a 41yoF who presented to the ER with right eye swelling and failed PO abx and drops given by Dr Cisneros. Patient was assessed in ER with no evidence of abscess on CT w/o contrast. Vanc and Cefepime initiated and creatinine will be monitored closely due to stage iV CKD. Subjective/Events-last exam Improved slowly Right eye edema improved No pain except headache Review of Systems General: Fatigue, Malaise Objective Exam Vital Signs Vital Signs Date Time Temp Pulse Resp B/P (MAP) Pulse Ox O2 Delivery O2 Flow Rate FiO2 04/04/22 14:34 36.3 94 97 21 04/04/22 14:26 Room Air 0.00 04/04/22 11:44 20 161/82 (108) Capillary Refill : Less Than 3 Seconds General Appearance: No Apparent Distress, WD/WN HEENT: Other (right eye edema improved less erythema) Respiratory: Lungs Clear Cardiovascular: Regular Rate, Rhythm Results/Procedures Lab Laboratory Tests 04/04/22 06:21 Patient resulted labs reviewed. Assessment/Plan Assessment and Plan Assess & Plan/Chief Complaint Assessment: Preseptal cellulitis of right eye failed PO abx and worsened CKD HTN Obesity Plan: IV Vanc and Cefepime to cover gram negative and gram positive organisms but MRSA highly suspected AIMEE ARMANDO DO Apr 04, 2022 07:51
[2022-04-04] MEDS: DOCUSATE SODIUM 100 MG (COLACE) CAP PO SCH ×2 (08:10→20:00)
[2022-04-04] MEDS: LOSARTAN 50 MG (COZAAR) TAB PO SCH (08:10)
[2022-04-04] MEDS: SENNOSIDES 8.6 MG (SENOKOT) TAB PO SCH ×2 (08:10→20:00)
[2022-04-04] MEDS: AtorvaSTATin TABLET 10 MG TABLET PO SCH (08:10)
[2022-04-04] MEDS: amLODIPine 5 MG (NORVASC) TAB PO SCH (08:10)
[2022-04-04] MEDS: CALCITRIOL 0.25 MCG (ROCALTROL) CAPSULE PO SCH (08:14)
[2022-04-04] MEDS: NS IV 1000 ML 1,000 ML IV SCH ×2 (08:16→20:00)
[2022-04-04] MEDS ORDERED: PATIENT MAY USE OWN MEDS, ALL MC SCH (13:00)
[2022-04-04] MEDS ORDERED: RT-ALBUTEROL SULF 2.5 MG/3 ML PRE-MIX VIAL INH PRN ×2 (15:00→18:00)
[2022-04-04] MEDS: TROUGH ORDER-PHARMACY XX NR (16:14)
[2022-04-04] MEDS: VANCOMYCIN 1 GM/NS 250 ML IVPB IV SCH ×2 (16:40)
[2022-04-04] MEDS: CALCIUM CARBONATE 500 MG (TUMS) TAB.CHEW PO PRN (17:02)
[2022-04-04] MEDS: RT-ALBUTEROL SULF 2.5 MG/3 ML PRE-MIX VIAL INH SCH (19:22)
[2022-04-04] MEDS: cloNIDine 0.1 MG (CATAPRES) TAB PO PRN (20:06)
[2022-04-05] MEDS: RT-ALBUTEROL HFA 8.5 GM INHALER IH PRN (03:19)
[2022-04-05 05:38] LABS: BASOPHILS % (AUTO) 0 % (0-10); EOSINOPHILS # (AUTO) 0.2 10^3/uL (0.0-0.3); EOSINOPHILS % (AUTO) 3 % (0-10); HEMATOCRIT 25 % (35-52); HEMOGLOBIN 8.2 g/dL (11.5-16.0); LYMPHOCYTES # (AUTO) 1.6 10^3/uL (1.0-4.0); LYMPHOCYTES % (AUTO) 23 % (12-44); MEAN CORPUSCULAR HEMOGLOBIN 27 pg (25-34); MEAN CORPUSCULAR HGB CONC 33 g/dL (32-36); MEAN CORPUSCULAR VOLUME 80 fL (80-99); MEAN PLATELET VOLUME 9.1 fL (9.0-12.2); MONOCYTES # (AUTO) 0.5 10^3/uL (0.0-1.0); MONOCYTES % (AUTO) 8 % (0-12); NEUTROPHILS # (AUTO) 4.4 10^3/uL (1.8-7.8); NEUTROPHILS % (AUTO) 65 % (42-75); PLATELET COUNT 249 10^3/uL (130-400); WHITE BLOOD COUNT 6.8 10^3/uL (4.3-11.0)
[2022-04-05 05:54] LABS: ALBUMIN 2.3 GM/DL (3.2-4.5)
[2022-04-05 05:55] LABS: CHLORIDE 117 MMOL/L (98-107); POTASSIUM 4.5 MMOL/L (3.6-5.0); SODIUM 141 MMOL/L (135-145)
[2022-04-05 05:56] LABS: CALCIUM 8.2 MG/DL (8.5-10.1)
[2022-04-05 05:57] LABS: GLUCOSE 138 MG/DL (70-105); TOTAL PROTEIN 4.9 GM/DL (6.4-8.2)
[2022-04-05 05:58] LABS: CARBON DIOXIDE 15 MMOL/L (21-32)
[2022-04-05 05:59] LABS: BILIRUBIN,TOTAL < 0.1 MG/DL (0.1-1.0)
[2022-04-05 06:00] LABS: ALKALINE PHOSPHATASE 110 U/L (40-136); CREATININE SERUM 3.69 MG/DL (0.60-1.30); GFR ESTIMATED 15
[2022-04-05] MEDS ORDERED: TROUGH ORDER-PHARMACY XX NR (06:00)
[2022-04-05 06:02] LABS: BUN/CREATININE RATIO 10
[2022-04-05 06:03] LABS: ALANINE AMINOTRANSFERASE 11 U/L (0-55)
[2022-04-05] MEDS: inSUlin ASPART (NovoLOG) 1 UNIT/0.01 ML (CHARGE PER UNIT) SQ SCH ×2 (06:03→13:06)
[2022-04-05 06:09] LABS: VANCOMYCIN,TROUGH 16.9 UG/ML (10.0-20.0)
[2022-04-05 08:00] VITALS: BP 164/87
[2022-04-05] MEDS ORDERED: VANCOMYCIN 1000 MG/VIAL ONE (08:32)
[2022-04-05] MEDS ORDERED: NS (IVPB) 250 ML ONE (08:32)
[2022-04-05] MEDS: MEROPENEM 500 MG/NS 100 ML IVPB IV SCH ×2 (08:41)
[2022-04-05] MEDS ORDERED: LEVO-55 PO (08:41)
[2022-04-05] MEDS: amLODIPine 5 MG (NORVASC) TAB PO SCH (08:42)
[2022-04-05] MEDS: DOCUSATE SODIUM 100 MG (COLACE) CAP PO SCH (08:42)
[2022-04-05] MEDS ORDERED: INSU100I23 SQ (08:42)
[2022-04-05] MEDS: CALCITRIOL 0.25 MCG (ROCALTROL) CAPSULE PO SCH (08:42)
[2022-04-05] MEDS: SENNOSIDES 8.6 MG (SENOKOT) TAB PO SCH (08:42)
[2022-04-05] MEDS: AtorvaSTATin TABLET 10 MG TABLET PO SCH (08:42)
[2022-04-05] MEDS: LOSARTAN 50 MG (COZAAR) TAB PO SCH (08:42)
[2022-04-05] MEDS ORDERED: INSU100I10 SQ ×2 (08:46)
[2022-04-05] MEDS ORDERED: LIRA0.6P3 SQ (08:47)
[2022-04-05] MEDS ORDERED: ATOR10TA66 PO (08:48)
[2022-04-05] MEDS ORDERED: ASPI-1238 PO (08:48)
[2022-04-05] MEDS ORDERED: VANCOMYCIN 1 GM/NS 250 ML IVPB IV SCH ×2 (09:00)
[2022-04-05] MEDS: RT-ALBUTEROL SULF 2.5 MG/3 ML PRE-MIX VIAL INH SCH (10:12)
[2022-04-05] MEDS: NS IV 1000 ML 1,000 ML IV SCH (11:36)
[2022-04-05] MEDS: CALCIUM CARBONATE 500 MG (TUMS) TAB.CHEW PO PRN (13:10)
[2022-04-05] MEDS ORDERED: ACET-93 PO (13:26)
[2022-04-05] MEDS ORDERED: AMLO-250 PO (13:26)
[2022-04-05] MEDS ORDERED: LNZ600T PO (13:26)
--- NOTE | 2022-04-05 13:27 | Discharge Summary ---
Discharge Summary Hospital Course Hospital Course Date of Admission: Apr 02, 2022 at 13:24 Admission Diagnosis : Preseptal cellulitis of right eye failed PO abx and worsened CKD HTN Obesity [facility] Date of [facility]charge: 04/05/22 Discharge Diagnosis: Preseptal cellulitis of right eye CKD HTN Obesity Hospital Course: Pt admitted and CT did not show post-septal involvement, improved on cefepime and vancomycin. Eye drainage with probably coag negative staph and mixed gram pos bacteria. Discharged on linezolid and instructed to follow up with Dr. Cisneros. Labs and Pending Lab Test: Laboratory Tests 04/04/22 14:04: Vancomycin Level Trough 21.9H 04/04/22 16:18: Glucometer 116H 04/04/22 20:58: Glucometer 117H 04/05/22 05:30: Vancomycin Level Trough 16.9, White Blood Count 6.8, Red Blood Count 3.07L, Hemoglobin 8.2L, Hematocrit 25L, Mean Corpuscular Volume 80, Mean Corpuscular Hemoglobin 27, Mean Corpuscular Hemoglobin Concent 33, Red Cell Distribution Width 12.5, Platelet Count 249, Mean Platelet Volume 9.1, Immature Granulocyte % (Auto) 1, Neutrophils (%) (Auto) 65, Lymphocytes (%) (Auto) 23, Monocytes (%) (Auto) 8, Eosinophils (%) (Auto) 3, Basophils (%) (Auto) 0, Neutrophils # (Auto) 4.4, Lymphocytes # (Auto) 1.6, Monocytes # (Auto) 0.5, Eosinophils # (Auto) 0.2, Basophils # (Auto) 0.0, Immature Granulocyte # (Auto) 0.1, Sodium Level 141, Potassium Level 4.5, Chloride Level 117H, Carbon Dioxide Level 15L, Anion Gap 9, Blood Urea Nitrogen 37H, Creatinine 3.69H, Estimat Glomerular Filtration Rate 15, BUN/Creatinine Ratio 10, Glucose Level 138H, Calcium Level 8.2L, Corrected Calcium 9.6, Total Bilirubin < 0.1L, Aspartate Amino Transf (AST/SGOT) 12, Alanine Aminotransferase (ALT/SGPT) 11, Alkaline Phosphatase 110, Total Protein 4.9L, Albumin 2.3L 04/05/22 05:32: Glucometer 125H 04/05/22 11:06: Glucometer 70 Microbiology 04/02/22 Gram Stain - Final, Resulted 04/02/22 Eye Culture - Preliminary, Resulted Probable Coag Negative Staph Home Meds Active Linezolid 600 Mg Tablet 600 Mg PO BID Acetaminophen 500 Mg Tablet 1,000 Mg PO Q8H PRN Amlodipine Besylate 5 Mg Tablet 5 Mg PO DAILY Reported Aspirin EC (Aspirin) 81 Mg Tablet.dr 81 Mg PO DAILY Atorvastatin Calcium 10 Mg Tablet 10 Mg PO DAILY Victoza 3-Jayme (Liraglutide) 0.6 Mg/0.1 Ml (18 Mg/3 Ml) Pen.injctr 1.6 Mg SQ DAILY Lantus Solostar (Insulin Glargine,Hum.rec.anlog) 100 Unit/Ml (3 Ml) Insuln.pen 25 Unit SQ HS Lantus Solostar (Insulin Glargine,Hum.rec.anlog) 100 Unit/Ml (3 Ml) Insuln.pen 38 Unit SQ DAILY Humalog Kwikpen (Insulin Lispro) 100 Unit/Ml Insuln.pen 25 Unit SQ TIDAC PRN BLOOD SUGAR GREATER THEN 200 Levofloxacin 500 Mg Tablet 500 Mg PO DAILY FILLED 03-30-2022 #7/7 DAY SUPPLY Albuterol Sulfate 2.5 Mg/3 Ml (0.083 %) Vial.neb 2.5 Mg INH BID PRN Proair Hfa (Albuterol Sulfate) 90 Mcg Hfa.aer.ad 90 Mcg INH QID PRN Losartan Potassium 50 Mg Tablet 50 Mg PO DAILY Calcitriol 0.25 Mcg Capsule 0.25 Mcg PO DAILY Tylenol Extra Strength (Acetaminophen) 500 Mg Tablet 1,500 Mg PO Q8H PRN TAKES 3 (500MG) TABLETS Furosemide 40 Mg Tablet 40 Mg PO BID PRN Linzess (Linaclotide) 145 Mcg Capsule 145 Mcg PO DAILY Assessment/Pt DC Instructions Follow up with primary doctor within a week of discharge. Follow up with Dr. Cisneros as directed. Discharge Diet: No Restrictions Activity as Tolerated: Yes Discharge Physical Examination Allergies: Coded Allergies: lisinopril (Verified Allergy, Severe, COUGH, 12/29/20) General Appearance: No Apparent Distress HEENT: Other (mild edema around right eye, EOMI) Respiratory: Lungs Clear, Normal Breath Sounds Cardiovascular: Regular Rate, Rhythm, No Murmur Skin: Normal Color, Warm/Dry Neurologic/Psychiatric: Alert, Normal Mood/Affect CHARLES YODER MD Apr 05, 2022 13:27
== END 2022-04-05 14:10 | disposition home or self-care (01) | DRG 603 ==
LOC: EDUNIT# 10:57 → ER 10:58 → 4TH 13:24
PROVIDERS: ADMIT Internal Medicine; ATTEND Family Medicine
DX: L03.213 Periorbital cellulitis (principal); N18.4 Chronic kidney disease, stage 4 (severe); Z68.43 Body mass index [BMI] 50.0-59.9, adult; I12.9 Hypertensive chronic kidney disease with stage 1 through stage 4 chronic kidney disease, or unspecified chronic kidney disease; E11.22 Type 2 diabetes mellitus with diabetic chronic kidney disease; E66.9 Obesity, unspecified; Z79.4 Long term (current) use of insulin; Z79.899 Other long term (current) drug therapy; E78.00 Pure hypercholesterolemia, unspecified; K21.9 Gastro-esophageal reflux disease without esophagitis
CPT/HCPCS: 36415; 70480; 80053; 80202; 82947; 84145; 84703; 85025; 85652; 86141; 87070; 94640; 94760

== ENCOUNTER 2022-08-16 13:10 | Emergency (ER) | payer OTHER ==
[~2022-08-16] VITALS: Ht 157.4 cm; Wt 119.7 kg
[~2022-08-16 13:10] MED LIST changes: +ALBU2.5V4 INH; +ALBU8.5H6 IH; +ALBU8.5H9 INH; +ASPI-1238 PO; +CALC0.253 PO; +LEVO-55 PO; +LIRA0.6P3 SQ; +LNZ600T PO; +LOSA50TA63 PO; -RT-ALBUINH IH
--- NOTE | 2022-08-16 14:08 | ED Chest Pain ---
General Chief Complaint: Chest Pain Stated Complaint: CHEST PAINS | Nursing Triage Note: PT AMB TO RM 3 WITH CC OF L SIDED CHEST PAIN X2-3 WEEKS. PT STATES SHE AT FIRST THOUGHT SHE JUST SLEPT WRONG BUT THE PAIN HAS NOT SUBSIDED. PT STATES IT HURTS WHEN SHE MOVES HER L ARM AND HER NECK. PT REPORTS GOES DOWN INTO HER SHOULDER. WHEN PRESSED ON THE PAIN IS REPORDUCABLE. PT A&OX4. DENIES INJURY AND SOA (MAIRA BYNUM) History of Present Illness Date Seen by Provider: Aug 16, 2022 Time Seen by Provider: 13:20 Initial Comments 41 yo F with h/o CKD IV, HTN, DM, and chronic bronchitis presents to the ED with c/o worsening L sided chest wall pain that radiates to back, L lateral neck, and L shoulder that started 2-3 weeks ago. Pt states that pain abruptly started 2-3 weeks when she woke up and initially believed it to be from sleeping wrong but became concerned when pain did not resolved and began to worsen. Pt states that pain started off dull and intermittent but today became constant, sharp and shooting. Pt rates her pain a 9/10 and states exacerbation of pain with movement of neck and and L shoulder. Pt took a dose of lortab this morning and had no relief. Pt notes that she is also started experiencing some lightheadedness and a 7/10 dull, frontal LEVY this morning. Pt denies worsening or new SOB, fever, chills, nausea, vomiting, diarrhea, visual changes, and palpitations. (MAIRA BYNUM) Initial Comments I have seen and evaluated the patient. I personally obtained the history, physical exam. I agree with the documented history and physical exam (CHINO MCDOWELL DO) Allergies and Home Medications Allergies Coded Allergies: lisinopril (Verified Allergy, Severe, COUGH, 12/29/20) Patient Home Medication List Home Medication List Reviewed: Yes (MAIRA BYNUM) Acetaminophen (Acetaminophen) 500 Mg Tablet, 1,000 MG PO Q8H PRN for PAIN-MILD (1-4) Prescribed by: CHARLES YODER on 04/05/22 1326 Albuterol Sulfate (Proair Hfa) 90 Mcg Hfa.aer.ad, 90 MCG INH QID PRN for WHEEZING, (Reported) Entered as Reported by: KATERINA BRUCE on 04/02/22 1658 Albuterol Sulfate (Albuterol Sulfate) 2.5 Mg/3 Ml (0.083 %) Vial.neb, 2.5 MG INH BID PRN for WHEEZING, (Reported) Entered as Reported by: KATERINA BRUCE on 04/02/22 1658 Amlodipine Besylate (Amlodipine Besylate) 5 Mg Tablet, 5 MG PO DAILY Prescribed by: CHARLES YODER on 04/05/22 1326 Aspirin (Aspirin EC) 81 Mg Tablet.dr, 81 MG PO DAILY, (Reported) Entered as Reported by: MADHAVI LONG on 04/05/22 0848 Atorvastatin Calcium (Atorvastatin Calcium) 10 Mg Tablet, 10 MG PO DAILY, (Reported) Entered as Reported by: MADHAVI LONG on 04/05/22 0848 Calcitriol (Calcitriol) 0.25 Mcg Capsule, 0.25 MCG PO DAILY, (Reported) Entered as Reported by: KATERINA BRUCE on 04/02/22 1602 Cyclobenzaprine HCl (Cyclobenzaprine HCl) 10 Mg Tablet, 10 MG PO Q6H Prescribed by: CHINO MCDOWELL MD on 08/16/22 1456 Furosemide (Furosemide) 40 Mg Tablet, 40 MG PO BID PRN for WATER RETENTION, (Reported) Entered as Reported by: MASOOD VILLAVICENCIO on 09/30/20 1237 Insulin Glargine,Hum.rec.anlog (Lantus Solostar) 100 Unit/Ml (3 Ml) Insuln.pen, 38 UNIT SQ DAILY, (Reported) Entered as Reported by: MADHAVI LONG on 04/05/22 0846 Insulin Glargine,Hum.rec.anlog (Lantus Solostar) 100 Unit/Ml (3 Ml) Insuln.pen, 25 UNIT SQ HS, (Reported) Entered as Reported by: MADHAVI LONG on 04/05/22 0846 Insulin Lispro (Humalog Kwikpen) 100 Unit/Ml Insuln.pen, 25 UNIT SQ TIDAC PRN for BLOOD SUGAR, (Reported) Entered as Reported by: MADHAVI LONG on 04/05/22 0842 Linaclotide (Linzess) 145 Mcg Capsule, 145 MCG PO DAILY, (Reported) Entered as Reported by: MASOOD VILLAVICENCIO on 09/30/20 1237 Linezolid (Linezolid) 600 Mg Tablet, 600 MG PO BID Prescribed by: CHARLES YODER on 04/05/22 1326 Liraglutide (Victoza 3-Jayme) 0.6 Mg/0.1 Ml (18 Mg/3 Ml) Pen.injctr, 1.6 MG SQ DAILY, (Reported) Entered as Reported by: MADHAVI LONG on 04/05/22 0847 Losartan Potassium (Losartan Potassium) 50 Mg Tablet, 50 MG PO DAILY, (Reported) Entered as Reported by: KATERINA BRUCE on 04/02/22 1602 Prednisone (Prednisone) 50 Mg Tab, 50 MG PO DAILY Prescribed by: CHINO MCDOWELL MD on 08/16/22 1419 Discontinued Medications Cyclobenzaprine HCl (Cyclobenzaprine HCl) 7.5 Mg Tablet, 7.5 MG PO Q6H Prescribed by: CHINO MCDOWELL MD on 08/16/22 1419 Review of Systems Review of Systems Constitutional: No chills, No fever EENTM: No Symptoms Reported Respiratory: Denies Cough, Denies Shortness of Air Cardiovascular: Chest Pain (L chest wall pain), Edema (chronic), Lightheadedness; Denies Palpitations Gastrointestinal: Denies Abdominal Pain, Denies Constipated, Denies Diarrhea, Denies Nausea, Denies Vomiting Musculoskeletal: back pain (L upper thoracic and cervical), neck pain (L lateral side) Skin: no symptoms reported Psychiatric/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: No Symptoms Reported Endocrine: No Symptoms Reported Hematologic/Lymphatic: No Symptoms Reported (MAIRA BYNUM) Past Tjaqbqx-Pygbgo-Culcwq Hx Patient Social History Tobacco Use?: No Substance use?: Yes Substance type: Marijuana Substance frequency: Couple times a week Alcohol Use?: No Pt feels they are or have been: No (MAIRA BYNUM) Immunizations Up To Date First/Initial COVID19 Vaccinat: 03/14 Second COVID19 Vaccination Jose: 03/14 Third COVID19 Vaccination Date: 03/14 (MAIRA BYNUM) Seasonal Allergies Seasonal Allergies: No (MAIRA BYNUM) Past Medical History Surgery/Hospitalization HX: PMH: DM 2, HTN, HIGH CHOL, CKD, RENAL FAILURE SX: NAT, C SECT X 3 Surgeries: Yes (CYST ) Section, Gallbladder, Tubal Ligation Respiratory: Yes Asthma, Chronic Bronchitis Cardiac: No High Cholesterol, Hypertension 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: 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 Genitourinary: Yes Renal Failure Gastrointestinal: No Gastroesophageal Reflux, Polyps, Gall Bladder Disease Musculoskeletal: No Endocrine: Yes Diabetes, Insulin dep HEENT: No (RETINA RUPYURE) Cancer: No Psychosocial: No Integumentary: No Blood Disorders: No (MAIRA BYNUM) Family Medical History No Pertinent Family Hx, Heart Disease (Sister-CHF), Cancer (sister-cervical), Hypertension (MAIRA BYNUM) Physical Exam Vital Signs Vital Signs - First Documented 08/16/22 13:21 Temp 36.6 Pulse 82 Resp 18 B/P (MAP) 176/80 (112) Pulse Ox 100 O2 Delivery Room Air (CHINO MCDOWELL DO) Vital Signs Capillary Refill : Less Than 3 Seconds (MAIRA BYNUM) Height, Weight, BMI Height: 5'2.00" Weight: 210lbs. oz. [id number]; 48.00 BMI Method:Stated General Appearance: No Apparent Distress, Obese HEENT: PERRL/EOMI, Moist Mucous Membranes Neck: Supple, Limited Range of Motion (all planes secondary to pain; L rotation>R rotation), Tender Lateral Respiratory: No Chest Non Tender (L upper chest wall into shoulder joint tenderness with palpation); Lungs Clear, Normal Breath Sounds, No Accessory Muscle Use, No Respiratory Distress Cardiovascular: Regular Rate, Rhythm, No Murmur Gastrointestinal: Non Tender, Soft Extremity: No Normal Range of Motion (L shoulder ROM limited in abduction greater than 90 degrees; reduced strength of L shoulder with resistance in all planes; sensation and pulses intact B/L); No Calf Tenderness, No Pedal Edema, Other (tenderness of L upper thoracic and cervical region with palpation) Neurologic/Psychiatric: Alert, Oriented x3 Skin: Normal Color, Warm/Dry (MAIRA BYNUM) Progress/Results/Core Measures Results/Orders My Orders Orders - CHINO MCDOWELL DO Ekg Tracing (08/16/22 13:48) (CHINO MCDOWELL DO) Vital Signs/I&O 08/16/22 08/16/22 13:21 14:26 Temp 36.6 Pulse 82 85 Resp 18 18 B/P (MAP) 176/80 (112) 155/78 Pulse Ox 100 100 O2 Delivery Room Air Room Air (CHINO MCDOWELL DO) Blood Pressure Mean: 112 Comment Sinus rhythm with a rate of 79 bpm. Normal intervals. Normal axis. No ST or T wave abnormalities. No ectopy. No STEMI. (CHINO MCDOWELL DO) Departure Communication (Admissions) Patient has very clear musculoskeletal pain on exam. She has a significant trigger point in her left trapezius region. I offered her trigger point injection with steroid, lidocaine. She declines. She states she rather not have a shot at this time. There is no evidence at all that this is coming from a cardiac or pulmonary etiology. She has had pain for a week, worse with moveme nt, twisting of her neck and direct palpation of her left trapezius region. She think she may have slept on it wrong however she has no known injury. No indication for imaging at this time. Please extremity. Pulses are strong and equal bilaterally. There is no evidence for respiratory complaints. We discharged home with supportive care in otherwise stable condition (CHINO MCDOWELL DO) Impression Primary Impression: Musculoskeletal pain Disposition: HOME, SELF-CARE Condition: Stable Departure-Patient Inst. Referrals: [facility] [place] (PCP/Family) Primary Care Physician Add. Discharge Instructions: You were seen in the emergency department today for left-sided shoulder, back and chest pain. This is clearly musculoskeletal on exam. I recommend you use the steroid medicine prescribed daily which should help with the inflammation. I have given you muscle relaxers which should also help with your pain. Perform stretching exercises as shown in the emergency department as well. Increase your fluids at home, rest as needed. Return to the emergency department for any severe concerns. Follow-up with your primary doctor for any nonemergent needs. All discharge instructions reviewed with patient and/or family. Voiced understanding. Scripts Cyclobenzaprine HCl (Cyclobenzaprine HCl) 10 Mg Tablet 10 MG PO Q6H for Muscle Spasms for 5 Days, #20 TAB Prov: JEREMIASANUPCHINONABILA Pineda DO 08/16/22 Prednisone (Prednisone) 50 Mg Tab 50 MG PO DAILY for 3 Days, #3 TAB Prov: CHINO MCDOWELL DO 08/16/22 MAIRA BYNUM Aug 16, 2022 14:08 CHINO MCDOWELL DO Aug 16, 2022 14:21
[2022-08-16] MEDS ORDERED: CYCL7.5T27 PO (14:19)
[2022-08-16] MEDS ORDERED: PRD50T PO (14:19)
[2022-08-16 14:26] VITALS: BP 155/78
[2022-08-16] MEDS ORDERED: CYCL10TA25 PO (14:56)
== END 2022-08-16 14:26 | disposition home or self-care (01) ==
LOC: EDUNIT# 13:10 → ER 13:12
DX: R07.89 Other chest pain (principal); M25.512 Pain in left shoulder; M54.2 Cervicalgia; M54.6 Pain in thoracic spine; E66.9 Obesity, unspecified; Z68.42 Body mass index [BMI] 45.0-49.9, adult
CPT/HCPCS: 93005

== ENCOUNTER 2022-09-22 06:22 | Emergency (ER) | payer OTHER ==
[~2022-09-22] VITALS: Ht 158 cm; Wt 120.0 kg
[~2022-09-22 06:22] MED LIST changes: +CYCL10TA25 PO; +CYCL7.5T27 PO; +PRD50T PO
--- NOTE | 2022-09-22 06:41 | ED General ---
General Chief Complaint: Cough/Cold/Flu Symptoms Stated Complaint: SOB,COUGH,SORE THROAT Nursing Triage Note: Pt presents with c/o cough, soa, sore throat, runny nose for approx 2 weeks. She states she thinks she has pneumonia. She has been seen by PCP x2, currently taking amoxicillian. Source of Information: Patient Exam Limitations: No Limitations History of Present Illness Date Seen by Provider: Sep 22, 2022 Time Seen by Provider: 06:25 Initial Comments This 41-year-old woman presents to the emergency room with flulike symptoms for about 3 weeks. Symptoms include cough, shortness of breath, pleuritic chest pain on the right, sore throat, vomiting, and diarrhea. She denies any abdomi nal pain. She has chronic kidney disease with anticipation of needing dialysis. She recently had a fistula created. She has history of chronic bronchitis as well and insulin requiring diabetes. She has been seen in the clinic twice. She reports no testing for influenza or COVID-19 has been performed. She was prescribed amoxicillin and Tessalon Perles but reports no improvement. She denies fever. She is mildly tachycardic during assessment, but vital signs are otherwise normal. She says she feels like she has pneumonia. Her motorcycle designer is Dr. Dangelo. Her PCP is Taisha at [facility]. Allergies and Home Medications Allergies Coded Allergies: lisinopril (Verified Allergy, Severe, COUGH, 12/29/20) Patient Home Medication List Home Medication List Reviewed: Yes Acetaminophen (Acetaminophen) 500 Mg Tablet, 1,000 MG PO Q8H PRN for PAIN-MILD (1-4) Prescribed by: CHARLES YODER on 04/05/22 1326 Albuterol Sulfate (Proair Hfa) 90 Mcg Hfa.aer.ad, 90 MCG INH QID PRN for WHEEZING, (Reported) Entered as Reported by: KATERINA BRUCE on 04/02/22 1658 Albuterol Sulfate (Albuterol Sulfate) 2.5 Mg/3 Ml (0.083 %) Vial.neb, 2.5 MG INH BID PRN for WHEEZING, (Reported) Entered as Reported by: KATERINA BRUCE on 04/02/22 1658 Amlodipine Besylate (Amlodipine Besylate) 5 Mg Tablet, 5 MG PO DAILY Prescribed by: CHARLES YODER on 04/05/22 1326 Aspirin (Aspirin EC) 81 Mg Tablet.dr, 81 MG PO DAILY, (Reported) Entered as Reported by: MADHAVI LONG on 04/05/22 0848 Atorvastatin Calcium (Atorvastatin Calcium) 10 Mg Tablet, 10 MG PO DAILY, (Reported) Entered as Reported by: MADHAVI LONG on 04/05/22 0848 Calcitriol (Calcitriol) 0.25 Mcg Capsule, 0.25 MCG PO DAILY, (Reported) Entered as Reported by: KATERINA BRUCE on 04/02/22 1602 Cyclobenzaprine HCl (Cyclobenzaprine HCl) 10 Mg Tablet, 10 MG PO Q6H Prescribed by: CHINO MCDOWELL MD on 08/16/22 1456 Furosemide (Furosemide) 40 Mg Tablet, 40 MG PO BID PRN for WATER RETENTION, (Reported) Entered as Reported by: MASOOD VILLAVICENCIO on 09/30/20 1237 Hydrocodone/Acetaminophen (Hydrocodone-Acetamin 5-325 mg) 5 Mg-325 Mg Tablet, 0.5-1 TAB PO Q4H PRN for PAIN-MODERATE (5-7) Prescribed by: PRETTY HORNE on 09/22/22 1736 Insulin Glargine,Hum.rec.anlog (Lantus Solostar) 100 Unit/Ml (3 Ml) Insuln.pen, 38 UNIT SQ DAILY, (Reported) Entered as Reported by: MADHAVI LONG on 04/05/22 0846 Insulin Glargine,Hum.rec.anlog (Lantus Solostar) 100 Unit/Ml (3 Ml) Insuln.pen, 25 UNIT SQ HS, (Reported) Entered as Reported by: MADHAVI LONG on 04/05/22 0846 Insulin Lispro (Humalog Kwikpen) 100 Unit/Ml Insuln.pen, 25 UNIT SQ TIDAC PRN for BLOOD SUGAR, (Reported) Entered as Reported by: MADHAVI LONG on 04/05/22 0842 Linaclotide (Linzess) 145 Mcg Capsule, 145 MCG PO DAILY, (Reported) Entered as Reported by: MASOOD VILLAVICENCIO on 09/30/20 1237 Linezolid (Linezolid) 600 Mg Tablet, 600 MG PO BID Prescribed by: CHARLES YODER on 04/05/22 1326 Liraglutide (Victoza 3-Jayme) 0.6 Mg/0.1 Ml (18 Mg/3 Ml) Pen.injctr, 1.6 MG SQ DAILY, (Reported) Entered as Reported by: MADHAVI LONG on 04/05/22 0847 Losartan Potassium (Losartan Potassium) 50 Mg Tablet, 50 MG PO DAILY, (Reported) Entered as Reported by: KATERINA BRUCE on 04/02/22 1602 Prednisone (Prednisone) 50 Mg Tab, 50 MG PO DAILY Prescribed by: CHINO MCDOWELL MD on 08/16/22 1419 Prednisone (Prednisone) 20 Mg Tab, 20 MG PO DAILY Prescribed by: PRETTY HORNE on 09/22/22 1735 Review of Systems Review of Systems Constitutional: no symptoms reported EENTM: see HPI Respiratory: see HPI Cardiovascular: no symptoms reported Gastrointestinal: see HPI Genitourinary: no symptoms reported : No Musculoskeletal: no symptoms reported Skin: no symptoms reported Psychiatric/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: No Symptoms Reported Hematologic/Lymphatic: No Symptoms Reported Immunological/Allergic: no symptoms reported Past Mccabsw-Ftwshq-Bftupa Hx Patient Social History Tobacco Use?: No Use of E-Cig and/or Vaping dev: No Substance use?: Yes Substance type: Marijuana Alcohol Use?: No Immunizations Up To Date First/Initial COVID19 Vaccinat: 03/14 Second COVID19 Vaccination Jose: 03/14 Third COVID19 Vaccination Date: 03/14 Seasonal Allergies Seasonal Allergies: No Past Medical History Surgery/Hospitalization HX: PMH: DM 2, HTN, HIGH CHOL, CKD, RENAL FAILURE SX: NAT, C SECT X 3 Surgeries: Yes (left ear cyst removal, uterine ablation, dialysis fistula) Breast (mass resection), Section, Gallbladder, Tubal Ligation Respiratory: Yes Asthma, Chronic Bronchitis Cardiac: Yes High Cholesterol, Hypertension 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: No : 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 oz. 95.453355et; 48.00 BMI Method:Stated General Appearance: No Apparent Distress, WD/WN, Obese HEENT: PERRL/EOMI, TMs Normal, Normal ENT Inspection, Pharynx Normal Neck: Normal Inspection; No JVD Respiratory: Lungs Clear, Normal Breath Sounds, No Accessory Muscle Use Cardiovascular: No Murmur, Tachycardia, Other (Mild LE edema) Gastrointestinal: Normal Bowel Sounds, Non Tender, Soft Extremity: Normal Inspection, Non Tender, No Calf Tenderness, Other (mild LE edema) Neurologic/Psychiatric: Alert, Oriented x3, No Motor/Sensory Deficits, Normal Mood/Affect Skin: Normal Color, Warm/Dry Progress/Results/Core Measures Suspected Sepsis SIRS Temperature: Pulse: 100 Respiratory Rate: 20 Laboratory Tests 09/22/22 07:01: White Blood Count 9.3 Blood Pressure 140 /69 Mean: 92 Laboratory Tests 09/22/22 07:01: Creatinine 5.65H, Platelet Count 304 Results/Orders Lab Results Laboratory Tests Test 09/22/22 06:45 09/22/22 07:01 09/22/22 09:57 Range/Units Influenza Type A (RT-PCR) Not Detected Not Detecte Influenza Type B (RT-PCR) Not Detected Not Detecte SARS-CoV-2 RNA (RT-PCR) Not Detected Not Detecte White Blood Count 9.3 4.3-11.0 10^3/uL Red Blood Count 3.60 L 3.80-5.11 10^6/uL Hemoglobin 9.3 L 11.5-16.0 g/dL Hematocrit 29 L 35-52 % Mean Corpuscular Volume 81 80-99 fL Mean Corpuscular Hemoglobin 26 25-34 pg Mean Corpuscular Hemoglobin Concent 32 32-36 g/dL Red Cell Distribution Width 14.5 10.0-14.5 % Platelet Count 304 130-400 10^3/uL Mean Platelet Volume 9.5 9.0-12.2 fL Immature Granulocyte % (Auto) 1 % Neutrophils (%) (Auto) 65 42-75 % Lymphocytes (%) (Auto) 20 12-44 % Monocytes (%) (Auto) 10 0-12 % Eosinophils (%) (Auto) 4 0-10 % Basophils (%) (Auto) 0 0-10 % Neutrophils # (Auto) 6.0 1.8-7.8 10^3/uL Lymphocytes # (Auto) 1.8 1.0-4.0 10^3/uL Monocytes # (Auto) 1.0 0.0-1.0 10^3/uL Eosinophils # (Auto) 0.4 H 0.0-0.3 10^3/uL Basophils # (Auto) 0.0 0.0-0.1 10^3/uL Immature Granulocyte # (Auto) 0.1 0.0-0.1 10^3/uL Percent Immature Platelet Fraction 1.1 0.0-7.6 % Sodium Level 139 135-145 MMOL/L Potassium Level 4.9 3.6-5.0 MMOL/L Chloride Level 110 H 98-107 MMOL/L Carbon Dioxide Level 19 L 21-32 MMOL/L Anion Gap 10 5-14 MMOL/L Blood Urea Nitrogen 59 H 7-18 MG/DL Creatinine 5.65 H 0.60-1.30 MG/DL Estimat Glomerular Filtration Rate 9 BUN/Creatinine Ratio 10 Glucose Level 168 H 70-105 MG/DL Calcium Level 8.6 8.5-10.1 MG/DL C-Reactive Protein High Sensitivity 0.24 0.00-0.50 MG/DL B-Type Natriuretic Peptide 29.8 <100.0 PG/ML Smear Scan YES D-Dimer 0.92 H 0.00-0.49 UG/ML My Orders Orders - PRETTY SULLIVAN MD Covid 19 Inhouse Test (09/22/22 06:27) Influenza A And B By Pcr (09/22/22 06:27) Basic Metabolic Panel (09/22/22 06:39) Cbc With Automated Diff (09/22/22 06:39) Hs C Reactive Protein (09/22/22 06:39) Ed Iv/Invasive Line Start (09/22/22 06:41) Bnp Kanwal (09/22/22 06:49) Chest Pa/Lat (2 View) (09/22/22 07:18) Ns Iv 1000 Ml (Sodium Chloride 0.9%) (09/22/22 08:45) Fibrin Degradation Products (09/22/22 08:47) Lung Scan Perfusion (09/22/22 11:23) Vital Signs/I&O 09/22/22 09/22/22 06:33 17:52 Temp 36.0 Pulse 100 Resp 20 B/P (MAP) 140/69 (92) 135/86 Capillary Refill : Less Than 3 Seconds Blood Pressure Mean: 92 Progress Note #1: Time: 06:46 Progress Note Patient was interviewed and examined. Given her significant comorbidities, work-up is appropriate at this point. She has not been swabbed for viruses, so that will be done also. Progress Note #2: Progress Note This case and patient's labs were reviewed with Dr. Nahomy Dangelo, motorcycle designer with patient's nephrology group. She recommended IV fluids as her creatinine has been progressively slipping recently in comparison with her other outpatient labs. A liter of normal saline was infused. Chest x-ray and labs were reviewed including BMP, BNP, and CBC. I discussed options for further evaluation with the patient. We discussed the possibility of screening for pulmonary embolus as there was not any other pathology identified to explain her pain. Patient wished to proceed with D-dimer screening. D-dimer was mildly elevated. We proceeded to further evaluate for pulmonary embolism with VQ scan. Unfortunately this prolonged her ER visit by many hours as the nuclear material was ordered in from out of town. Ultimately, VQ scan was negative for pulmonary embolus and patient was discharged home. See discharge instructions for further discussion. Diagnostic Imaging Diagonstic Imaging: Xray Plain Films/CT/US/NM/MRI: chest Comments NAME: J[facility] RENDON [facility] REC#: [id number] PT STATUS: REG ER : 1980 PHYSICIAN: PRETTY SULLIVAN MD ADMIT DATE: 09/22/22/ER Signed Date of Exam:09/22/22 CHEST PA/LAT (2 VIEW) EXAMINATION: Chest 2 view HISTORY: Cough COMPARISON: 10/15/2021 FINDINGS: Heart size and pulmonary vasculature are normal. The lungs are clear without consolidation, pleural effusion, or pneumothorax. The osseous structures are intact. IMPRESSION: 1. No acute radiographic abnormality in the chest. Dictated by: Dictated on workstation # [id number] Dict: 09/22/2231 Trans: 09/22/22 0840 [facility] [id number] Interpreted by: ALEXANDRA PIRES DO Electronically signed by: ALEXANDRA PIRES DO 09/22/22 0840 Diagonstic Imaging: Nuclear Med Plain Films/CT/US/NM/MRI: chest Comments NAME: JT RENDON [facility] REC#: [id number] PT STATUS: REG ER : 1980 PHYSICIAN: PRETTY SULLIVAN MD ADMIT DATE: 09/22/22/ER Draft Date of Exam:09/22/22 LUNG SCAN PERFUSION EXAMINATION: Nuclear medicine perfusion scintigraphy of the lungs. HISTORY: Shortness of breath. COMPARISON: 08/17/2021. FINDINGS: The patient was administered 5.2 mCi of technetium-99m MAA. No perfusion images were obtained. There is physiologic distribution of radiotracer. No perfusion defect is seen. No evidence of pulmonary embolism. IMPRESSION: 1. No evidence of pulmonary embolism. Dictated on workstation # [id number] Dict: 09/22/22 1702 Trans: 09/22/22 1715 [id number] Interpreted by: ASHOK QUEVEDO MD Departure Impression Primary Impression: Pleuritic chest pain Additional Impressions: Chronic kidney disease Qualified Codes: N18.9 - Chronic kidney disease, unspecified Upper respiratory infection Qualified Codes: J06.9 - Acute upper respiratory infection, unspecified Disposition: 01 HOME, SELF-CARE Condition: Improved Departure-Patient Inst. Decision time for Depature: 17:32 Referrals: [facility] [place] (PCP/Family) Primary Care Physician Patient Instructions: Chronic Kidney Disease, Pleuritic Chest Pain ED Add. Discharge Instructions: Drink plenty of clear liquids to stay well-hydrated. Follow-up with your motorcycle designer as directed. For your pain you may use Tylenol for more mild pain. For more severe pain you may use hydrocodone as prescribed. Hydrocodone has Tylenol in it, so do not take both Tylenol and hydrocodone. Hydrocodone may cause drowsiness so do not drive, operate machinery, or make important decisions while on hydrocodone. Hydrocodone may also cause constipation, so you may wish to use a stool softener such as Colace while on hydrocodone. Monitor your blood sugars very closely while you are on prednisone and adjust insulin doses if needed to compensate for high blood sugars. Follow-up with your primary care provider soon as possible. All discharge instructions reviewed with patient and/or family. Voiced und erstanding. Scripts Hydrocodone/Acetaminophen (Hydrocodone-Acetamin 5-325 mg) 5 Mg-325 Mg Tablet 0.5-1 TAB PO Q4H PRN for PAIN-MODERATE (5-7), #10 TAB Prov: PRETTY SULLIVAN MD 09/22/22 Prednisone (Prednisone) 20 Mg Tab 20 MG PO DAILY, #3 TAB 0 Refills Prov: PRETTY SULLIVAN MD 09/22/22 Copy Copies To 1: [facility] Copies To 2: NGOC DANGELO MD, JOSHUA T MD Sep 22, 2022 06:41
[2022-09-22 07:07] LABS: EOSINOPHILS # (AUTO) 0.4 10^3/uL (0.0-0.3); EOSINOPHILS % (AUTO) 4 % (0-10); MEAN PLATELET VOLUME 9.5 fL (9.0-12.2); MONOCYTES % (AUTO) 10 % (0-12)
[2022-09-22 07:09] LABS: BASOPHILS % (AUTO) 0 % (0-10); HEMATOCRIT 29 % (35-52); HEMOGLOBIN 9.3 g/dL (11.5-16.0); LYMPHOCYTES # (AUTO) 1.8 10^3/uL (1.0-4.0); LYMPHOCYTES % (AUTO) 20 % (12-44); MEAN CORPUSCULAR HEMOGLOBIN 26 pg (25-34); MEAN CORPUSCULAR HGB CONC 32 g/dL (32-36); MEAN CORPUSCULAR VOLUME 81 fL (80-99); NEUTROPHILS % (AUTO) 65 % (42-75); PLATELET COUNT 304 10^3/uL (130-400); WHITE BLOOD COUNT 9.3 10^3/uL (4.3-11.0)
[2022-09-22 07:23] LABS: SMEAR SCAN COMMENT YES
[2022-09-22 07:25] LABS: POTASSIUM 4.9 MMOL/L (3.6-5.0)
[2022-09-22 07:26] LABS: CALCIUM 8.6 MG/DL (8.5-10.1)
[2022-09-22 07:31] LABS: CREATININE SERUM 5.65 MG/DL (0.60-1.30)
--- NOTE | 2022-09-22 08:06 | Diagnostic Imaging Report ---
EXAMINATION: Chest 2 view HISTORY: Cough COMPARISON: 10/15/2021 FINDINGS: Heart size and pulmonary vasculature are normal. The lungs are clear without consolidation, pleural effusion, or pneumothorax. The osseous structures are intact. IMPRESSION: 1. No acute radiographic abnormality in the chest. Dictated by: Dictated on workstation # [id number]
[2022-09-22] MEDS ORDERED: NS IV 1000 ML 1,000 ML IV SCH (08:45)
--- NOTE | 2022-09-22 17:16 | Diagnostic Imaging Report ---
EXAMINATION: Nuclear medicine perfusion scintigraphy of the lungs. HISTORY: Shortness of breath. COMPARISON: 08/17/2021. FINDINGS: The patient was administered 5.2 mCi of technetium-99m MAA. No perfusion images were obtained. There is physiologic distribution of radiotracer. No perfusion defect is seen. No evidence of pulmonary embolism. IMPRESSION: 1. No evidence of pulmonary embolism. Dictated by: Dictated on workstation # [id number]
[2022-09-22] MEDS ORDERED: PRD20T PO (17:35)
[2022-09-22] MEDS ORDERED: ACHD5005 PO (17:35)
[2022-09-22 17:52] VITALS: BP 135/86
== END 2022-09-22 17:52 | disposition home or self-care (01) ==
LOC: EDUNIT# 06:22 → ER 06:25
DX: R07.81 Pleurodynia (principal); I12.9 Hypertensive chronic kidney disease with stage 1 through stage 4 chronic kidney disease, or unspecified chronic kidney disease; E11.22 Type 2 diabetes mellitus with diabetic chronic kidney disease; N18.9 Chronic kidney disease, unspecified; J06.9 Acute upper respiratory infection, unspecified; R79.1 Abnormal coagulation profile; E66.9 Obesity, unspecified; Z68.42 Body mass index [BMI] 45.0-49.9, adult; Z20.822 Contact with and (suspected) exposure to COVID-19
CPT/HCPCS: 71046; 78580; 80048; 83880; 85025; 85379; 86141; 87636; 99283; A9540; 36415

== ENCOUNTER 2022-11-12 06:41 | Emergency (ER) | payer OTHER ==
[~2022-11-12] VITALS: Ht 157.5 cm; Wt 119.7 kg
[~2022-11-12 06:41] MED LIST changes: -INSU100I29 SQ; +INSU100I30 SQ; +PRD20T PO
--- NOTE | 2022-11-12 07:06 | ED General ---
General Chief Complaint: Respiratory Problems Stated Complaint: SOB Source of Information: Patient Exam Limitations: No Limitations History of Present Illness Date Seen by Provider: Nov 12, 2022 Time Seen by Provider: 07:06 Initial Comments Patient is a 42-year-old female with a history of high blood pressure, diabetes, end-stage renal disease on hemodialysis who presents to the emergency room with a chief complaint of right upper chest discomfort and significant shortness of breath when she started dialysis this morning. Patient had her original fistula surgery by Dr. Seven cordoba at [facility] in [facility] in June. She states they tried multiple times to access her fistula but because the vessel was so deep every time they started she ended up getting blood accumulating in her right upper arm. She states on November 03 Dr. Bess did a revision of her fistula. She states at the time her upper arm was still bruised, swollen and "hard". She states it is continued to be painful. She does have an access now in her right upper chest (Mahurkar catheter) for dialysis. Her dialysis days are Mondays and Fridays. Her last dialysis was this past Tuesday on 11/08. She states today when she was hooked up and they started dialysis she had sudden onset of shortness of breath. She states when the catheter was flushed she felt it in her neck. She also has discomfort in her neck. She reports no fevers. No productive cough. No exertional dyspnea or shortness of breath at rest currently. Her symptoms of shortness of breath and chest discomfort stopped when the dialysis nurse stopped the dialysis machine. Dialysis nurse sent her from the clinic this morning for evaluation of her dialysis catheter and for her shortness of breath. Timing/Duration: 1 Hour Severity: Severe Modifying Factors: improves with Other (stopping dialysis) Associated Systoms: Chest Pain, Shortness of Air Allergies and Home Medications Allergies Coded Allergies: lisinopril (Verified Allergy, Severe, COUGH, 12/29/20) Patient Home Medication List Home Medication List Reviewed: Yes Acetaminophen (Acetaminophen) 500 Mg Tablet, 1,000 MG PO Q8H PRN for PAIN-MILD (1-4) Prescribed by: CHARLES YODER on 04/05/22 1326 Albuterol Sulfate (Proair Hfa) 90 Mcg Hfa.aer.ad, 90 MCG INH QID PRN for WHEEZING, (Reported) Entered as Reported by: KATERINA BRUCE on 04/02/22 1658 Albuterol Sulfate (Albuterol Sulfate) 2.5 Mg/3 Ml (0.083 %) Vial.neb, 2.5 MG INH BID PRN for WHEEZING, (Reported) Entered as Reported by: KATERINA BRUCE on 04/02/22 1658 Amlodipine Besylate (Amlodipine Besylate) 5 Mg Tablet, 5 MG PO DAILY Prescribed by: CHARLES YODER on 04/05/22 1326 Aspirin (Aspirin EC) 81 Mg Tablet.dr, 81 MG PO DAILY, (Reported) Entered as Reported by: MADHAVI LONG on 04/05/22 0848 Atorvastatin Calcium (Atorvastatin Calcium) 10 Mg Tablet, 10 MG PO DAILY, (Reported) Entered as Reported by: MADHAVI LONG on 04/05/22 0848 Calcitriol (Calcitriol) 0.25 Mcg Capsule, 0.25 MCG PO DAILY, (Reported) Entered as Reported by: KATERINA BRUCE on 04/02/22 1602 Cyclobenzaprine HCl (Cyclobenzaprine HCl) 10 Mg Tablet, 10 MG PO Q6H Prescribed by: CHINO MCDOWELL MD on 08/16/22 1456 Furosemide (Furosemide) 40 Mg Tablet, 40 MG PO BID PRN for WATER RETENTION, (Reported) Entered as Reported by: MASOOD VILLAVICENCIO on 09/30/20 1237 Hydrocodone/Acetaminophen (Hydrocodone-Acetamin 5-325 mg) 5 Mg-325 Mg Tablet, 0.5-1 TAB PO Q4H PRN for PAIN-MODERATE (5-7) Prescribed by: PRETTY HORNE on 09/22/22 1736 Insulin Glargine,Hum.rec.anlog (Lantus Solostar) 100 Unit/Ml (3 Ml) Insuln.pen, 38 UNIT SQ DAILY, (Reported) Entered as Reported by: MADHAVI LONG on 04/05/22 0846 Insulin Glargine,Hum.rec.anlog (Lantus Solostar) 100 Unit/Ml (3 Ml) Insuln.pen, 25 UNIT SQ HS, (Reported) Entered as Reported by: MADHAVI LONG on 04/05/22 0846 Insulin Lispro (Humalog Kwikpen) 100 Unit/Ml Insuln.pen, 25 UNIT SQ TIDAC PRN for BLOOD SUGAR, (Reported) Entered as Reported by: MADHAVI LONG on 04/05/22 0842 Linaclotide (Linzess) 145 Mcg Capsule, 145 MCG PO DAILY, (Reported) Entered as Reported by: MASOOD VILLAVICENCIO on 09/30/20 1237 Linezolid (Linezolid) 600 Mg Tablet, 600 MG PO BID Prescribed by: CHARLES YODER on 04/05/22 1326 Liraglutide (Victoza 3-Jayme) 0.6 Mg/0.1 Ml (18 Mg/3 Ml) Pen.injctr, 1.6 MG SQ DAILY, (Reported) Entered as Reported by: MADHAVI LONG on 04/05/22 0847 Losartan Potassium (Losartan Potassium) 50 Mg Tablet, 50 MG PO DAILY, (Reported) Entered as Reported by: KATERINA BRUCE on 04/02/22 1602 Prednisone (Prednisone) 50 Mg Tab, 50 MG PO DAILY Prescribed by: CHINO MCDOWELL MD on 08/16/22 1419 Prednisone (Prednisone) 20 Mg Tab, 20 MG PO DAILY Prescribed by: PRETTY HORNE on 09/22/22 1735 Review of Systems Review of Systems Constitutional: see HPI EENTM: other (right neck pain where mahurker catheter is in place) Respiratory: short of breath Cardiovascular: chest pain (at entrance point of catheter) Gastrointestinal: no symptoms reported Genitourinary: no symptoms reported Musculoskeletal: other (right arm pain and swelling) Skin: other (redness right upper arm) All Other Systems Reviewed Negative Unless Noted: Yes Past Zhbzawv-Yyawuk-Kgwoyu Hx Patient Social History Tobacco Use?: No Use of E-Cig and/or Vaping dev: No Substance use?: Yes Substance type: Marijuana Substance frequency: Daily Alcohol Use?: No Pt feels they are or have been: No Immunizations Up To Date Influenza Vaccine Up-to-Date: Yes; Up-to-Date First/Initial COVID19 Vaccinat: 2020 Second COVID19 Vaccination Jose: 2020 Third COVID19 Vaccination Date: 03/14 Seasonal Allergies Seasonal Allergies: No Past Medical History Surgery/Hospitalization HX: PMH: DM 2, HTN, HIGH CHOL, CKD, RENAL FAILURE SX: NAT, C SECT X 3 Surgeries: Yes (left ear cyst removal, uterine ablation, dialysis fistula) Breast, Section, Gallbladder, Tubal Ligation Respiratory: Yes Asthma, Chronic Bronchitis Cardiac: Yes High Cholesterol, Hypertension 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: No [employer]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 oz. [id number]; 48.00 BMI Method:Stated General Appearance: No Apparent Distress, WD/WN, Obese Eyes: Bilateral Eye Normal Inspection, Bilateral Eye PERRL, Bilateral Eye EOMI HEENT: PERRL/EOMI Neck: Other (induration, tenderness right neck where catheter traverses) Respiratory: Lungs Clear, Normal Breath Sounds, No Accessory Muscle Use, No Respiratory Distress, Other (catheter site right upper chest non tender, no increased warmth or erythema) Cardiovascular: Regular Rate, Rhythm, Normal Peripheral Pulses, Other (palpable thrill right AC space) Extremity: Other (right upper extremity anterior bicep hot, erythema that extends medially, significant swelling and tenderness; no drainage.) Neurologic/Psychiatric: Alert, Oriented x3, No Motor/Sensory Deficits, Normal Mood/Affect Skin: Normal Color, Warm/Dry, Other (as above right upper arm) Focused Exam Lactate Level 11/12/22 07:55: Lactic Acid Level 0.87 Lactic Acid Level Laboratory Tests Test 11/12/22 07:55 Lactic Acid Level 0.87 MMOL/L (0.50-2.00) Progress/Results/Core Measures Suspected Sepsis SIRS Temperature: Pulse: Respiratory Rate: Laboratory Tests 11/12/22 09:37: White Blood Count 14.9H Blood Pressure / Mean: 11/12/22 07:55: Lactic Acid Level 0.87 11/12/22 07:55: Lactic Acid Level 0.87 Laboratory Tests 11/12/22 09:37: Platelet Count 128L 11/12/22 09:49: Creatinine 5.73H Results/Orders Lab Results Laboratory Tests Test 11/12/22 07:55 11/12/22 09:37 11/12/22 09:49 Range/Units Lactic Acid Level 0.87 0.50-2.00 MMOL/L White Blood Count 14.9 H 4.3-11.0 10^3/uL Red Blood Count 3.07 L 3.80-5.11 10^6/uL Hemoglobin 8.2 L 11.5-16.0 g/dL Hematocrit 26 L 35-52 % Mean Corpuscular Volume 83 80-99 fL Mean Corpuscular Hemoglobin 27 25-34 pg Mean Corpuscular Hemoglobin Concent 32 32-36 g/dL Red Cell Distribution Width 13.8 10.0-14.5 % Platelet Count 128 L 130-400 10^3/uL Mean Platelet Volume 9.7 9.0-12.2 fL Immature Granulocyte % (Auto) 1 % Neutrophils (%) (Auto) 78 H 42-75 % Lymphocytes (%) (Auto) 11 L 12-44 % Monocytes (%) (Auto) 7 0-12 % Eosinophils (%) (Auto) 3 0-10 % Basophils (%) (Auto) 0 0-10 % Neutrophils # (Auto) 11.7 H 1.8-7.8 10^3/uL Lymphocytes # (Auto) 1.7 1.0-4.0 10^3/uL Monocytes # (Auto) 1.0 0.0-1.0 10^3/uL Eosinophils # (Auto) 0.4 H 0.0-0.3 10^3/uL Basophils # (Auto) 0.0 0.0-0.1 10^3/uL Immature Granulocyte # (Auto) 0.1 0.0-0.1 10^3/uL Neutrophils % (Manual) 84 % Lymphocytes % (Manual) 9 % Monocytes % (Manual) 4 % Eosinophils % (Manual) 1 % Reactive Lymphocytes 2 % Percent Immature Platelet Fraction 1.7 0.0-7.6 % Blood Morphology Comment NORMAL Sodium Level 138 135-145 MMOL/L Potassium Level 4.8 3.6-5.0 MMOL/L Chloride Level 108 H 98-107 MMOL/L Carbon Dioxide Level 18 L 21-32 MMOL/L Anion Gap 12 5-14 MMOL/L Blood Urea Nitrogen 47 H 7-18 MG/DL Creatinine 5.73 H 0.60-1.30 MG/DL Estimat Glomerular Filtration Rate 9 BUN/Creatinine Ratio 8 Glucose Level 98 70-105 MG/DL Calcium Level 8.7 8.5-10.1 MG/DL My Orders Orders - REBEKAH COLEMAN MD Ed Iv/Invasive Line Start (11/12/22 07:22) Cbc With Automated Diff (11/12/22 07:22) Basic Metabolic Panel (11/12/22 07:22) Blood Culture (11/12/22 07:22) Chest 1 View, Ap/Pa Only (11/12/22 07:22) Us Venous Upper Ext Rt (11/12/22 07:22) Lactic Acid Analyzer (11/12/22 07:22) Blood Culture (11/12/22 08:02) Enoxaparin Injection (Lovenox Injection) (11/12/22 09:45) Manual Differential (11/12/22 09:37) Vancomycin Injection (Vancomycin Injecti (11/12/22 10:45) Medications Given in ED Current Medications Medications Dose Ordered Sig/Christopher Route Start Time Stop Time Status Last Admin Dose Admin Enoxaparin Sodium 120 mg ONCE ONCE SC 11/12/22 09:45 11/12/22 09:46 DC 11/12/22 10:57 120 MG Vital Signs/I&O 11/12/22 11/12/22 06:50 06:50 Temp 36.1 Pulse 90 Resp 20 B/P (MAP) 168/67 (100) Pulse Ox 99 O2 Delivery Room Air Room Air Capillary Refill : Progress Note : Time: 11:29 Progress Note Patient seen and evaluated by me. Evaluation today includes physical exam, CBC, basic metabolic panel, lactic acid, venous ultrasound of the right upper extremity and chest x-ray. Pertinent physical exam findings include well-d eveloped well-nourished -Luxembourger female, obese, no acute distress. She has a wound over the right bicep consistent with recent revision of her fistula. No drainage, significantly increased erythema and warmth. Not fluctuant. She has tenderness just above the right clavicle and the right lower neck with some swelling. Distal pulses in the right arm are intact. Normal sensation, normal range of motion. Heart is regular, lungs are clear. No lower extremity edema. No focal neuro findings. No signs of volume overload. Vital signs are stable. Differential diagnosis based on history and physical exam, cellulitis right u pper extremity, pulmonary embolism, acute coronary syndrome. Labs reviewed by me, CBC shows a total white blood cell count of 14.9, hemoglobin of 8.2, hematocrit 26. Platelet count at 128. 78% neutrophils. Basic metabolic panel significant for BUN of 47 creatinine of 5.73 GFR is 8 consistent with her end-stage renal disease. Glucose is 98. Lactic is 0.87. Patient's chest x-ray is unremarkable, no evidence of pulmonary edema/increased pulmonary vascular congestion. Stable mild cardiomegaly. Ultrasound of the right upper extremity shows occlusive thrombus in the right internal jugular vein that extends into the right subclavian. There is no comment on the swelling in the right upper extremity. I discussed the case with Dr Ramirez (the patient's Corner [facility] at [facility]). He indicated he would like her transferred for vascular access. I attempted to speak with Dr Cordoba (the patient's surgeon) however he was unavailable. I finally spoke with Dr Moreau - hospitalist) and he graciously accepted. Patient was treated with 120mg of Lovenox for her DVT. She is resting comfortably. No ongoing CP or SOB. VSS. Pending transfer to [facility] at this time. Diagnostic Imaging Diagonstic Imaging: Xray Plain Films/CT/US/NM/MRI: chest Comments [facility] [place], [place] NAME: [facility] REC#: [id number] PT STATUS: REG ER : 1980 PHYSICIAN: REBEKAH COLEMAN MD ADMIT DATE: 11/12/22/ER Draft Date of Exam:11/12/22 CHEST 1 VIEW, AP/PA ONLY CLINICAL INDICATION: Patient with shortness of air. EXAM: Portable chest x-ray upright view. COMPARISON: Chest x-ray dated 10/15/2021. FINDINGS: There is interval placement of a vascular access catheter overlying the right chest with distal portion overlying the expected region of the distal superior vena cava. Lungs/pleura: Lungs are clear. There is no pneumothorax. There is no pleural effusion. Mediastinum: Unremarkable. Pulmonary vasculature: Unremarkable. Heart: Stable mild cardiomegaly. Bones/extrathoracic soft tissue: Unremarkable. IMPRESSION: 1: Interval placement of vascular access catheter overlying the right chest with distal portion overlying the expected region of distal superior vena cava. There is no pneumothorax. 2: Stable mild cardiomegaly with no significant pulmonary vascular congestion. 3: There is no lung infiltrate. Dictated on workstation # [id number] Dict: 11/12/22836 Trans: 11/12/22840 CVB [id number] Interpreted by: KAREEM ALEXANDRE MD Electronically signed by: Diagonstic Imaging: Ultrasound Comments [facility] [place], [place] NAME: [facility] REC#: [id number] PT STATUS: REG ER : 1980 PHYSICIAN: REBEKAH COLEMAN MD ADMIT DATE: 11/12/22/ER Draft Date of Exam:11/12/22 US VENOUS UPPER EXT RT Technique: Live grayscale and color Doppler ultrasound was performed of the right upper extremity venous system. Reason for exam: Recent right internal jugular line placement. Chest pain. Swelling. COMPARISON: None. FINDINGS: Duplex Doppler, koenig-scale and color-flow imaging of the right upper extremity veins. Occlusive deep vein thrombus is visualized within the right internal jugular vein and right subclavian vein surrounding the central line. The right axillary, brachial, radial, and ulnar veins are patent with normal color Doppler filling and compressibility. The superficial veins (basilic and cephalic veins) are patent. IMPRESSION: 1. Occlusive deep vein thrombus involving the right internal jugular vein and right subclavian vein. This appears associated with the right-sided central line. Dictated on workstation # [id number] Dict: 11/12/22836 Trans: 11/12/22840 SA [id number] Interpreted by: NAIN PANDA DO Electronically signed by: Departure Impression Primary Impression: DVT (deep venous thrombosis) Qualified Codes: I82.621 - Acute embolism and thrombosis of deep veins of right upper extremity Additional Impression: ESRD (end stage renal disease) on dialysis Disposition: XFER SHT-TRM HOSP Condition: Stable Transfer Transfer Reason: Exceeds level of care Time Spoke to Accepting Phy: 11:10 Transfer Progress Notes DIscussed with Dr Moreau - accepts patient for admission Transfer Facility: [facility] Method of Transfer: EMS Departure-Patient Inst. Referrals: [facility] (PCP/Family) Primary Care Physician REBEKAH COLEMAN MD Nov 12, 2022 07:06
--- NOTE | 2022-11-12 08:41 | Diagnostic Imaging Report ---
Technique: Live grayscale and color Doppler ultrasound was performed of the right upper extremity venous system. Reason for exam: Recent right internal jugular line placement. Chest pain. Swelling. COMPARISON: None. FINDINGS: Duplex Doppler, koenig-scale and color-flow imaging of the right upper extremity veins. Occlusive deep vein thrombus is visualized within the right internal jugular vein and right subclavian vein surrounding the central line. The right axillary, brachial, radial, and ulnar veins are patent with normal color Doppler filling and compressibility. The superficial veins (basilic and cephalic veins) are patent. IMPRESSION: 1. Occlusive deep vein thrombus involving the right internal jugular vein and right subclavian vein. This appears associated with the right-sided central line. Dictated by: Dictated on workstation # [id number]
--- NOTE | 2022-11-12 08:41 | Diagnostic Imaging Report ---
CLINICAL INDICATION: Patient with shortness of air. EXAM: Portable chest x-ray upright view. COMPARISON: Chest x-ray dated 10/15/2021. FINDINGS: There is interval placement of a vascular access catheter overlying the right chest with distal portion overlying the expected region of the distal superior vena cava. Lungs/pleura: Lungs are clear. There is no pneumothorax. There is no pleural effusion. Mediastinum: Unremarkable. Pulmonary vasculature: Unremarkable. Heart: Stable mild cardiomegaly. Bones/extrathoracic soft tissue: Unremarkable. IMPRESSION: 1: Interval placement of vascular access catheter overlying the right chest with distal portion overlying the expected region of distal superior vena cava. There is no pneumothorax. 2: Stable mild cardiomegaly with no significant pulmonary vascular congestion. 3: There is no lung infiltrate. Dictated by: Dictated on workstation # [id number]
[2022-11-12] MEDS ORDERED: ENOXAPARIN 60 MG/0.6 ML (LOVENOX) SYR SC ONE (09:45)
[2022-11-12 10:00] LABS: BASOPHILS % (AUTO) 0 % (0-10); EOSINOPHILS # (AUTO) 0.4 10^3/uL (0.0-0.3); EOSINOPHILS % (AUTO) 3 % (0-10); HEMATOCRIT 26 % (35-52); HEMOGLOBIN 8.2 g/dL (11.5-16.0); LYMPHOCYTES # (AUTO) 1.7 10^3/uL (1.0-4.0); LYMPHOCYTES % (AUTO) 11 % (12-44); MEAN CORPUSCULAR HEMOGLOBIN 27 pg (25-34); MEAN CORPUSCULAR HGB CONC 32 g/dL (32-36); MEAN CORPUSCULAR VOLUME 83 fL (80-99); MEAN PLATELET VOLUME 9.7 fL (9.0-12.2); MONOCYTES % (AUTO) 7 % (0-12); NEUTROPHILS # (AUTO) 11.7 10^3/uL (1.8-7.8); NEUTROPHILS % (AUTO) 78 % (42-75); PLATELET COUNT 128 10^3/uL (130-400); WHITE BLOOD COUNT 14.9 10^3/uL (4.3-11.0)
[2022-11-12 10:29] LABS: POTASSIUM 4.8 MMOL/L (3.6-5.0)
[2022-11-12 10:30] LABS: CALCIUM 8.7 MG/DL (8.5-10.1)
[2022-11-12 10:35] LABS: CREATININE SERUM 5.73 MG/DL (0.60-1.30)
[2022-11-12] MEDS ORDERED: VANCOMYCIN INJECTION 1,000 MG in NS (IVPB) 250 ML IV ONE (10:45)
[2022-11-12 11:01] LABS: EOSINOPHILS % (MANUAL) 1 %; LYMPHOCYTES % (MANUAL) 9 %; MONOCYTES % (MANUAL) 4 %; NEUTROPHILS % (MANUAL) 84 %; RBC MORPH NORMAL; REACTIVE LYMPHOCYTES 2 %
[2022-11-12] MEDS ORDERED: LIDOCAINE 1% INJ 20 ML VIAL ONE (11:55)
[2022-11-12 14:49] VITALS: BP 148/86
== END 2022-11-12 15:10 | disposition short-term general hospital (02) ==
LOC: EDUNIT# 06:41 → ER 06:43
DX: I82.C11 Acute embolism and thrombosis of right internal jugular vein (principal); I82.B11 Acute embolism and thrombosis of right subclavian vein; I12.0 Hypertensive chronic kidney disease with stage 5 chronic kidney disease or end stage renal disease; E11.22 Type 2 diabetes mellitus with diabetic chronic kidney disease; N18.6 End stage renal disease; I51.7 Cardiomegaly; E66.9 Obesity, unspecified; Z68.42 Body mass index [BMI] 45.0-49.9, adult; Z99.2 Dependence on renal dialysis
CPT/HCPCS: 36415; 71045; 80048; 82947; 83605; 85007; 85027; 87040

== ENCOUNTER → 2023-02-09 | Outpatient (CLI) | payer OTHER ==
[~2023-02-09] MED LIST changes: -OFLO5DRO3 OP; +OFLO5DRO8 OP
--- NOTE | 2023-02-10 08:33 | Diagnostic Imaging Report ---
Procedure: US Thyroid. Technique: Multiple real-time grayscale images were obtained of the thyroid in various projections. Date: February 09, 2023. Indication: 42-year-old female, thyroid nodule. Comparison: Ultrasound thyroid February 05, 2022. Findings: There is a heterogeneously hypoechoic nodule in the mid right lobe of the thyroid measuring 6 x 6 x 7 mm in size. There is no clearly demonstrated internal blood flow. There is an additional heterogeneously echoic solid nodule in the inferior aspect of the right lobe of the thyroid which measures 3.5 x 3.5 x 2.5 cm in size with internal blood flow. There is a heterogeneously hypoechoic nodule in the mid left lobe of thyroid measuring 11 x 15 x 9 mm in size with internal blood flow. The right lobe of the thyroid measures 6.3 x 2.6 x 2.6 cm in size. The left lobe of thyroid measures 6.2 x 1.8 x 2.7 cm in size. Thyroid vascularity appears to be within normal limits. IMPRESSION: 1. Solid nodule in the right lobe of the thyroid currently measuring 3.5 x 3.5 x 2.5 cm in size which is very mildly increased in size since the comparison ultrasound. Recommend fine-needle aspiration for definitive diagnosis. 2. Additional thyroid nodules in the right and left lobes of the thyroid with a left-sided nodule measuring up to 15 mm in size. Dictated by: Dictated on workstation # [id number]
== END ==
LOC: RAD 13:51
PROVIDERS: ATTEND Otolaryngology Otolaryngology/Facial Plastic Surgery
DX: E04.2 Nontoxic multinodular goiter (principal)
CPT/HCPCS: 76536

== ENCOUNTER → 2023-02-25 | Outpatient (CLI) | payer OTHER ==
[~2023-02-25] VITALS: Ht 157.5 cm; Wt 119.7 kg
[~2023-02-25] MED LIST changes: +LIDOCAINE 1% INJ 10 ML VIAL INJ ONE; +LIDOCAINE 1% INJ 10 ML VIAL ONE
--- NOTE | 2023-02-25 12:11 | Diagnostic Imaging Report ---
INDICATION: Right thyroid nodule. Patient presents for ultrasound-guided biopsy. Patient brought to the procedure room and placed on the table in the supine position. Ultrasound imaging of the right neck was performed to evaluate appropriate entry site. The right neck was then prepped and draped in usual sterile fashion. Small amount of 1% lidocaine was utilized for local anesthesia. 4 passes were made into the dominant solid nodule right lobe of thyroid utilizing 25-gauge needles and fine-needle aspiration technique. Hemostasis was obtained. Patient tolerated the procedure well and left the department in stable condition. IMPRESSION: Successful ultrasound guided fine-needle aspiration of the dominant solid nodule right lobe of thyroid. Pathology results are currently pending. Dictated by: Dictated on workstation # [id number]
== END ==
LOC: RAD 10:33
PROVIDERS: ATTEND Otolaryngology Otolaryngology/Facial Plastic Surgery
DX: E04.1 Nontoxic single thyroid nodule (principal)
CPT/HCPCS: 10005